=== PATIENT | female | born 1935 | race Caucasian/White ===

== ENCOUNTER → 2022-12-23 12:44 | Outpatient (REF) | payer OTHER, SELFPAY | LOC: WOUND 12:44 | PROVIDERS: ATTENDING PHYSICIAN Surgery; REFERRING PHYSICIAN Nurse Practitioner Adult Health | DX: I87.311 Chronic venous hypertension (idiopathic) with ulcer of right lower extremity (principal); L97.812 Non-pressure chronic ulcer of other part of right lower leg with fat layer exposed; L88 Pyoderma gangrenosum; I87.2 Venous insufficiency (chronic) (peripheral); I73.9 Peripheral vascular disease, unspecified; I10 Essential (primary) hypertension; I73.00 Raynaud's syndrome without gangrene | CPT/HCPCS: 99212 ==

== ENCOUNTER 2023-07-11 15:13 | Observation (INO) | payer OTHER, SELFPAY ==
[2023-07-11 13:03] VITALS: BP 123/76
[2023-07-11 13:32] VITALS: BMI 16.2
[2023-07-11] MEDS: NSS 500 IV (13:49)
[2023-07-11 14:08] LABS: Urine Albumin Trace (Neg - Trace); Urine Bilirubin Negative (Negative); Urine Character Clear (Clear); Urine Color Yellow; Urine Glucose Negative (Negative); Urine Ketone Negative (Negative); Urine Leukocyte Negative (Negative); Urine Nitrite Negative (Negative); Urine Occult Blood Negative (Negative); Urine Urobilinogen Negative (Neg - 1+)
[2023-07-11 14:12] LABS: % Basophils 0.5 % (0-2); % Eosinophils 0.7 % (0-6); % Immature Granulocytes 0.2 % (0-0.5); % Lymphocytes 24.5 % (20.5-51.1); % Neutrophils 66.1 % (42.2-75.2); Absolute Lymphocytes 1.1 10^3/uL (1.2-3.4); Absolute Monocytes 0.4 10^3/uL (0.1-0.6); Absolute Neutrophils 2.9 10^3/uL (1.4-6.5); Hematocrit 38.9 % (37.0-47.0); Hemoglobin 13.3 g/dL (12.0-16.0); Mean Corp Hgb Conc. 34.2 g/dL (33.0-37.0); Mean Corpuscular Hgb 31.9 pg (27.0-31.0); Mean Corpuscular Volume 93.3 fL (81.0-99.0); Mean Platelet Volume 11.4 fL (7.4-10.4); Nucleated Red Blood Cells % 0.5 %; Platelet Count 207 10^3/uL (130-400); Red Blood Cell Count 4.17 10^6/uL (4.20-5.40); Red Cell Dist. Width 13.8 % (11.5-14.5); White Blood Cell Count 4.4 10^3/uL (4.8-10.8)
[2023-07-11 14:18] LABS: ALT (SGPT) 46 U/L (0-35); AST (SGOT) 60 U/L (14-36); Albumin 3.1 g/dl (3.5-5.0); Alkaline Phosphatase 245 U/L (38-126); Blood Urea Nitrogen 64 mg/dl (7-17); Calcium 9.2 mg/dl (8.4-10.2); Carbon Dioxide 33 mmol/L (22-30); Chloride 104 mmol/L (98-107); Estimated Creatinine Clearance 16 ml/min; Glucose 88 mg/dl (70-99); Potassium 3.8 mmol/L (3.5-5.1); Sodium 139 mmol/L (135-145); Total Bilirubin 0.9 mg/dl (0.2-1.3); eGFR 33.52
--- NOTE | 2023-07-11 14:28 | ED.GENMED ---
History of Present Illness
General
Chief Complaint: Failure to Thrive
Time Seen by Provider: 07/11/23 13:22
Travel History
Have you had any contact with someone who has COVID-19?: No
Do you have any symptoms of coronavirus? Fever > 100 degrees, chills, cough, shortness of breath, sore throat, loss of taste or smell, muscle aches, or headache?: No
History of Present Illness
History of Present Illness:
87-year-old female with history of A-fib, chronic lower extremity wounds on provide of doxycycline, mitral valve prolapse, hypertension, hyperlipidemia, and congestive heart failure presents to the emergency department for evaluation of poor p.o.
intake, cognitive changes, and general malaise for the past week. Patient was admitted to this hospital last month for lower extremity cellulitis and also treated for UTI at that time. Has not been on antibiotics for some time. Family is
concerned for a possible UTI. According to her daughter she has a difficult time remembering to take medications and has to be coerced into eating or drinking. Patient denies any acute complaints right now
Past History
Past History
ED Past Medical History: Arrthythmia (Paroxysmal atrial fibrillation), HTN, Hypercholesterolemia, Hypothyroidism and Other (Colitis)
ED Past Surgical History: Orthopedic (Cervical fusion, right foot melanoma removal)
Social History
Tobacco: Non-smoker
Alcohol: None
Personal:
Living: alone
Employment: Retired
Family History
Family History: Other (reviewed and Noncontributory)
Review of Systems
Review of Systems
Allergies reviewed?: Yes
All Other Systems: ROS reviewed and negative except as documented in HPI and ROS
Phy Exam
Physical Exam
Physical Exam:
GEN: Frail and cachectic appearing, no immediate distress
HEENT: Oral mucosa dry, no scleral icterus
Cardiac: Regular rate and rhythm, no murmurs
Lung: No respiratory distress, no tachypnea
Abdomen: Soft, nontender
MSK: No gross deformity or injuries
Skin: Good color, no pallor or jaundice, no rashes
Neuro: AO x3, moves all extremities freely
Psych: Calm, cooperative
Course
Orders/Labs/Results
Orders:
Orders
07/11/23 13:29
Straight cath- Treatment ONCE
0.9% Sodium Chloride 500 ml [Nss] 500 ml IV BOLUS
07/11/23 13:37
Complete Blood Count/With Diff Urgent
Comprehensive Metabolic Panel Urgent
07/11/23 13:48
Urinalysis Reflex To Culture Urgent
Date Specimen was Collected: 07/11/23
Time Specimen was Collected: 13:47
Abnormal Lab Results
07/11/23
13:37
Carbon Dioxide 33 H mmol/L
(22-30)
BUN 64 H mg/dl
(7-17)
Creatinine 1.5 H mg/dL
(0.6-1.0)
AST 60 H U/L
(14-36)
ALT 46 H U/L
(0-35)
Alkaline Phosphatase 245 H U/L
(38-126)
Total Protein 6.0 L g/dl
(6.3-8.2)
Albumin 3.1 L g/dl
(3.5-5.0)
07/11/23 13:37
Vital Signs
Initial and Last Documented VS:
Initial Vital Signs
Temp Pulse Resp BP Pulse Ox
97.7 F 83 16 123/76 100
07/11/23 13:03 07/11/23 13:03 07/11/23 13:03 07/11/23 13:03 07/11/23 13:03
Last Documented Vital Signs
Temp Pulse Resp BP Pulse Ox
97.7 F 83 16 123/76 100
07/11/23 13:03 07/11/23 13:03 07/11/23 13:03 07/11/23 13:03 07/11/23 13:03
MDM/Problems Addressed
MDM/Problems Addressed:
Unclear etiology to the patient's failure to thrive however she does appear severely devitalized and her renal function is abnormal. Cognitive changes are likely on the basis of uremia. Gentle IV fluids initiated in the emergency department. Will
require hospitalization for further IV fluid resuscitation and medical workup
*Critical Care Note
Total Time (30-74mins, 75-104mins- exclusive of procedures): Not Applicable
ED Attending Note
-
Portions of this chart may have been created with voice recognition software.� Occasional wrong word or��sound alike� substitutions may have occurred due to the inherent limitations of voice recognition software.
Discharge Plan
Departure
Patient Disposition: Admit
Date of Disposition: 07/11/23
Time of Disposition: 14:31
Presentation/result/management discussed w/ accepting MD/DO: Hospitalist
Discharge Problem:
Acute kidney injury, Acute metabolic encephalopathy
Prescriptions:
No Action
levothyroxine 50 MCG tablet
50 mcg PO DAILY
cholecalciferol (vitamin D3) 2,000 UNITS tablet
2,000 units PO DAILY
Eliquis 2.5 MG tablet
2.5 mg PO BID
metoprolol tartrate 25 MG tablet
12.5 mg PO BID Qty: 0 0RF
atorvastatin 20 MG tablet
20 mg PO QPM
Hold Instructions: Resume on 06/27/23.
pentoxifylline 400 mg tablet extended release
400 mg PO TID
furosemide 20 mg tablet
20 mg PO DAILY
Probiotic
1 tab PO QPM
doxycycline hyclate 100 MG capsule
100 mg PO BID
metformin 500 mg tablet
500 mg PO DAILY Qty: 0 0RF
Referrals:
Weston Robles MD [Family Provider] -
Interventions
Interventions:
*Risk Screen - Suicide Last Done: 07/11/23 13:32
*General Assessment Last Done: 07/11/23 13:32
*Neglect/Abuse Screening Last Done: 07/11/23 13:32
ED- Fall Risk Assessment Last Done: 07/11/23 13:32
*ED COVID-19 Vaccine History Last Done: 07/11/23 13:03
--- NOTE | 2023-07-11 14:34 | HPS.HSE ---
Addendum entered and electronically signed by Armen Reyes MD 07/11/23 15:14:
I saw and examined the patient.
The D[employer] OPERATOR or PA's note was reviewed and I agree with the note.
Comment: 87-year-old female presents with chief complaints of generalized weakness, fatigue, and poor oral intake.
123/76, 83, 16, 97.7 �F, 100% room air
NAD, awake and alert
RRR, normal S1/S2
CTAB
+BS/soft/NT/ND
CN2-12 intact
WBC 4.4
Cr 1.5, BUN 64
U/A nit/LE NEG, 0 WBC
Failure to thrive:
-pt has very mild FRANCIS and the 1L of NS ordered by the ER will probably bring the pt's Cr back to baseline (wt 38.8kg)
-cont with NS @ 50cc/hr, trend Cr
Weakness:
-PT/OT/CM
Severe protein calorie malnutrition
Original Note:
Family Physician
-
Family Physician: Moose Robles
Chief Complaint
-
generalized weakness, fatigue
History of Present Illness
87-year-old female with history of A-fib, chronic lower extremity wounds on provide of doxycycline, mitral valve prolapse, hypertension, hyperlipidemia, and congestive heart failure presents to the emergency department for evaluation of poor p.o.
intake, cognitive changes, and general malaise for the past week.� Patient was admitted to this hospital last month for lower extremity cellulitis and also treated for UTI at that time. According to her daughter she has a difficult time remembering
to take medications and has to be forced into eating or drinking.patient is sleeping more than usual. today she seemed more disoriented and was not able to focus which prompted daughter to bring her to the ER. � Patient denies any acute complaints
right now. denied fever, chills, chest pain, sob.denied ALLISON,dizzy or syncopal episode. denied abdominal pain, n,v, d. denied dysuria or hematuria.
patient still with b/l LE chronic wounds, wrapped with dressing. patient has chronic left groin excoriating. recived fluids in ER. admitting for further managment.
Medical History
Past Medical History
Past Medical History: Reports Other
Additional Past Medical History:
Paroxysmal A-fib
chronic bilateral lower extremity wounds
Mitral prolapse hypertension
Hyperlipidemia
Congestive heart failure
Past Surgical History: Reports Other
Additional Past Surgical History:
Cervical fusion
Right foot melanoma removed
Social History
Tobacco: Non-smoker
Alcohol: None
Drug: None
Personal: Single
Living: Alone
Family History
Family History: Not pertinent
Allergies / Home Medications
Allergies reflects when Allergies were last updated in [employer].
Home Medications with original date entered in [employer]
Allergy/Medication List:
Allergies
Allergy/AdvReac Type Severity Reaction Status Date / Time
vancomycin Allergy Mild Rash Verified 07/11/23 13:06
Cephalosporins Allergy Unknown Verified 07/11/23 13:06
erythromycin base Allergy HEADACHE Verified 07/11/23 13:06
ethyl chloride Allergy Unknown Verified 07/11/23 13:06
[Ethyl Chloride]
lactose Allergy INTOLERANT Verified 07/11/23 13:06
latex [Latex] Allergy Unknown Verified 07/11/23 13:06
Penicillins Allergy FEET PEEL Verified 07/11/23 13:06
Home Medications
apixaban 2.5 mg tablet (Eliquis) 2.5 mg PO BID Blood clot prevention/tx 09/27/17
levothyroxine 50 mcg tablet 50 mcg PO DAILY Thyroid 09/27/17
Probiotic 1 tab PO QPM Supplement 06/14/23
furosemide 20 mg tablet 20 mg PO DAILYPRN PRN edema 06/14/23
pentoxifylline 400 mg tablet,extended release 400 mg PO TID CVA 06/14/23
metformin 500 mg tablet 500 mg PO DAILY Diabetes #0 tabs 06/18/23
Kaopectate 1 dose PO DAILYPRN PRN diarrhea 07/11/23
atorvastatin 20 mg tablet 20 mg PO DAILY 07/11/23
cholecalciferol (vitamin D3) 50 mcg (2,000 unit) tablet 50 mcg PO DAILY 07/11/23
doxycycline monohydrate 50 mg capsule 50 mg PO NOON 07/11/23
metoprolol tartrate 25 mg tablet 12.5 mg PO BID 07/11/23
mirtazapine 7.5 mg tablet 7.5 mg PO HS 07/11/23
Review of Systems
-
Constitutional: Reports Fatigue
EENT: Reports No Symptoms
Respiratory: Reports No Symptoms
Cardiac: Reports No Symptoms
Abdomen/GI: Reports No Symptoms
: Reports No Symptoms
Musculoskeletal: Reports No Symptoms
Skin: Reports Rash (Left groin rash, bilateral lower extremity wound) and Other
Neurological: Reports Weakness
Endocrine: Reports No Symptoms
Hematologic/Lymphatic: Reports No Symptoms
Psych: Reports No Symptoms
Physical Exam
Vital Signs
Vital Signs
Temp Pulse Resp BP Pulse Ox
97.7 F 83 16 123/76 100
07/11/23 13:03 07/11/23 13:03 07/11/23 13:03 07/11/23 13:03 07/11/23 13:03
Physical Exam
General: Well Developed, Well Nourished and No Apparent Distress
HEENT: NormoCephalic, Moist mucous membranes and Atraumatic
Respiratory: Clear
Cardiac: S1/S2 and Regular Rhythm; No Murmur or Rub
GI: Soft, Non Tender, Non Distended and Normal Bowel Sounds; No Organomegaly
Rectal: Deferred by Provider
Musculoskeletal: No Clubbing, No Cyanosis and No Edema
Skin: Rash and Other (Left groin excoriation, bilateral lower extremity wound)
Neuro: AO x 3 and Nonfocal/grossly intact
Psych: Calm
Laboratory Results
-
07/11/23 13:37
07/11/23 13:37
Laboratory Results
Total Bilirubin 0.9 mg/dl (0.2-1.3) 07/11/23 13:37
AST 60 U/L (14-36) H 07/11/23 13:37
ALT 46 U/L (0-35) H 07/11/23 13:37
Alkaline Phosphatase 245 U/L (38-126) H 07/11/23 13:37
Data Reviewed
-
Lab Data: Labs Reviewed by me
Impression/Plan
-
# Acute encephalopathy likely from poor appetite
-at presentation orienting x3
-UA negative
#poor appetite likely failure to thrive
-speech, dietary consult
#fatigue/weakness likely from poor appetite
-Pt/OT consult
# Acute kidney injury on CKd stage 2 likely dehydration
-BUN 64, creatinine 1.5
-fluids in ER
-monitor BMP in am
-normal saline 50cc/hr
# Chronic LFT elevation
-AST 60, ALT 46, ALK 245
-no complaints of abdominal pain
-ctm
Left groin Baylee intertrigo
-Wound care consulted
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
# Chronic bilateral venous insufficiency
-Wound care consulted.
-Continue pentoxifylline
-doxy continued
#Paroxysmal atrial fibrillation
-Continue Eliquis
-Continue metoprolol
Essential hypertension
Hypercholesterolemia
-� statin
Hypothyroidism
-Continue levothyroxine
#type 2 Dm
-hold metformin due to FRANCIS
-sliding scale
-daily bgm
History of right foot melanoma
Full code
DVT prophylaxis�heparin
[2023-07-11 16:00] VITALS: BP 113/67
[2023-07-11 16:28] VITALS: BMI 16.2
[2023-07-11] MEDS: NSS 1000 IV (16:47)
[2023-07-11 16:48] LABS: Glucose - Point of Care 78 mg/dl (70-99)
[2023-07-11] MEDS: NOVOLOG FLEXPEN-LOW RESISTANCE SC (16:48)
[2023-07-11 17:01] VITALS: BMI 16.2
[2023-07-11] MEDS: TRENTAL 400 MG PO (17:11)
[2023-07-11] MEDS: VISBIOME 1 CAP PO (17:11)
--- NOTE | 2023-07-11 17:15 | PTCARENOTE ---
pt presents from ED via stretcher. pt is AAO*3, room air. Rectal temp 93.4. pt on heidi hugger. pt denies any pain at this time. pt is oriented to the room. daughter at the bedside updated. call ybarra within the reach. will continue plan of care.
[2023-07-11] MEDS: ELIQUIS 2.5 MG PO (20:30)
[2023-07-11] MEDS: DESENEX/MITRAZOL/ZEASORB 1 APPLIC TOPICAL (20:45)
[2023-07-11] MEDS: LOPRESSOR 12.5 MG PO (21:43)
[2023-07-11] MEDS: REMERON 7.5 MG PO (21:44)
[2023-07-11 21:59] LABS: Glucose - Point of Care 103 mg/dl (70-99)
[2023-07-11 23:48] VITALS: BP 111/56
[2023-07-12] MEDS: SYNTHROID 50 MCG PO (05:58)
[2023-07-12 06:19] LABS: Hematocrit 32.6 % (37.0-47.0); Hemoglobin 11.3 g/dL (12.0-16.0); Mean Corp Hgb Conc. 34.7 g/dL (33.0-37.0); Mean Corpuscular Hgb 32.8 pg (27.0-31.0); Mean Corpuscular Volume 94.5 fL (81.0-99.0); Mean Platelet Volume 11.8 fL (7.4-10.4); Platelet Count 172 10^3/uL (130-400); Red Blood Cell Count 3.45 10^6/uL (4.20-5.40); Red Cell Dist. Width 13.7 % (11.5-14.5); White Blood Cell Count 3.9 10^3/uL (4.8-10.8)
[2023-07-12 06:51] LABS: ALT (SGPT) 32 U/L (0-35); AST (SGOT) 47 U/L (14-36); Albumin 2.2 g/dl (3.5-5.0); Alkaline Phosphatase 182 U/L (38-126); Blood Urea Nitrogen 51 mg/dl (7-17); Calcium 8.3 mg/dl (8.4-10.2); Carbon Dioxide 29 mmol/L (22-30); Chloride 107 mmol/L (98-107); Direct Bilirubin 0.4 mg/dl (0.0-0.4); Estimated Creatinine Clearance 22 ml/min; Glucose 67 mg/dl (70-99); Sodium 141 mmol/L (135-145); Total Bilirubin 0.8 mg/dl (0.2-1.3); Total Protein 4.7 g/dl (6.3-8.2); eGFR 48.63
[2023-07-12 07:14] LABS: Glucose - Point of Care 60 mg/dl (70-99)
[2023-07-12 07:33] LABS: Glucose - Point of Care 66 mg/dl (70-99)
[2023-07-12 07:55] VITALS: BP 109/57
[2023-07-12 07:59] LABS: Glucose - Point of Care 99 mg/dl (70-99)
[2023-07-12] MEDS: NOVOLOG FLEXPEN-LOW RESISTANCE SC (08:19)
[2023-07-12] MEDS: TRENTAL 400 MG PO ×3 (08:41→17:04)
[2023-07-12] MEDS: ELIQUIS 2.5 MG PO ×2 (08:41→20:12)
[2023-07-12] MEDS: LOPRESSOR 12.5 MG PO ×2 (08:41→20:59)
[2023-07-12] MEDS: VITAMIN D3 (cholecalciferol) 50 MCG PO (08:41)
[2023-07-12] MEDS: LIPITOR 20 MG PO (08:41)
[2023-07-12] MEDS: DESENEX/MITRAZOL/ZEASORB 1 APPLIC TOPICAL ×2 (08:45→20:09)
[2023-07-12 10:19] VITALS: BMI 16.2
--- NOTE | 2023-07-12 11:05 | PTOTSP ---
Swallowing evaluation completed. Oral/pharyngeal swallowing within functional limits. Loose fitting dentures result in slower mastication. Patient reports that she knows to choose softer items and preferred to stay with current diet of regular and
thin liquids. She reports she has a poor appetite otherwise. Continue current diet for now. ST to monitor tolerance briefly. Continue regular and thin liquids
[2023-07-12 11:41] LABS: Glucose - Point of Care 168 mg/dl (70-99)
--- NOTE | 2023-07-12 11:54 | WOUNDNOTE ---
R ANTERIOR LOWER LEG
--- NOTE | 2023-07-12 11:55 | WOUNDNOTE ---
L LATERAL LOWER LEG
--- NOTE | 2023-07-12 11:56 | WOUNDNOTE ---
WON RN note: Patient admitted with acute kidney injury and acute metabolic encephalopathy.
See H&P for complete history.Patient lives with her daughter who does wound care with compression and is followed monthly by Dr. Fuentes.
PMH: pyoderma gangrenosum ulcer RLE, venous ulcers LLE, a fib (Eliquis), CKD, HTN, R foot melanoma removal, NIDDM, vein ablation. Patient on Doxycycline po for LE's.
Wound Location and type/assessment: Patient known to service, last seen 06/16/23. Admitted with: Healing Full thickness RLE wound to subcutaneous layer r/t venous insufficiency and hx of Pyoderma. L lateral leg with healing venous stasis ulcers.
Both legs mainly at ankles very dry and flaky, trace edema. Wounds much improved since last seen. Sacrum with blanchable red and intact skin. Heels blanchable red and intact. Pedal pulses are audible with Doppler. Seen by Dr Irwin last admission who
recommended compression. Using Farrow wraps at home.
Appetite: good.
Pressure redistribution devices in place: Accumax, patient can turn self in bed. Heels off bed with pillow. Air chair cushion under sacrum when sitting. Was in chair for breakfast this morning.
Plan: Assessed sacrum under silicone border foam. L leg dressing changed using Xeroform and silicone foam. R leg wound applied honey gel, Xeroform, alginate, abd pad and sandrita. A&D ointment applied to both legs, will order mineral oil for tomorrow.
To clean wounds used Vashe. Abdifatah wraps knee high both legs, patient tolerated. Adhesive foams applied to both heels, off bed with air cushion on pillow under calves.All supplies ordered from [facility] and are at bedside.
Will confirm orders with hospitalist and discussed with BRE Young.
Care plan to be updated and will follow as needed.
[2023-07-12] MEDS: NSS 1000 IV (12:17)
[2023-07-12] MEDS: VIBRAMYCIN 50 MG PO (12:17)
[2023-07-12] MEDS: NOVOLOG FLEXPEN-LOW RESISTANCE 1 UNITS SC ×2 (12:24→17:03)
--- NOTE | 2023-07-12 14:57 | W.PN.HOSP.TC ---
Today's Communication/Plan
-
Please see below
Assessment / Plan
Assessment / Plan
Physical Exam
General: Well Developed, Well Nourished and No Apparent Distress
HEENT: Normocephalic, Moist mucous membranes and Atraumatic
Respiratory: Clear
Cardiac: S1/S2 and Regular Rhythm
GI: Soft, Non Tender, Non Distended and Normal Bowel Sounds
Musculoskeletal: No Cyanosis and No Edema
Skin: Rash and Other (Left groin excoriation, bilateral lower extremity wounds covered in dressings)
Neuro: AAO x 3 and Nonfocal/grossly intact
Psych: Calm

Assessment/Plan
# Acute encephalopathy likely from poor appetite
-at presentation orienting x3
-UA negative
#poor appetite likely failure to thrive
-speech, dietary consult
#fatigue/weakness likely from poor appetite
#Failure to Thrive
-Pt/OT consult
# Acute kidney injury on CKd stage 2 likely dehydration
-BUN 64, creatinine 1.5
-fluids in ER
-monitor BMP in am
-normal saline 50cc/hr
# Chronic LFT elevation
-AST 60, ALT 46, ALK 245
-no complaints of abdominal pain
-ctm
Left groin Baylee intertrigo
-Wound care consulted
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
# Chronic bilateral venous insufficiency
-Wound care consulted.
-Continue pentoxifylline
-doxy continued
#Paroxysmal atrial fibrillation
-Continue Eliquis
-Continue metoprolol
Essential hypertension
Hypercholesterolemia
- statin
Hypothyroidism
-Continue levothyroxine
#type 2 Dm
-hold metformin due to FRANCIS
-sliding scale
-daily bgm
#Severe protein calorie malnutrition
History of right foot melanoma
Full code
DVT prophylaxis�On Eliquis
Anticipated Discharge: 24 - 48 hours
Subjective/Interval History
-
Date of Service: July 12, 2023
Patient was seen and examined. She reported no new symptoms and denied any new complaints.
Objective Data
-
Labs:
Laboratory Results
07/12/23
05:11
WBC 3.9 L
Hgb 11.3 L
Hct 32.6 L
Plt Count 172
Sodium 141
Potassium 4.0
Chloride 107
Carbon Dioxide 29
BUN 51 H
Creatinine 1.1 H
Glucose 67 L
Calcium 8.3 L
Total Bilirubin 0.8
AST 47 H
ALT 32
Alkaline Phosphatase 182 H
Vital Signs:
Vital Signs
Temp Pulse Resp BP Pulse Ox
97.5 F 70 18 109/57 100
07/12/23 07:55 07/12/23 07:55 07/12/23 07:55 07/12/23 07:55 07/12/23 07:55
I&O
07/11/23 07/12/23 07/13/23
06:59 06:59 06:59
Intake Total 600 / 600
Balance 600 / 600
[2023-07-12 15:55] VITALS: BP 97/59
--- NOTE | 2023-07-12 16:03 | CM ---
Alert awake oriented patient who lives alone in a 1 story home with 2 steps to enter. Bed/bathroom are on first floor.She is assisted in all activities of daily living by jean Gonzalez..Offered VN she requested [facility] resumption.
Cane walker
[facility] ?SNF hx
Pharmacy [facility]
PCP Dr Joao Mendez
PLAN Home with [facility]
--- NOTE | 2023-07-12 16:25 | PTCARENOTE ---
Patient placed back on Benjamin hugger, unable to obtain oral temp. Rectal temp 94.7.
[2023-07-12 16:33] VITALS: BMI 17.8
[2023-07-12 16:56] LABS: Glucose - Point of Care 199 mg/dl (70-99)
[2023-07-12] MEDS: VISBIOME 1 CAP PO (17:04)
[2023-07-12] MEDS: REMERON 7.5 MG PO (20:58)
[2023-07-12 21:26] LABS: Glucose - Point of Care 146 mg/dl (70-99)
[2023-07-12 23:33] VITALS: BP 99/49
[2023-07-13 03:06] LABS: Glucose - Point of Care 64 mg/dl (70-99)
[2023-07-13 03:42] LABS: Glucose - Point of Care 144 mg/dl (70-99)
--- NOTE | 2023-07-13 03:45 | PTCARENOTE ---
Blood sugar at 0300, -- 64, patient asymptomatic, juice provided. Recheck blood sugar at this time is 144.
[2023-07-13] MEDS: SYNTHROID 50 MCG PO (06:26)
[2023-07-13 07:17] LABS: Glucose - Point of Care 78 mg/dl (70-99)
[2023-07-13] MEDS: NOVOLOG FLEXPEN-LOW RESISTANCE SC ×2 (07:30→13:18)
[2023-07-13 07:31] VITALS: BP 108/65
[2023-07-13 08:29] VITALS: BMI 16.5
[2023-07-13 08:31] VITALS: BP 108/65
[2023-07-13 09:33] LABS: Glucose - Point of Care 74 mg/dl (70-99)
[2023-07-13] MEDS: TRENTAL 400 MG PO ×3 (09:42→17:14)
[2023-07-13] MEDS: LOPRESSOR 12.5 MG PO ×2 (09:42→19:28)
[2023-07-13] MEDS: VITAMIN D3 (cholecalciferol) 50 MCG PO (09:42)
[2023-07-13] MEDS: ELIQUIS 2.5 MG PO ×2 (09:42→19:26)
[2023-07-13] MEDS: LIPITOR 20 MG PO (09:43)
[2023-07-13] MEDS: HYDROPHOR 1 APPLIC TOPICAL (09:44)
[2023-07-13] MEDS: DESENEX/MITRAZOL/ZEASORB 1 APPLIC TOPICAL ×2 (09:45→19:31)
[2023-07-13] MEDS: VIBRAMYCIN 50 MG PO (12:11)
[2023-07-13 12:58] LABS: Glucose - Point of Care 118 mg/dl (70-99)
[2023-07-13 15:55] VITALS: BP 93/53
[2023-07-13 17:10] LABS: Glucose - Point of Care 170 mg/dl (70-99)
[2023-07-13] MEDS: NOVOLOG FLEXPEN-LOW RESISTANCE 1 UNITS SC (17:13)
[2023-07-13] MEDS: VISBIOME 1 CAP PO (17:14)
--- NOTE | 2023-07-13 17:17 | W.PN.HOSP.TC ---
Today's Communication/Plan
-
PT/OT
Placement
Assessment / Plan
Assessment / Plan
Physical Exam
General: Well Developed, Well Nourished and No Apparent Distress
HEENT: Normocephalic, Moist mucous membranes and Atraumatic
Respiratory: Clear
Cardiac: S1/S2 and Regular Rhythm
GI: Soft, Non Tender, Non Distended and Normal Bowel Sounds
Musculoskeletal: No Cyanosis and No Edema
Skin: Rash and Other (Left groin excoriation, bilateral lower extremity wounds covered in dressings)
Neuro: AAO x 3 and Nonfocal/grossly intact
Psych: Calm

Assessment/Plan
# Acute encephalopathy likely from poor appetite
-at presentation oriented x3
-UA negative
#Poor appetite likely failure to thrive
-speech, dietary consult
#fatigue/weakness likely from poor appetite
#Failure to Thrive
-Pt/OT consult
# Acute kidney injury on CKd stage 2 likely dehydration
-BUN 64, creatinine 1.5
-fluids in ER
-monitor BMP
-normal saline 50cc/hr
# Chronic LFT elevation
-AST 60, ALT 46, ALK 245
-no complaints of abdominal pain
-ctm
Left groin Baylee intertrigo
-Wound care consulted
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
# Chronic bilateral venous insufficiency
-Wound care consulted.
-Continue pentoxifylline
-doxy continued
#Paroxysmal atrial fibrillation
-Continue Eliquis
-Continue metoprolol
Essential hypertension
Hypercholesterolemia
- statin
Hypothyroidism
-Continue levothyroxine
#type 2 Dm
-hold metformin due to FRANCIS
-sliding scale
-daily bgm
#Severe protein calorie malnutrition
History of right foot melanoma
Full code
DVT prophylaxis�On Eliquis
Anticipated Discharge: > 48 hours
Subjective/Interval History
-
Date of Service: July 13, 2023
Patient was seen and examined. She denied any new symptoms.
Objective Data
-
Vital Signs:
Vital Signs
Temp Pulse Resp BP Pulse Ox
97.5 F 61 14 108/65 99
07/13/23 10:00 07/13/23 09:42 07/13/23 07:31 07/13/23 09:42 07/13/23 07:31
I&O
07/12/23 07/13/23 07/14/23
06:59 06:59 06:59
Intake Total 600 / 600 840 / 840
Balance 600 / 600 840 / 840
[2023-07-13 20:20] LABS: Hemoglobin 11.7 g/dL (12.0-16.0); Mean Corp Hgb Conc. 34.4 g/dL (33.0-37.0); Mean Corpuscular Hgb 32.1 pg (27.0-31.0); Mean Corpuscular Volume 93.2 fL (81.0-99.0); Platelet Count 171 10^3/uL (130-400); Red Blood Cell Count 3.65 10^6/uL (4.20-5.40)
[2023-07-13 20:48] LABS: ALT (SGPT) 60 U/L (0-35); AST (SGOT) 92 U/L (14-36); Albumin 2.2 g/dl (3.5-5.0); Alkaline Phosphatase 236 U/L (38-126); Blood Urea Nitrogen 32 mg/dl (7-17); Calcium 8.4 mg/dl (8.4-10.2); Carbon Dioxide 29 mmol/L (22-30); Chloride 105 mmol/L (98-107); Estimated Creatinine Clearance 28 ml/min; Glucose 173 mg/dl (70-99); Potassium 3.8 mmol/L (3.5-5.1); Sodium 137 mmol/L (135-145); Total Bilirubin 0.7 mg/dl (0.2-1.3); Total Protein 4.8 g/dl (6.3-8.2); eGFR > 60.00
[2023-07-13] MEDS: REMERON 7.5 MG PO (21:17)
[2023-07-13 21:29] LABS: Glucose - Point of Care 127 mg/dl (70-99)
[2023-07-13 23:44] VITALS: BP 141/80
[2023-07-14 03:09] LABS: Glucose - Point of Care 91 mg/dl (70-99)
[2023-07-14] MEDS: SYNTHROID 50 MCG PO (05:56)
[2023-07-14 07:00] VITALS: BP 116/66
[2023-07-14 07:57] LABS: % Basophils 0.5 % (0-2); % Immature Granulocytes 0.3 % (0-0.5); % Neutrophils 63.2 % (42.2-75.2); Absolute Lymphocytes 1.1 10^3/uL (1.2-3.4); Absolute Monocytes 0.3 10^3/uL (0.1-0.6); Absolute Neutrophils 2.4 10^3/uL (1.4-6.5); Hematocrit 34.1 % (37.0-47.0); Hemoglobin 11.5 g/dL (12.0-16.0); Mean Corp Hgb Conc. 33.7 g/dL (33.0-37.0); Mean Corpuscular Hgb 31.3 pg (27.0-31.0); Mean Corpuscular Volume 92.9 fL (81.0-99.0); Mean Platelet Volume 11.4 fL (7.4-10.4); Nucleated Red Blood Cells % 0.8 %; Platelet Count 170 10^3/uL (130-400); Red Blood Cell Count 3.67 10^6/uL (4.20-5.40); Red Cell Dist. Width 14.2 % (11.5-14.5); White Blood Cell Count 3.9 10^3/uL (4.8-10.8)
--- NOTE | 2023-07-14 08:19 | W.PN.HOSP.TC ---
Today's Communication/Plan
-
Discharge today
Assessment / Plan
Assessment / Plan
Physical Exam
General: Well Developed, Well Nourished and No Apparent Distress
HEENT: Normocephalic, Moist mucous membranes and Atraumatic
Respiratory: Clear
Cardiac: S1/S2 and Regular Rhythm
GI: Soft, Non Tender, Non Distended and Normal Bowel Sounds
Musculoskeletal: No Cyanosis and No Edema
Skin: Rash and Other (Left groin excoriation, bilateral lower extremity wounds covered in dressings)
Neuro: AAO x 3 and Nonfocal/grossly intact
Psych: Calm

Assessment/Plan
# Acute encephalopathy likely from poor appetite
-At presentation oriented x3
-UA negative
-CXR with no pneumonia
#Small bilateral pleural effusions with mild adjacent basilar compressive atelectasis.
#Cardiomegaly
#Poor appetite likely failure to thrive
-Speech, dietary consult
#Chronic Hypothermia
-Possibly from malnutrition
-Outpatient work-up and treatment
#fatigue/weakness likely from poor appetite
#Failure to Thrive
-PT/OT consult
# Acute kidney injury - RESOLVED - on CKD Stage 2 - likely dehydration
-fluids in ER
-monitor BMP
# Chronic Hepatic Transaminase elevation
-AST 60, ALT 46, ALK 245
-no complaints of abdominal pain
-ctm
#Left groin Baylee intertrigo
-Wound care consulted
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
# Chronic bilateral venous insufficiency
-Wound care consulted.
-Continue pentoxifylline
-doxy continued
#Normocytic Anemia
-Will need outpatient workup
#Paroxysmal atrial fibrillation
-Continue Eliquis
-Continue metoprolol
#Essential hypertension
#Hypercholesterolemia
- statin
#Hypothyroidism
-Continue levothyroxine
#Type 2 Diabetes Mellitus
-Resume Metformin on discharge
-sliding scale
-daily bgm
#Severe protein calorie malnutrition
#History of right foot melanoma
Full code
DVT prophylaxis�On Eliquis
I spoke extensively on 07/14/23 with patient's daughter; all questions and concerns were answered to satisfaction.
More than 30 minutes spent in discharge including
Final examination of the patient
Summarizing hospital stay
Instructions for continuing care to all relevant caregivers
Preparation of discharge records, prescriptions, and referral forms
Total time spent (in minutes): 55
Anticipated Discharge: Today
Subjective/Interval History
-
Date of Service: July 14, 2023
Patient was seen and examined. She reported no new symptoms or complaints.
Objective Data
-
Labs:
Laboratory Results
07/13/23 07/14/23
20:14 07:32
WBC 5.0 3.9 L
Hgb 11.7 L 11.5 L
Hct 34.0 L 34.1 L
Plt Count 171 170
Sodium 137 Pending
Potassium 3.8 Pending
Chloride 105 Pending
Carbon Dioxide 29 Pending
BUN 32 H Pending
Creatinine 0.9 Pending
Glucose 173 H Pending
Calcium 8.4 Pending
Total Bilirubin 0.7 Pending
AST 92 H Pending
ALT 60 H Pending
Alkaline Phosphatase 236 H Pending
Vital Signs:
Vital Signs
Temp Pulse Resp BP Pulse Ox
97.3 F 68 16 141/80 99
07/13/23 23:45 07/13/23 23:44 07/13/23 23:44 07/13/23 23:44 07/13/23 23:44
I&O
07/13/23 07/14/23 07/15/23
06:59 06:59 06:59
Intake Total 840 / 840 720 / 720
Output Total 100 / 100
Balance 840 / 840 620 / 620
[2023-07-14 08:44] LABS: ALT (SGPT) 65 U/L (0-35); AST (SGOT) 82 U/L (14-36); Albumin 2.2 g/dl (3.5-5.0); Alkaline Phosphatase 282 U/L (38-126); Blood Urea Nitrogen 25 mg/dl (7-17); Calcium 8.1 mg/dl (8.4-10.2); Carbon Dioxide 28 mmol/L (22-30); Chloride 112 mmol/L (98-107); Estimated Creatinine Clearance 28 ml/min; Glucose 75 mg/dl (70-99); Potassium 3.8 mmol/L (3.5-5.1); Sodium 138 mmol/L (135-145); Total Bilirubin 0.8 mg/dl (0.2-1.3); Total Protein 4.8 g/dl (6.3-8.2); eGFR > 60.00
[2023-07-14] MEDS: ELIQUIS 2.5 MG PO (08:55)
[2023-07-14] MEDS: LIPITOR 20 MG PO (08:55)
[2023-07-14] MEDS: TRENTAL 400 MG PO ×2 (08:55→13:27)
[2023-07-14 09:06] LABS: Lactic Acid 0.7 mmol/L (0.7-2.0)
[2023-07-14 09:15] LABS: Glucose - Point of Care 67 mg/dl (70-99)
[2023-07-14] MEDS: NOVOLOG FLEXPEN-LOW RESISTANCE SC ×2 (09:15→11:15)
[2023-07-14] MEDS: DESENEX/MITRAZOL/ZEASORB 1 APPLIC TOPICAL (09:15)
[2023-07-14 09:50] LABS: Glucose - Point of Care 103 mg/dl (70-99)
[2023-07-14 10:12] VITALS: BP 124/73; PULSE 77
[2023-07-14 10:13] LABS: Cortisol, Random 6.9 ug/dl
[2023-07-14 11:09] LABS: Glucose - Point of Care 82 mg/dl (70-99)
[2023-07-14] MEDS: LOPRESSOR 12.5 MG PO (11:11)
[2023-07-14] MEDS: VITAMIN D3 (cholecalciferol) 50 MCG PO (11:11)
[2023-07-14] MEDS: HYDROPHOR 1 APPLIC TOPICAL (11:13)
[2023-07-14] MEDS: VIBRAMYCIN 50 MG PO (13:27)
[2023-07-14 15:00] VITALS: BP 91/60
--- NOTE | 2023-07-14 16:15 | W.DS.TRANS ---
DC Summary - Cloth Hand
-
Discharge Instructions:
Sleep Apnea Risk Low
Discharge Diagnosis/Procedures #Acute encephalopathy likely from poor appetite
#Small bilateral pleural effusions with mild
adjacent basilar compressive atelectasis.
#Cardiomegaly
#Poor appetite likely failure to thrive
#Chronic Hypothermia
#Fatigue/weakness likely from poor appetite
#Failure to Thrive
#Acute kidney injury - RESOLVED - on CKD Stage 2
- likely dehydration
#Chronic Hepatic Transaminase elevation
#Left groin Baylee intertrigo
#Right lower extremity wound secondary to
pyoderma gangrenosum
#Chronic bilateral venous insufficiency
#Normocytic Anemia
#Paroxysmal atrial fibrillation
#Essential hypertension
#Hypercholesterolemia
#Hypothyroidism
#Type 2 Diabetes Mellitus
#Severe protein calorie malnutrition
#History of right foot melanoma
Diet As tolerated
Activity As tolerated
Driving Restrictions No driving
Other Services VN
Specialty Instructions Weigh Daily
Instructions:
Stand-Alone Forms:
Changes to Home Medications: No
Discharge Medications:
DC Medications w/original date entered in [employer]
apixaban 2.5 mg tablet (Eliquis) 2.5 mg PO BID Blood clot prevention/tx 09/27/17
levothyroxine 50 mcg tablet 50 mcg PO DAILY Thyroid 09/27/17
Probiotic 1 tab PO QPM Supplement 06/14/23
furosemide 20 mg tablet 20 mg PO DAILYPRN PRN edema 06/14/23
pentoxifylline 400 mg tablet,extended release 400 mg PO TID CVA 06/14/23
metformin 500 mg tablet 500 mg PO DAILY Diabetes #0 tabs 06/18/23
Kaopectate 1 dose PO DAILYPRN PRN diarrhea 07/11/23
atorvastatin 20 mg tablet 20 mg PO DAILY High Cholesterol 07/11/23
cholecalciferol (vitamin D3) 50 mcg (2,000 unit) tablet 50 mcg PO DAILY Supplement 07/11/23
doxycycline monohydrate 50 mg capsule 50 mg PO NOON Infection prophylaxis LE wound 07/11/23
metoprolol tartrate 25 mg tablet 12.5 mg PO BID Blood Pressure 07/11/23
mirtazapine 7.5 mg tablet 7.5 mg PO HS Mental Health/Anxiety 07/11/23
Home Medication Changes
Pending Results: No
Total time spent discharging patient (in min): 55
--- NOTE | 2023-07-14 16:42 | CM ---
entered order for discharge.
Spoke with patient and dgt Lisa [phone] . Reviewed PT OT dany recommended SNF. Lisa dgt said she wants to take her home home with [facility]ANEG[facility] .Daughter assists mom with adls daily.
Referral for [facility] in care port . Pt accepted. Inform Lisa from [facility] pt is dc today.
Lisa called and she said she will drive her mom home today.
PLAN Home with [facility] fax [phone]
--- NOTE | 2023-07-17 08:55 | W.DCSUMMARY ---
Discharge Summary
Discharge Data
Date of Admission: 07/11/23
Date of Discharge: 07/14/23
Total time spent discharging patient (in min): 55
-
Pending Results: No
Hospital Course
87-year-old female presented with generalized weakness, fatigue, and poor oral intake. Patient was admitted with failure to thrive and acute kidney injury. Patient's acute kidney injury resolved and medical condition improved. She was ready for
discharge.
Discharge Plan
-
Patient Disposition: Home with Home Care
Discharge Diagnosis/Procedures: #Acute encephalopathy likely from poor appetite
#Small bilateral pleural effusions with mild adjacent basilar compressive atelectasis.
#Cardiomegaly
#Poor appetite likely failure to thrive
#Chronic Hypothermia
#Fatigue/weakness likely from poor appetite
#Failure to Thrive
#Acute kidney injury - RESOLVED - on CKD Stage 2 - likely dehydration
#Chronic Hepatic Transaminase elevation
#Left groin Baylee intertrigo
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
#Chronic bilateral venous insufficiency
#Normocytic Anemia
#Paroxysmal atrial fibrillation
#Essential hypertension
#Hypercholesterolemia
#Hypothyroidism
#Type 2 Diabetes Mellitus
#Severe protein calorie malnutrition
#History of right foot melanoma
Condition: Fair
Diet: As tolerated
Activity: As tolerated
Driving Restrictions: No driving
Other Services: VN
Specialty Instructions: Weigh Daily- Call MD for wt gain/loss 3 lbs overnight/5 lbs in 1 week
Activity Restrictions/Additional Instructions:
Wound Care Instructions
L leg: clean with soap and water, Xeroform and silicone foam change q other day and prn drainage.
R leg: clean with soap and water, skin prep periwound, honey gel, Xeroform, alginate, abd pad and sandrita q other day and prn drainage.
both legs/feet mineral oil daily.
Resume Farrow wraps daily
leg elevation when sitting
increase protein in diet
air cushion when sitting, can take upon discharge.
Follow up with digital campaign manager.
Referrals:
Weston Robles MD [Family Provider] - in less than 1 week
Prescriptions:
Continued
levothyroxine 50 MCG tablet
50 mcg PO DAILY
Eliquis 2.5 MG tablet
2.5 mg PO BID
pentoxifylline 400 mg tablet extended release
400 mg PO TID
Patient Comments:
07/11/2023, pt.'s daughter states that pt.'s struggles taking more than two tablets in a day. This med. is prescribed for pt. to take TID.
furosemide 20 mg tablet
20 mg PO DAILYPRN PRN (Reason: edema)
Probiotic
1 tab PO QPM
metformin 500 mg tablet
500 mg PO DAILY Qty: 0 0RF
atorvastatin 20 mg Tablet
20 mg PO DAILY
doxycycline monohydrate 50 mg Capsule
50 mg PO NOON
metoprolol tartrate 25 mg Tablet
12.5 mg PO BID
mirtazapine 7.5 mg Tablet
7.5 mg PO HS
cholecalciferol (vitamin D3) 50 mcg (2,000 unit) Tablet
50 mcg PO DAILY
Kaopectate liquid
1 dose PO DAILYPRN PRN (Reason: diarrhea)
Discharge Orders:
Discharge Patient (As Directed); Ordered 07/14/23
Ordered By: Andrea Urban
Discharge Date and Time
Discharge Date/Time: 07/14/23 19:12
== END 2023-07-14 19:12 | disposition home health service (06) ==
LOC: 4 EAST ACU 15:13
PROVIDERS: Physician Assistant; Registered Nurse; ADMITTING PHYSICIAN Internal Medicine; ATTENDING PHYSICIAN Hospitalist; EMERGENCY PHYSICIAN Emergency Medicine; FAMILY PHYSICIAN Internal Medicine
DX: R53.1 Weakness (principal); R53.83 Other fatigue; G93.40 Encephalopathy, unspecified; N17.9 Acute kidney failure, unspecified; I48.0 Paroxysmal atrial fibrillation; I13.0 Hypertensive heart and chronic kidney disease with heart failure and stage 1 through stage 4 chronic kidney disease, or unspecified chronic kidney disease; Z68.1 Body mass index [BMI] 19.9 or less, adult; E43 Unspecified severe protein-calorie malnutrition; E78.5 Hyperlipidemia, unspecified; E03.9 Hypothyroidism, unspecified; E78.00 Pure hypercholesterolemia, unspecified; R63.0 Anorexia; I34.1 Nonrheumatic mitral (valve) prolapse; B37.2 Candidiasis of skin and nail; E11.22 Type 2 diabetes mellitus with diabetic chronic kidney disease; J90 Pleural effusion, not elsewhere classified; J98.11 Atelectasis; I87.2 Venous insufficiency (chronic) (peripheral); R68.0 Hypothermia, not associated with low environmental temperature; L88 Pyoderma gangrenosum; D64.9 Anemia, unspecified; S81.801A Unspecified open wound, right lower leg, initial encounter; X58.XXXA Exposure to other specified factors, initial encounter; I50.9 Heart failure, unspecified; Z87.440 Personal history of urinary (tract) infections; Z79.890 Hormone replacement therapy; Z79.01 Long term (current) use of anticoagulants; Z79.84 Long term (current) use of oral hypoglycemic drugs; Z88.0 Allergy status to penicillin; Z88.1 Allergy status to other antibiotic agents; Z91.040 Latex allergy status; Z91.011 Allergy to milk products; Z85.820 Personal history of malignant melanoma of skin
CPT/HCPCS: 71046; 80053; 81003; 82248; 82533; 82962; 83605; 85025; 85027; 87070; 92610; 93005; 96360; 97116; 97163; 97167; 97530; 99284; G0378

== ENCOUNTER 2023-08-24 22:43 | Inpatient (IN) | payer OTHER, SELFPAY ==
[2023-08-24] VITALS (9 sets, daily range): BP systolic 61–121; BP diastolic 43–74; BMI 18.9; BMI 17.6
--- NOTE | 2023-08-24 19:40 | ED.GENMED ---
History of Present Illness
<MAURICIO Alonzo - Last Filed: 08/24/23 21:30>
General
Chief Complaint: Skin Problem
Source: patient and family (daughter)
Exam Limitations: none
Time Seen by Provider: 08/24/23 19:08
Travel History
Have you had any contact with someone who has COVID-19?: No
Do you have any symptoms of coronavirus? Fever > 100 degrees, chills, cough, shortness of breath, sore throat, loss of taste or smell, muscle aches, or headache?: No
History of Present Illness
History of Present Illness:
This is a 87 year old female that comes in with c/o right groin infection. Daughter states that she was in the hospital in May due to ulcers on her legs. State that at that time they treated a rash in her groin with Powder and this cleared up.
States that she has VN comes one a week but she did not realized that it was a different nurse and they must not have been checking her groin. States that she had called the PCP and they ordered an Ointment BID which was started on either the 1st or
the 8ith. States that today she was in the same pants since yesterday so she told her she had to change her pants. States that she went into the bathroom to get the pants she was taking off and saw that her right groin is red and draining blood.
States that today she has been very lethargic and can barley walk on her own. Daughter states that they just increased her Doxycycline to 50mg BID but she has not started that yet. States that she is also using gentamicin ointment on the open
wounds of the lower legs. Denies any fever, chills, chest pain, SOB, abd pain, nausea, vomiting, diarrhea. headache, dizziness, urinary burning.
Past History
<MAURICIO Alonzo - Last Filed: 08/24/23 21:30>
Past History
ED Past Medical History: Arrthythmia (Paroxysmal atrial fibrillation), CHF, HTN, Hypercholesterolemia, Hypothyroidism and Other (Colitis, Back pain, MVP, Tricuspid Valve disease, Gi bleeding. Diverticulitis, right groin Hernia)
ED Past Surgical History: Orthopedic (Cervical fusion, right foot melanoma removal) and Other (Cataracts, )
Social History
Tobacco: Non-smoker
Alcohol: None
Personal:
Living: alone
Employment: Retired
Family History
Family History: Other (reviewed and Noncontributory)
Review of Systems
<MAURICIO Alonzo - Last Filed: 08/24/23 21:30>
Review of Systems
All Other Systems: ROS reviewed and negative except as documented in HPI and ROS
Constitutional: Reports no symptoms
EENT: Reports no symptoms
Respiratory: Denies cough or trouble breathing
Cardiac: Denies chest pain
ABD/GI: Denies abdominal pain, nausea, vomiting or diarrhea (Had diarrhea 2 days ago)
: Reports no symptoms; Denies dysuria, frequency or urgency
Musculoskeletal: Reports no symptoms
Skin: Reports other (Redness and drainage right groin)
Neurological: Reports other (lethargic, daughter states not herself. ); Denies dizzy or headache
Psychiatric: Reports no symptoms
Phy Exam
<MAURICIO Alonzo - Last Filed: 08/24/23 21:30>
General Physical Exam
General Presentation: no apparent distress
General age: appears stated age
General Skin: dry and cool
General Habitus: elderly
General Mental: alert
General Hydration: appears well hydrated
ENT Exam
ENT Exam: TM's normal, pharynx normal and neck supple
Eye Exam
Eye Exam: EOMI
Cardiovascular Exam
Cardiovascular Exam: regular rate/rhythm and normal peripheral pulses
Pulmonary Exam
Pulmonary Exam: lungs clear, no respiratory distress, no rales, chest non tender, no crackles, no rhonchi, no wheezing and no cough
Gastrointestinal Exam
Gastrointestinal Exam: normal bowel sounds, non tender, soft, no pulsatile mass, non distended and other (Large right groin hernia)
Musculoskeletal Exam
Musculoskeletal Exam: full ROM and edema (Lower legs pitting +1 of ankles)
Skin Exam
Skin Exam: no petechia, pallor, redness (Right groin into the vaginal area and on the left groin slightly into the rectal area. Moist with bloody drainage noted. ) and other (Chronic [place] stasis dermatitis, Open wound on the right lower chen. Small
open wounds on the left lower legs X 3, )
Psychiatric Exam
Psychiatric Exam: normal mood/affect
Course
<MAURICIO Alonzo - Last Filed: 08/24/23 21:30>
Orders/Labs/Results
Orders:
Orders
08/24/23 19:45
Blood Culture Q30M
LUTHER Source: Blood/Venous
Specimen Description:
08/24/23 19:55
Rectal Temp- Treatment ONCE
08/24/23 20:08
Complete Blood Count/With Diff Urgent
Comprehensive Metabolic Panel Urgent
Lactic Acid Urgent
Blood Culture Q30M
LUTHER Source: Blood/Venous
Specimen Description:
Wound Culture [Wound/Abscess/Other Culture] Urgent
LUTHER Source: Groin
Specimen Description: Right
Date Specimen was Collected: 08/24/23
Time Specimen was Collected: 19:42
08/24/23 20:36
Electrocardiogram (*1) Urgent
Reason for Study: Atrial Fibrillation
EKG- Treatment ONCE
0.9% Sodium Chloride 500 ml [Nss] 500 ml IV BOLUS
08/24/23 20:53
CR Chest Portable - 1 View Urgent
Comment:
Reason For Exam: hypothermia
Reason Study Needs to be Portable: Unable to Transport
08/24/23 20:55
Doxycycline [Vibramycin] 50 mg PO NOW STA
08/24/23 21:08
Urinalysis Reflex To Culture Urgent
Date Specimen was Collected: 08/24/23
Time Specimen was Collected: 20:51
Urine Microscopic Reflex Cult Urgent
Urine Culture Urgent
LUTHER Source: U
Specimen Description:
Date Specimen was Collected: 08/24/23
Time Specimen was Collected: 20:51
08/24/23 21:27
Piperacillin/Tazo 3.375 Gram [Zosyn] 3.375 gram in 50 ml IV NOW
Vancomycin 1 Gram/200 ml [Vancocin] 1 gram in 200 ml IV NOW
Abnormal Lab Results
08/24/23 08/24/23
20:08 21:08
RBC 3.56 L 10^6/uL
(4.20-5.40)
Hgb 11.7 L g/dL
(12.0-16.0)
Hct 34.0 L %
(37.0-47.0)
MCH 32.9 H pg
(27.0-31.0)
RDW 16.9 H %
(11.5-14.5)
Plt Count 127 L 10^3/uL
(130-400)
MPV 12.6 H fL
(7.4-10.4)
Absolute Lymphs (auto) 0.3 L 10^3/uL
(1.2-3.4)
Neutrophils % 91.0 H %
(42.2-75.2)
Lymphocytes % 4.7 L %
(20.5-51.1)
BUN 67 H mg/dl
(7-17)
Creatinine 1.3 H mg/dL
(0.6-1.0)
Glucose 112 H mg/dl
(70-99)
AST 148 H U/L
(14-36)
ALT 144 H U/L
(0-35)
Alkaline Phosphatase 433 H U/L
(38-126)
Total Protein 5.5 L g/dl
(6.3-8.2)
Albumin 3.0 L g/dl
(3.5-5.0)
Urine Nitrite (Reflex) Positive A
(Negative)
Leukocyte Esterase Rfl Trace A
(Negative)
Urine Bacteria (Reflex) Many A
(Negative)
08/24/23 20:08
08/24/23 20:08
H/H low. Plt slightly low. Chronic renal insufficiency, AST/ALT elevation (history of Hepatitis), Lactic acid 1.3, Total protein Slightly low. Albumin slightly low.
Urine questionable for infection, Culture is pending.
Vital Signs
Initial and Last Documented VS:
Initial Vital Signs
Pulse Resp BP Pulse Ox
57 16 121/74 94
08/24/23 18:33 08/24/23 18:33 08/24/23 18:33 08/24/23 18:33
Last Documented Vital Signs
Temp Pulse Resp BP Pulse Ox
90.7 F L 45 15 94/62 99
08/24/23 20:17 08/24/23 21:16 08/24/23 21:16 08/24/23 21:16 08/24/23 20:19
Donilt;Altaf Quintero DO - Last Filed: 08/24/23 21:35>
Orders/Labs/Results
Orders:
Orders
08/24/23 19:45
Blood Culture Q30M
LUTHER Source: Blood/Venous
Specimen Description:
08/24/23 19:55
Rectal Temp- Treatment ONCE
08/24/23 20:08
Complete Blood Count/With Diff Urgent
Comprehensive Metabolic Panel Urgent
Lactic Acid Urgent
Blood Culture Q30M
LUTHER Source: Blood/Venous
Specimen Description:
Wound Culture [Wound/Abscess/Other Culture] Urgent
LUTHER Source: Groin
Specimen Description: Right
Date Specimen was Collected: 08/24/23
Time Specimen was Collected: 19:42
08/24/23 20:36
Electrocardiogram (*1) Urgent
Reason for Study: Atrial Fibrillation
EKG- Treatment ONCE
0.9% Sodium Chloride 500 ml [Nss] 500 ml IV BOLUS
08/24/23 20:53
CR Chest Portable - 1 View Urgent
Comment:
Reason For Exam: hypothermia
Reason Study Needs to be Portable: Unable to Transport
08/24/23 20:55
Doxycycline [Vibramycin] 50 mg PO NOW STA
08/24/23 21:08
Urinalysis Reflex To Culture Urgent
Date Specimen was Collected: 08/24/23
Time Specimen was Collected: 20:51
Urine Microscopic Reflex Cult Urgent
Urine Culture Urgent
LUTHER Source: U
Specimen Description:
Date Specimen was Collected: 08/24/23
Time Specimen was Collected: 20:51
08/24/23 21:27
Piperacillin/Tazo 3.375 Gram [Zosyn] 3.375 gram in 50 ml IV NOW
Vancomycin 1 Gram/200 ml [Vancocin] 1 gram in 200 ml IV NOW
Abnormal Lab Results
08/24/23 08/24/23
20:08 21:08
RBC 3.56 L 10^6/uL
(4.20-5.40)
Hgb 11.7 L g/dL
(12.0-16.0)
Hct 34.0 L %
(37.0-47.0)
MCH 32.9 H pg
(27.0-31.0)
RDW 16.9 H %
(11.5-14.5)
Plt Count 127 L 10^3/uL
(130-400)
MPV 12.6 H fL
(7.4-10.4)
Absolute Lymphs (auto) 0.3 L 10^3/uL
(1.2-3.4)
Neutrophils % 91.0 H %
(42.2-75.2)
Lymphocytes % 4.7 L %
(20.5-51.1)
BUN 67 H mg/dl
(7-17)
Creatinine 1.3 H mg/dL
(0.6-1.0)
Glucose 112 H mg/dl
(70-99)
AST 148 H U/L
(14-36)
ALT 144 H U/L
(0-35)
Alkaline Phosphatase 433 H U/L
(38-126)
Total Protein 5.5 L g/dl
(6.3-8.2)
Albumin 3.0 L g/dl
(3.5-5.0)
Urine Nitrite (Reflex) Positive A
(Negative)
Leukocyte Esterase Rfl Trace A
(Negative)
Urine Bacteria (Reflex) Many A
(Negative)
08/24/23 20:08
08/24/23 20:08
Vital Signs
Initial and Last Documented VS:
Initial Vital Signs
Pulse Resp BP Pulse Ox
57 16 121/74 94
08/24/23 18:33 08/24/23 18:33 08/24/23 18:33 08/24/23 18:33
Last Documented Vital Signs
Temp Pulse Resp BP Pulse Ox
90.7 F L 45 15 94/62 99
08/24/23 20:17 08/24/23 21:16 08/24/23 21:16 08/24/23 21:16 08/24/23 20:19
<MAURICIO Alonzo - Last Filed: 08/24/23 21:30>
MDM/Problems Addressed
Differential Diagnosis Includes:
Cellulitis with Fungal infection,
MDM/Problems Addressed:
This is a 87 year old female that is brought in by her daughter with c/o redness and bloody drainage form the right groin. States that she was here in May and this was treated with a powder and it went away. Daughter states that she was away
and that there was a different nurse seeing her mom which she was not aware of. State that she feels that they were not checking her groin. State that today she has bloody drainage and redness in the groin. State that patient is very tired and weak
today.
Will get labs, Wound culture and given Doxycycline which patient was to start on BID but had not started. Explained to daughter that she will most likely be admitted.
Chronic conditions affecting care:
Cellulitis,
Acute Exacerbation and/or Progression of Chronic Illness:
Cellulitis,
<MAURICIO Alonzo - Last Filed: 08/24/23 21:30>
*Pulse Oximetry
Patient hypoxic: no
*EKG
Interpreted by ED Provider?: Yes
Interpretation: abnormal
Heart Rate: 38
Rate: bradycardiac
Rhythm: atrial flutter (bradycardia)
QRS Pattern: normal QRS
Ischemia: no ischemia
*Critical Care Note
Total Time (30-74mins, 75-104mins- exclusive of procedures): Not Applicable
ED Attending Note
<MAURICIO Alonzo - Last Filed: 08/24/23 21:30>
-
Portions of this chart may have been created with voice recognition software.� Occasional wrong word or��sound alike� substitutions may have occurred due to the inherent limitations of voice recognition software.
<Altaf Quintero DO - Last Filed: 08/24/23 21:35>
ED Attending Note
Patient seen and examined by attending physician: Yes
I performed the substantive portion of visit, reviewed & personally made and approve the management plan that is documented in note by myself or WANDY.: Yes
ED Attending Note:
Patient brought to the emergency room by her daughter due to lethargy, weakness and the fact visiting nurses noted redness and discharge from the right groin. Patient has had groin cellulitis in the past. Upon arrival here the patient is found to
be hypothermic. She is bradycardic. She is sleepy but does arouse to answer questions. She is complaining of pain in her right groin. She also has other chronic wounds of her lower extremities.
General: Sleeping but arousable. When awake she answers simple questions. Cachectic appearing chronically ill-appearing
Vitals: Hypothermic, bradycardic, adequate mean arterial pressure
Head: Atraumatic
Eyes: Pupils equal, EOMI
Throat: Airway intact, no exudates, dry mucosa
Neck: Trachea midline
Lungs: Clear and equal b/l
Heart: Regular rate, no murmurs
Abd: Soft, Nontender, No pulsatile mass
Neuro: Grossly nonfocal
Skin: Markedly erythematous, moist and pungent area of right groin
Extremities: pulses equal b/l, no edema
Patient presents with significantly abnormal vital signs. Benjamin hugger placed to help with her low core body temperature. IV fluid resuscitation started. 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
can have vancomycin at a slower rate. Her allergy to penicillin occurred when she was young. It is unclear exactly what happened but it sounds like she had some peeling. I do not believe this is a true allergy either. Given that she is
essentially in sepsis and need broad-spectrum antibiotics we will provide Zosyn and Vanco and monitor for any reactions
Discharge Plan
Departure
Patient Disposition: Admit
Date of Disposition: 08/24/23
Time of Disposition: 20:52
Admit to: IMU
Presentation/result/management discussed w/ accepting MD/DO: Hospitalist
Patient with high blood pressure during this ER visit?: No
Condition: Good
Discharge Problem:
Cellulitis of groin, right, Hypothermia, Bradycardia
Prescriptions:
No Action
levothyroxine 50 MCG tablet
50 mcg PO DAILY
Eliquis 2.5 MG tablet
2.5 mg PO BID
pentoxifylline 400 mg tablet extended release
400 mg PO BID
furosemide 20 mg tablet
20 mg PO DAILY
atorvastatin 20 mg Tablet
20 mg PO DAILY
doxycycline monohydrate 50 mg Capsule
50 mg PO DAILY
Patient Comments:
08/24/2023, per daughter, dose increased to one capsule BID but pt. has not started taking this new dose yet.
metoprolol tartrate 25 mg Tablet
12.5 mg PO BID
cholecalciferol (vitamin D3) 50 mcg (2,000 unit) Tablet
50 mcg PO DAILY
Kaopectate liquid
1 dose PO DAILYPRN PRN (Reason: diarrhea)
clotrimazole-betamethasone 1-0.05 % Cream
1 applic TOPICAL DAILYPRN PRN (Reason: apply to right groin)
Patient Comments:
08/24/2023, prescribed BID but pt. takes either once a day or not at all per daughter.
Visbiome 112.5 billion cell Capsule
1 cap PO QPM
gentamicin ointment
1 applic topical .Q4-5 DAYS
Patient Comments:
08/24/2023, per daughter, this med. was picked up at pharmacy today but not in pharmacy fill data or [facility] records.
Referrals:
Weston Robles MD [Active] -
Interventions
Interventions:
*Risk Screen - Suicide Last Done: 08/24/23 18:34
*General Assessment Last Done: 08/24/23 18:34
*Neglect/Abuse Screening Last Done: 08/24/23 18:34
ED-Skin Assessment Last Done: 08/24/23 20:15
Discharge Date and Time
Print Language: GREEK
[2023-08-24 20:34] LABS: % Basophils 0.2 % (0-2); % Eosinophils 0.2 % (0-6); % Immature Granulocytes 0.3 % (0-0.5); % Lymphocytes 4.7 % (20.5-51.1); % Monocytes 3.6 % (1.7-9.3); Absolute Lymphocytes 0.3 10^3/uL (1.2-3.4); Absolute Monocytes 0.2 10^3/uL (0.1-0.6); Absolute Neutrophils 5.2 10^3/uL (1.4-6.5); Hemoglobin 11.7 g/dL (12.0-16.0); Lactic Acid 1.3 mmol/L (0.7-2.0); Mean Corp Hgb Conc. 34.4 g/dL (33.0-37.0); Mean Corpuscular Hgb 32.9 pg (27.0-31.0); Mean Corpuscular Volume 95.5 fL (81.0-99.0); Mean Platelet Volume 12.6 fL (7.4-10.4); Platelet Count 127 10^3/uL (130-400); Red Blood Cell Count 3.56 10^6/uL (4.20-5.40); Red Cell Dist. Width 16.9 % (11.5-14.5); White Blood Cell Count 5.8 10^3/uL (4.8-10.8)
[2023-08-24 20:52] LABS: ALT (SGPT) 144 U/L (0-35); AST (SGOT) 148 U/L (14-36); Alkaline Phosphatase 433 U/L (38-126); Blood Urea Nitrogen 67 mg/dl (7-17); Calcium 9.6 mg/dl (8.4-10.2); Carbon Dioxide 30 mmol/L (22-30); Chloride 102 mmol/L (98-107); Glucose 112 mg/dl (70-99); Potassium 4.1 mmol/L (3.5-5.1); Sodium 139 mmol/L (135-145); Total Bilirubin 0.9 mg/dl (0.2-1.3); Total Protein 5.5 g/dl (6.3-8.2)
[2023-08-24] MEDS: NSS 500 IV (20:53)
[2023-08-24 21:14] LABS: Urine Albumin Trace (Neg - Trace); Urine Bilirubin Negative (Negative); Urine Character Clear (Clear); Urine Color Yellow; Urine Glucose Negative (Negative); Urine Ketone Negative (Negative); Urine Leukocyte Trace (Negative); Urine Nitrite Positive (Negative); Urine Occult Blood Negative (Negative); Urine Specific Gravity 1.015 (<1.030); Urine Urobilinogen Negative (Neg - 1+)
[2023-08-24 21:20] LABS: Urine Bacteria Many (Negative); Urine Red Blood Cell 0-2 /HPF (0-2)
[2023-08-24] MEDS: ZOSYN 50 IV (21:34)
[2023-08-24] MEDS: VANCOCIN 200 IV (21:36)
--- NOTE | 2023-08-24 21:47 | HPS.HSE ---
Addendum entered and electronically signed by Toul Velasquez MD 08/24/23 23:46:
Stress dose steroids not given by ER. Dopamine started for hypotension.
Original Note:
Family Physician
-
Family Physician: Ab Levi
Chief Complaint
-
right groin
History of Present Illness
87-year-old female with past medical history of chronic hypothermia, CKD 2, Baylee intertrigo, pyoderma gangrenosum, normocytic anemia, paroxysmal atrial fibrillation, severe tricuspid regurgitation,, essential hypertension, hypercholesteremia,
hypothyroidism, type 2 diabetes, severe protein calorie malnutrition, right foot melanoma, presenting with right groin infection.
Patient was recently admitted in June and at that time she was treated for Baylee intertrigo in her left groin with powder which cleared up. In the beginning of July she again developed redness and discomfort in her right groin. She was
prescribed antifungal ointment twice a day but questionable compliance. She has a visiting nurse coming once a week but a different nurse was coming in and not checking her groin.
Today she went to change her pants and saw that her right groin is red and malodorous and draining. Today she was very lethargic barely walk on her own. No fevers or chills.
She uses gentamicin ointment on the open wounds of the lower legs. Wounds on the legs are stable. She recently saw a facility rehab director in the past week. Denies any fevers or chills, chest pain, shortness of breath, dizziness, abdominal pain, nausea
vomiting, diarrhea, headache, dizziness or urinary symptoms.
Medical History
Past Medical History
Past Medical History: Reports Other (chronic hypothermia, CKD 2, Baylee intertrigo, pyoderma gangrenosum, normocytic anemia, paroxysmal atrial fibrillation, severe tricuspid regurgitation,, essential hypertension, hypercholesteremia,
hypothyroidism, type 2 diabetes, severe protein calorie malnutrition, right foot melanoma)
Past Surgical History: Reports None
Social History
Tobacco: Non-smoker
Alcohol: None
Drug: None
Family History
Family History: Not pertinent
Allergies / Home Medications
Allergies reflects when Allergies were last updated in [facility].
Home Medications with original date entered in [facility]
Allergy/Medication List:
Allergies
Allergy/AdvReac Type Severity Reaction Status Date / Time
vancomycin Allergy Mild Rash Verified 07/11/23 13:06
Cephalosporins Allergy Unknown Verified 07/11/23 13:06
erythromycin base Allergy HEADACHE Verified 07/11/23 13:06
ethyl chloride Allergy Unknown Verified 07/11/23 13:06
[Ethyl Chloride]
lactose Allergy INTOLERANT Verified 07/11/23 13:06
latex [Latex] Allergy Unknown Verified 07/11/23 13:06
Penicillins Allergy FEET PEEL Verified 07/11/23 13:06
Home Medications
apixaban 2.5 mg tablet (Eliquis) 2.5 mg PO BID Blood clot prevention/tx 09/27/17
levothyroxine 50 mcg tablet 50 mcg PO DAILY Thyroid 09/27/17
furosemide 20 mg tablet 20 mg PO DAILY 06/14/23
pentoxifylline 400 mg tablet,extended release 400 mg PO BID CVA 06/14/23
Kaopectate 1 dose PO DAILYPRN PRN diarrhea 07/11/23
atorvastatin 20 mg tablet 20 mg PO DAILY High Cholesterol 07/11/23
cholecalciferol (vitamin D3) 50 mcg (2,000 unit) tablet 50 mcg PO DAILY Supplement 07/11/23
doxycycline monohydrate 50 mg capsule 50 mg PO DAILY Infection prophylaxis LE wound 07/11/23
metoprolol tartrate 25 mg tablet 12.5 mg PO BID Blood Pressure 07/11/23
Lactobac no.2-Bifidobac no.1-S. thermo 112.5 billion cell capsule (Visbiome) 1 cap PO QPM 08/24/23
clotrimazole-betamethasone 1 %-0.05 % topical cream 1 applic topical DAILYPRN PRN apply to right groin 08/24/23
gentamicin 1 applic topical .Q4-5 DAYS 08/24/23
Review of Systems
-
History Source: Patient
A 12 point ROS was completed and negative except as noted: Yes
Constitutional: Reports No Symptoms
EENT: Reports No Symptoms
Respiratory: Reports No Symptoms
Cardiac: Reports No Symptoms
Abdomen/GI: Reports No Symptoms
: Reports No Symptoms
Musculoskeletal: Reports No Symptoms
Skin: Reports See HPI
Neurological: Reports No Symptoms
Endocrine: Reports No Symptoms
Hematologic/Lymphatic: Reports No Symptoms
Psych: Reports No Symptoms
Physical Exam
Vital Signs
Vital Signs
Temp Pulse Resp BP Pulse Ox
90.7 F L 49 16 94/62 99
08/24/23 20:17 08/24/23 21:30 08/24/23 21:30 08/24/23 21:16 08/24/23 20:19
Physical Exam
General: Well Developed, Well Nourished and No Apparent Distress
HEENT: NormoCephalic, Moist mucous membranes and Atraumatic
Respiratory: Clear
Cardiac: S1/S2 and Regular Rhythm; No Murmur or Rub
GI: Soft, Non Tender, Non Distended and Normal Bowel Sounds; No Organomegaly
Rectal: Deferred by Provider
Musculoskeletal: No Clubbing, No Cyanosis and No Edema
Skin: Other (Foul-smelling erythema of right groin extending to the vagina with some sanguinous/white discharge); No Rash
Neuro: Nonfocal/grossly intact
Laboratory Results
-
08/24/23 20:08
08/24/23 20:08
Laboratory Results
Lactic Acid 1.3 mmol/L (0.7-2.0) 08/24/23 20:08
Total Bilirubin 0.9 mg/dl (0.2-1.3) 08/24/23 20:08
AST 148 U/L (14-36) H 08/24/23 20:08
ALT 144 U/L (0-35) H 08/24/23 20:08
Alkaline Phosphatase 433 U/L (38-126) H 08/24/23 20:08
Data Reviewed
-
Lab Data: Labs Reviewed by me
Old Records: Reviewed
Impression/Plan
-
IMPRESSION:
PLAN:
# Sepsis (hypothermia, hypotension) secondary to right groin bacteria intertrigo extending to vagina/bacterial superinfection of fungal intertrigo
# History of recurrent hypothermia
-IV fluids
-Bear hugger
-Check wound culture
-Check blood cultures
-Vancomycin/Zosyn
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
-ID consulted
# Bradycardia secondary to hypothermia
-EKG shows clear rhythm, heart rate 30s to 40s
-Hold metoprolol
-Asymptomatic
-Treat underlying infection
-Stress dose of hydrocortisone to be given
-Check TSH, a.m. cortisol
# FRANCIS on CKD stage II
-Monitor with IV fluids
-Hold Lasix
# Worsening of chronic transaminitis unclear etiology possibly due to sepsis
-Continue to monitor
# Mild thrombocytopenia secondary to sepsis
-Continue to monitor
Paroxysmal atrial fibrillation
-Continue Eliquis
-Hold metoprolol
Severe tricuspid regurgitation
-Chest x-ray shows small bilateral pleural effusions mild basilar compressive atelectasis, stable cardiomegaly
Essential hypertension
Pyoderma gangrenosum
-On chronic doxycycline, can hold while on IV antibiotics
-Continue gentamicin topical
-Continue pentoxifylline
Chronic venous insufficiency
-Hold Lasix
Normocytic anemia
-Hemoglobin stable at 11.7
Hypercholesterolemia
-Continue statin
Hypothyroidism
-Continue levothyroxine
Type 2 diabetes
-Insulin sliding scale
Severe protein calorie malnutrition
History of right foot melanoma
Full code
DVT prophylaxis�Eliquis
Regular diet
[2023-08-24] MEDS: NSS 1000 IV ×2 (22:10→23:48)
[2023-08-24] MEDS: DOPamine 400 MG 250 IV ×2 (22:18→23:38)
[2023-08-25] VITALS (54 sets, daily range): BP systolic 68–130; BP diastolic 29–89; PULSE 37–91; BMI 17.6
--- NOTE | 2023-08-25 01:22 | W.PN.SEPSIS ---
Sepsis
Vital Signs
Temp Pulse Resp BP Pulse Ox
98.6 F 61 14 111/64 99
08/24/23 23:36 08/24/23 22:45 08/24/23 22:45 08/24/23 22:45 08/24/23 20:19
Physical Exam
Physical Exam:
A focused exam was performed after fluid resuscitation.
Capillary Refill
Bilateral Upper Extremity:
Keira Time: Less than 3 sec
Bilateral Lower Extremity:
Keira Time: Less than 3 sec
Pulse Evaluation
Bilateral Radial:
Pulse Evaluation: Present
Bilateral Dorsalis Pedis:
Pulse Evaluation: Present
[2023-08-25] MEDS: ZOSYN 50 IV ×2 (04:13→10:01)
[2023-08-25] MEDS: NSS 1000 IV ×2 (04:58→20:59)
[2023-08-25 05:21] LABS: % Basophils 0.2 % (0-2); % Eosinophils 0.2 % (0-6); % Immature Granulocytes 0.9 % (0-0.5); % Lymphocytes 3.6 % (20.5-51.1); % Monocytes 6.9 % (1.7-9.3); % Neutrophils 88.2 % (42.2-75.2); Absolute Immature Granulocytes 0.1 10^3/uL (0-0.05); Absolute Lymphocytes 0.3 10^3/uL (1.2-3.4); Absolute Monocytes 0.6 10^3/uL (0.1-0.6); Absolute Neutrophils 7.1 10^3/uL (1.4-6.5); Hematocrit 33.7 % (37.0-47.0); Hemoglobin 11.3 g/dL (12.0-16.0); Mean Corp Hgb Conc. 33.5 g/dL (33.0-37.0); Mean Corpuscular Hgb 31.8 pg (27.0-31.0); Mean Corpuscular Volume 94.9 fL (81.0-99.0); Mean Platelet Volume 13.1 fL (7.4-10.4); Nucleated Red Blood Cells % 3.1 %; Platelet Count 138 10^3/uL (130-400); Red Blood Cell Count 3.55 10^6/uL (4.20-5.40); Red Cell Dist. Width 16.6 % (11.5-14.5); White Blood Cell Count 8.1 10^3/uL (4.8-10.8)
[2023-08-25 05:36] LABS: ALT (SGPT) 132 U/L (0-35); AST (SGOT) 122 U/L (14-36); Albumin 2.8 g/dl (3.5-5.0); Alkaline Phosphatase 434 U/L (38-126); Blood Urea Nitrogen 57 mg/dl (7-17); Calcium 9.1 mg/dl (8.4-10.2); Carbon Dioxide 30 mmol/L (22-30); Chloride 106 mmol/L (98-107); Estimated Creatinine Clearance 24 ml/min; Glucose 110 mg/dl (70-99); Sodium 140 mmol/L (135-145); Total Bilirubin 1.5 mg/dl (0.2-1.3); Total Protein 5.3 g/dl (6.3-8.2); eGFR 43.81
[2023-08-25 05:38] LABS: INR 1.23; PT 15.5 Sec (11.4-14.6)
[2023-08-25 05:39] LABS: APTT 40.9 Sec (23.4-35.0)
[2023-08-25 05:57] LABS: TSH Reflex To Free T4 1.29 uIU/ml (0.47-4.68)
--- NOTE | 2023-08-25 06:30 | PTCARENOTE ---
08/23- received pt from ER, assessments completed and charted, daughter in room at bedside. pt offers no complaints of pain, only slight discomfort in her back which is relieved with repositioning.
patient arrived on dopamine and fluids, BP remains stable,
patient has open wound to R chen, small wound to L chen, (hx of pyoderma gangrenosum) foam to sacrum/spine patient has large inguinal hernia, and large area of MASD to R groin fold, area cleansed with nss and dry 4x4 placed in groin. wills placed
for i/o and and to prevent further masd.
patient tolerated well
patient is lethargic and sleepy, but arrouses with verbal stimulation.
[2023-08-25] MEDS: SYNTHROID 50 MCG PO (07:39)
--- NOTE | 2023-08-25 08:00 | PTCARENOTE ---
recd 0715 handoff at bedside, IV sites maintained, sleepy and falls asleep quickly and easily when undisturbed. skin warm and dry. dressings noted BLE, sacrum, posterior back. groin with small amount wet dressings, WOC consult placed. bulging
over RL abdomen, soft fluid, not tender. tolerating room air. call ybarra given.
--- NOTE | 2023-08-25 08:00 | PTCARENOTE ---
recd pt 0715 handoff at bedside, awakens easily, speech clear, intermittently following commands and interactive, at times, c/o tired and isn't sure about specific details. dopamine continues, see intervention, incont, cleaned. kyphosis noted,
protective foams. bilat leg wraps dressings intact, wound consult placed. groin MASD dressing wet with small amt clear drainage. wills intact, wills care given. not interested in breakfast, did drink some apple juice. call ybarra in reach.
--- NOTE | 2023-08-25 08:27 | CON.INTV ---
Consultation
Consultation Request
Date/Time Consultation Requested: 08/24/[id number]
Date/Time Consultation Performed: 08/25/2023819
Requesting Provider: MAURICIO Ely
Performing Provider: Dr. Faulkner
Reason for Consultation: Groin wound/hypotension/bradycardia
Medical History
-
Chief Complaint: Weakness/right groin wound
History of Present Illness:
87-year-old female with a past medical history of lower extremity pyoderma gangrenosum, CKD, history of hypothermia, tricuspid regurgitation, hypertension, hyperlipidemia, caloric malnutrition and history of-melanoma who presents with weakness and
right groin infection. Per the daughter, the patient has been acting weak lately with difficulty ambulating and it was discovered she has a right groin infection with a red rash that has a foul odor. Patient hypothermic in the ER to 90.7 �F, heart
rate 60, BP 97/54 and saturating 99% on room air. Labs showed creatinine 1.3, BUN 67, ALP 433, Hb 11.7 and platelets 127. Urinalysis was positive for nitrites and trace leukocyte esterase. Antibiotics were given in the ER with vancomycin/Zosyn,
IV fluids were given with total of 1.5 L NS 0.9% and due to bradycardia with HR into 30s and hypotension (SBP in 60s) dopamine was initiated. Patient then transferred to the ICU for further care and critical care services consulted for additional
management/recommendations.
Patient seen this AM. She is on dopamine gtt at 7mcg/kg/min. BP 79/53, HR 77 and SpO2 93% on room air. I spoke to the daughter at bedside and answered all her questions. Per the daughter, she had not been eating well yesterday but prior to that
she was eating normally however she does have a history of not drinking enough fluids. The patient denies having any UTI symptoms, denies burning during urination, urinary discharge, lower abdominal pain, fevers or chills. Patient also denies
chest pain, headache, shortness of breath, back pain.
PMHx: CKD, pyoderma gangrenosum, anemia, paroxysmal A-fib on Eliquis, tricuspid regurgitation, hypertension, hyperlipidemia, hypothyroidism, DM type II, malnutrition, history of right foot melanoma
PSHx: Mole removal from right foot (2005); cervical spine surgery (2001)
Past Medical History
Past Medical History: Other (above as per HPI)
Past Surgical History: Other (above as per HPI)
Social History
Tobacco: Non-smoker
Alcohol: None
Drug: None
Living: With Family
Family History
Family History: Reviewed & Not Pertinent
Allergies / Home Medications
Allergies
Allergy/AdvReac Type Severity Reaction Status Date / Time
Cephalosporins Allergy Unknown Verified 07/11/23 13:06
erythromycin base Allergy HEADACHE Verified 07/11/23 13:06
ethyl chloride Allergy Unknown Verified 07/11/23 13:06
[Ethyl Chloride]
lactose Allergy INTOLERANT Verified 07/11/23 13:06
latex [Latex] Allergy Unknown Verified 07/11/23 13:06
Penicillins Allergy FEET PEEL Verified 07/11/23 13:06
vancomycin Allergy Rash and Verified 08/24/23 23:19
itchiness
Home Medications
�Medication �Instructions �Recorded �Confirmed �Last Taken �Type
apixaban 2.5 mg tablet (Eliquis) 2.5 mg PO BID Blood clot 09/27/17 08/24/23 08/24/23 History
prevention/tx
levothyroxine 50 mcg tablet 50 mcg PO DAILY Thyroid 09/27/17 08/24/23 08/24/23 History
furosemide 20 mg tablet 20 mg PO DAILY 06/14/23 08/24/23 08/24/23 History
pentoxifylline 400 mg 400 mg PO BID CVA 06/14/23 08/24/23 08/24/23 History
tablet,extended release
Kaopectate 1 dose PO DAILYPRN PRN diarrhea 07/11/23 08/24/23 2 Days Ago History
~08/22/23
atorvastatin 20 mg tablet 20 mg PO DAILY High Cholesterol 07/11/23 08/24/23 08/24/23 History
cholecalciferol (vitamin D3) 50 50 mcg PO DAILY Supplement 07/11/23 08/24/23 08/24/23 History
mcg (2,000 unit) tablet
doxycycline monohydrate 50 mg 50 mg PO DAILY Infection 07/11/23 08/24/23 08/24/23 History
capsule prophylaxis LE wound
metoprolol tartrate 25 mg tablet 12.5 mg PO BID Blood Pressure 07/11/23 08/24/23 08/24/23 History
Lactobac no.2-Bifidobac no.1-S. 1 cap PO QPM 08/24/23 08/24/23 08/22/23 History
thermo 112.5 billion cell capsule
(Visbiome)
clotrimazole-betamethasone 1 1 applic topical DAILYPRN PRN 08/24/23 08/24/23 2 Days Ago History
%-0.05 % topical cream apply to right groin ~08/22/23
gentamicin 1 applic topical .Q4-5 DAYS 08/24/23 08/24/23 08/24/23 History
Review of Systems
-
History Source: Patient
All other systems: Negative unless noted (12 point ROS performed and is negative unless mentioned above.)
Vitals / Labs / Diagnostic Testing
Vital Signs
Temp Pulse Resp BP Pulse Ox
98.1 F 87 14 92/66 93
08/25/23 07:47 08/25/23 06:30 08/25/23 06:30 08/25/23 06:04 08/25/23 06:30
Lab Data
08/25/23 05:04
08/25/23 05:04
Laboratory Results
08/25/23
05:04
PT 15.5 H
INR 1.23
APTT 40.9 H
Diagnostic Testing:
Physical Exam
-
HEENT: Normocephalic and Anicteric
Cardiovascular: S1/S2, Irregular Rhythm and Peripheral Edema (+2 lower extremity pitting edema)
Respiratory: Wheeze (Negative), Rales (Negative), Rhonchi (Negative) and Non-Labored Respirations
GI: Soft, Non Distended, Non Tender and Normal Bowel Sounds
Neurology: Awake and Alert
Skin: Warm, Dry, Other (Venous stasis dermatitis with bandages seen in the distal lower extremities bilaterally) and Other (Deformity seen in the left foot where the left great toe is deviated laterally)
General: Respiratory Distress (Negative), Comfortable and Sweats (Negative)
Assessment
-
Assessment: 87-year-old female with a past medical history of lower extremity pyoderma gangrenosum, CKD, history of hypothermia, tricuspid regurgitation, hypertension, hyperlipidemia, caloric malnutrition and history of-melanoma who presents with
weakness and right groin infection. Per the daughter, the patient has been acting weak lately with difficulty ambulating and it was discovered she has a right groin infection with a red rash that has a foul odor. Patient hypothermic in the ER to
90.7 �F, heart rate 60, BP 97/54 and saturating 99% on room air. Labs showed creatinine 1.3, BUN 67, ALP 433, Hb 11.7 and platelets 127. Urinalysis was positive for nitrites and trace leukocyte esterase. Antibiotics were given in the ER with
vancomycin/Zosyn, IV fluids were given with total of 1.5 L NS 0.9% and due to bradycardia with HR into 30s and hypotension (SBP in 60s) dopamine was initiated. Patient then transferred to the ICU for further care and critical care services
consulted for additional management/recommendations.
Chronic medical conditions CHEMICAL PATHOLOGIST:: CKD, pyoderma gangrenosum, anemia, paroxysmal A-fib on Eliquis, tricuspid regurgitation, hypertension, hyperlipidemia, hypothyroidism, DM type II, malnutrition, history of right foot melanoma
Impression:
#Right groin intertriginous dermatitis with suspected Candidiasis
#Positive urinalysis suspicious for UTI
#Shock- suspect sepsis due to above in setting of bradycardia
#Atrial fibrillation with slow ventricular response
#Acute kidney injury - due to shock (baseline Cr 0.9 - 1.1)
#Hypothermia - this is chronic
#Anemia (baseline Hb 11.5-13g/dL)
#Thrombocytopenia - likely due to sepsis
#DM type II (uncontrolled with A1C: 7)
#Hyperbilirubinemia with transaminitis (her LFTs are chronically elevated
Plan:
- Continue ABx as per ID (cefepime + diflucan)
- Continue topical miconazole
- Continue vasopressors with goal MAP>65 and HR>50
- Follow up blood, urine and wound Cx
- IVF hydration x 24 hrs then would stop as to avoid volume overload as she is tolerating PO diet
- Consult cardiology considering pt has a-fib with slow ventricular response - she may need a pacemaker
- Continue wound care
- Benjamin hugger to reach normothermia
- Renally dose all meds/Abx
- trend platelet count and transfuse if needed to keep >20k, and keep Hb>7g/dL
- Trend LFTs
- Maintain SpO2 >90-94%
- Goal BG 140-180mg/dL
- Replete K>3.5, Mg>1.8
- DVT ppx
Critical care statement: A total of 40 minutes of critical care time was provided for this patient today. This includes management of unstable vital signs, evaluation of the patient at bedside, reviewing the patient's pertinent medical records
including radiographs, microbiology, laboratory evaluations, and discussion with primary team, consultants, pharmacy, nutrition, physical therapy, case management, charge nurse, critical care nursing, and respiratory therapy.
Data:
CXR 08-24-2023: No active cardiopulmonary disease.
[2023-08-25] MEDS: ELIQUIS 2.5 MG PO ×2 (08:33→21:00)
[2023-08-25] MEDS: VITAMIN D3 (cholecalciferol) 50 MCG PO (08:33)
[2023-08-25] MEDS: NOVOLOG FLEXPEN-LOW RESISTANCE SC ×2 (08:33→12:03)
[2023-08-25] MEDS: LIPITOR 20 MG PO (08:33)
[2023-08-25] MEDS: TRENTAL 400 MG PO ×2 (08:33→21:01)
--- NOTE | 2023-08-25 09:36 | CON.ID ---
Consultation
-
Date/Time Consultation Requested: 08/24/2023, 2315
Date/Time Consultation Performed: 08/25/2023, 0940
Requesting Provider: Dr. Andrea Urban
Performing Provider: Dr. Cele Berumen
Reason for Consultation: Intertrigo
Chief Complaint / Past History
Chief Complaint
Red groin
History of Present Illness
87 year old female with DM2, pAfib, venous insufficiency, pyoderma gangrenosum on chronic doxycycline who presented to the hospital 08/24/23 with worsening right groin erythema. She noted malodor drainage and therefore she came to hospital. Pt noted
to be bradycardic, hypotensive, and hypothermic. Has significant right groin yeast infection extending to genital area. She is currently on dopamine, vancomycin, and zosyn. Pt is very poor historian. She reports right groin discomfort. No fever or
chills. Positive malaise and weakness. She sees quantitative equity head for pyoderma gangrenosum.
Past History
Additional Past Medical History:
DM2
HTN
HLD
pafib
severe TR
hypothyroidism
hypothermia
Lymphedema
venous insufficiency
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
right foot melanoma
severe protein-calorie malnutrition
Allergy History:
Cephalosporins Allergy (Verified 07/11/23 13:06)
Unknown
erythromycin base Allergy (Verified 07/11/23 13:06)
HEADACHE
ethyl chloride [Ethyl Chloride] Allergy (Verified 07/11/23 13:06)
Unknown
lactose Allergy (Verified 07/11/23 13:06)
INTOLERANT
latex [Latex] Allergy (Verified 07/11/23 13:06)
Unknown
Penicillins Allergy (Verified 07/11/23 13:06)
FEET PEEL
vancomycin Allergy (Verified 08/24/23 23:19)
Rash and itchiness
Medications Reviewed: Yes
Current Antibiotics:
Vancomycin
Zosyn
Social History
Tobacco: Non-Smoker
Drug: None
Living: Alone
Family History
Family History: Not Pertinent
Review of Systems
Review of Systems
General: Change in Appetite; Negative Fever or Chills
HEENT: Negative Headache or Pharyngitis
Cardiovascular: Negative Chest Pain
Respiratory: Negative Dyspnea or Cough
Gasteroenterology: Negative Nausea or Vomiting
Genital / Urological: Negative Dysuria or Flank Pain
Neurological: Negative Headache or Dizziness
All systems: All other systems were reviewed and were negative
Vital Signs
Temp Pulse Resp BP Pulse Ox
98.1 F 92 20 113/62 94
08/25/23 07:47 08/25/23 08:45 08/25/23 08:45 08/25/23 08:00 08/25/23 08:45
Physical Exam
Physical Exam
Constitutional: Acutely Ill
Eyes: No Conjunctival Hemorrhage and Sclera Anicteric
Cardiovascular: Regular Rate and S1/S2
Pulmonary: Clear
Gastrointestinal: Soft and Non Tender
Genito-Urinary: Negative CVA Tenderness
Skin: Other (right ground erythema with dark border, erythema extends to inner thighs, perineum and buttocks. Pustule over left suprapubic. LLE large wound with pale tissue, no surrounding erythema. 2 seborrheic keratosis like lesions right
groin.)
Wound: Other
Neurological: Other (lethargic)
Lab / Diagnostic Study Results
08/25/23 05:04
08/25/23 05:04
Abs Immat Gran (auto) 0.1 10^3/uL (0-0.05) H 08/25/23 05:04
Absolute Neuts (auto) 7.1 10^3/uL (1.4-6.5) H 08/25/23 05:04
Absolute Lymphs (auto) 0.3 10^3/uL (1.2-3.4) L 08/25/23 05:04
Absolute Monos (auto) 0.6 10^3/uL (0.1-0.6) 08/25/23 05:04
Absolute Basos (auto) 0.0 10^3/uL (0-0.2) 08/25/23 05:04
Immature Gran % 0.9 % (0-0.5) H 08/25/23 05:04
Neutrophils % 88.2 % (42.2-75.2) H 08/25/23 05:04
Lymphocytes % 3.6 % (20.5-51.1) L 08/25/23 05:04
Monocytes % 6.9 % (1.7-9.3) 08/25/23 05:04
Eosinophils % 0.2 % (0-6) 08/25/23 05:04
Basophils % 0.2 % (0-2) 08/25/23 05:04
PT 15.5 Sec (11.4-14.6) H 08/25/23 05:04
INR 1.23 08/25/23 05:04
Lactic Acid 1.3 mmol/L (0.7-2.0) 08/24/23 20:08
Microbiology Results
Micro:
08/24/23 20:08 Blood Culture - Pending
Blood/Venous
08/24/23 21:08 Urine Culture - Pending
Urine
08/24/23 20:08 Wound Culture - Pending
Groin - Right Gram Stain - Pending
08/24/23 20:08 Blood Culture - Pending
Blood/Venous
08/24/23 CXR: No active cardiopulmonary disease.
Assessment / Plan
# Perineum/inguinal candidiasis
- Start fluconazole 100 mg po qd.
# Hypotension
# Hypothermia
-Await blood cx's results.
- CXR neg.
- Narrow Vanco/Zosyn to cefepime for now.
- Follow vitals.
# RLE pyoderma gangrenosum
- no sign of infection
--- NOTE | 2023-08-25 09:46 | PHA.VAN.IN ---
Assessment
- Assessment
Renal Function: Appears elevated from baseline (SCR 1.2 vs 0.9 in Jun 2023)
Concomitant Antimicrobials: piperacillin/tazobactam
Plan
- Plan
Initial / Loading Dose: 1000mg - 08/23 21:36
Maintenance Regimen: dosing by level - give addition 500mg
Monitorin/29 06
Based on prior history of infusion reaction, consider administered vancomycin over 10mg/min or slower
500mg over 60 min is less than 10 mg/min - will keep standard infusion time of 500mg for now
Pharmacokinetics Vancomycin I
- -
Patient Age: 87
Patient Sex: Female
Vancomycin Day #: 1
Indication: Skin And Soft Tissue
Requesting Provider: Dr. Velasquez
Pertinent Antimicrobial Allergies:
penicillins - feet peel
cephalosporins - unknown
erythromycin - headache
vancomycin - rash, itchiness
Height / Weight:
Height 5 ft 3 in
Actual Weight 45.1 kg
IBW in k.4
Pertinent Past Medical History: BMI ~17.6, Vancomycin infusion reaction, CKD, Pyoderma gangrenosum, DM 2
- Vital Signs / Lab Results
Temp Pulse Resp BP Pulse Ox
98.1 F 92 20 113/62 94
08/25/23 07:47 08/25/23 08:45 08/25/23 08:45 08/25/23 08:00 08/25/23 08:45
Lab Results - Hematology
08/24/23 08/25/23
20:08 05:04
WBC 5.8 8.1
Lab Results - Chemistry
08/24/23 08/25/23
20:08 05:04
BUN 67 H 57 H
Creatinine 1.3 H 1.2 H
Estimated Creat Clear 24
Albumin 3.0 L 2.8 L
08/24/23
20:08
Lactic Acid 1.3
Lab Results - Urine
08/24/23
21:08
Urine Nitrite (Reflex) Positive A
Leukocyte Esterase Rfl Trace A
Urine WBC (Reflex) 6-10
Urine Bacteria (Reflex) Many A
--- NOTE | 2023-08-25 10:11 | WOUNDNOTE ---
WON RN note: Patient admitted with sepsis UTI. Recent admission
See H&P for complete history.Patient lives with her daughter who does wound care with compression and is followed monthly by Dr. Fuentes.
PMH: pyoderma gangrenosum ulcer RLE, venous ulcers LLE, a fib (Eliquis), CKD, HTN, R foot melanoma removal, NIDDM, vein ablation.
Wound Location and type/assessment: Patient known to service, last seen 06/16/23. Admitted with: Healing Full thickness RLE wound to subcutaneous layer r/t venous insufficiency and hx of Pyoderma. L lateral leg with healing venous stasis ulcers.
Spoke to RN who reported that night custodian removed fungal appearing discharge from right groin. Bilateral groin with ecchymosis and fungal appearing skin. Perineum with MASD and ecchymosis. Stage 1 sacrum and bilateral heels.
Appetite: Per chart review patient has protein calorie malnutrition.
Pressure redistribution devices in place: Centrella Max Air, turning schedule, heels off bed with pillow.
Plan: L leg dressing changed using Xeroform and silicone foam. R leg wound Xeroform, alginate, and silicone foam. Will order Desenex for fungal appearing skin in groin, Calazime applied to perineum.
Will confirm orders with hospitalist and discussed with BRE Gonzalez.
Care plan to be updated and will follow as needed.
[2023-08-25] MEDS: NSS 500 IV (10:45)
[2023-08-25] MEDS: DESENEX/MITRAZOL/ZEASORB 1 APPLIC TOPICAL ×2 (11:50→21:01)
--- NOTE | 2023-08-25 11:52 | WOUNDNOTE ---
SACRUM and PERINEUM
[2023-08-25 12:15] LABS: Glucose - Point of Care 102 mg/dl (70-99)
[2023-08-25] MEDS: VANCOCIN HCL 500 MG 100 IV (12:37)
--- NOTE | 2023-08-25 12:52 | PTCARENOTE ---
family visiting, eating lunch, VS noted, getting vanco dose, dopamine remains as noted.
[2023-08-25] MEDS: LEVOPHED 250 IV (14:06)
--- NOTE | 2023-08-25 14:15 | PTCARENOTE ---
eating lunch, feeding self slowly, transitioned off dopa to levophed per orders. on bedpan now, incont small soft brown again, call ybarra in reach, family bedside.
--- NOTE | 2023-08-25 14:40 | CM ---
CM following re: discharge planning.
Discussed in Rounds, reviewed pt's chart, met with pt. Pt's daughter Lisa and son in law Rogers at bedside.
Pt is an 87 year old female, admitted with primary dx of Right groin intertrigo. Positive urinalysis suspicious for UTI
Pt reports she lives alone in a 2SH, 4 steps to enter, has 3 supportive children. Daughter Lisa lives locally and helps daily. Pt reports she ambulates with a walker, active with [facility] for weekly wound care. Pt's daughter stated she is aware that
her mother needs help at home and she is working with [facility] to arrange caregiver services. Per daughter request, CM provided her with a list of caregiver services in case [facility] will not have availability. Pt's daughter stated
that pt was at [facility] in May of this year and pt did not have a good experience and also, per daughter pt does not like institutionalized environment. Per daughter, [facility] was a preferred SNF but they did not have a bed available. Per
daughter, if SNF level of care will be recommended she will prefer [facility].
CM spoke to [facility] clinical director Briana and she brought her concerns regarding pt living alone and not having caregiver services. Per Briana, caregiver services are strongly recommended.
PT and OT will evaluate the pt to determine a level of care at discharge.
PCP: Ab Mclaughlin
Pharmacy: [facility]
D/C plan: SNF vs home with [facility] and caregivers services.
CM will follow with discharge plan updates as hospitalization progresses
[2023-08-25] MEDS: DIFLUCAN 100 MG PO (14:50)
--- NOTE | 2023-08-25 15:45 | PTCARENOTE ---
see intervention for timing and strips mounted on chart. transitioned from dopamine to norepinephrine, BP noted, increased norepi. became quite bradycardic, tolerated other than for BP, no c/o dizziness. Dr. Faulkner notified, transitioned back
to dopamine, presently at 6 mcg/kg/min, HR much more robust in 50s and 60s. Titrating to achieve BP goal per order. Did have some IVCD configuration shortly into the transition, back to afib (baseline) with narrow QRS.
[2023-08-25 17:23] LABS: Glucose - Point of Care 156 mg/dl (70-99)
[2023-08-25] MEDS: MAXIPIME 2000 MG IV (17:44)
[2023-08-25] MEDS: VISBIOME PO ×2 (17:44→17:47)
[2023-08-25] MEDS: STERILE WATER FOR INJECTION 10 ML IV (17:44)
[2023-08-25] MEDS: NOVOLOG FLEXPEN-LOW RESISTANCE 1 UNITS SC (18:13)
--- NOTE | 2023-08-25 18:21 | W.PN.HOSP.TC ---
Today's Communication/Plan
-
Continue antibiotics and antifungal
Wean vasopressors as tolerated
Please see below
Assessment / Plan
Assessment / Plan
Physical Exam
General: Well Developed, Well Nourished and No Apparent Distress
HEENT: Normocephalic, Moist mucous membranes and Atraumatic
Respiratory: Clear
Cardiac: S1/S2 and Irregular Rhythm
GI: Soft, Non Tender, Non Distended and Normal Bowel Sounds
Musculoskeletal: No Cyanosis and No Edema
Skin: Venous stasis dermatitis changes in the lower extremities.
Neuro: Nonfocal/grossly intact
Assessment/Plan
# Sepsis (hypothermia, hypotension) secondary to right groin bacteria intertrigo extending to vagina/bacterial superinfection of fungal intertrigo with possible Candidiasis
# Concern or UTI
# Chronic hypothermia
# Concern for Septic Shock
-IV fluids
-Benjamin justin
-Follow wound culture
-Follow blood and urine cultures
-Continue Cefepime and Diflucan
-Continue topical Miconazole
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
-ID consulted
-Wean vasopressors as tolerated
# Bradycardia secondary to hypothermia
-EKG shows clear rhythm, heart rate 30s to 40s
-Hold metoprolol
-Asymptomatic
-Treat underlying infection
-Stress dose of hydrocortisone to be given
-TSH normal, a.m. cortisol elevated
# FRANCIS - secondary to shock - on CKD stage II
-Monitor with IV fluids -- patient is tolerating diet so can stop IV fluids soon
-Hold Lasix
# Worsening of chronic transaminitis unclear etiology possibly due to sepsis
-Continue to monitor
# Anemia
# Mild thrombocytopenia secondary to sepsis
-Continue to monitor
Paroxysmal atrial fibrillation with slow ventricular response
-Continue Eliquis
-Hold metoprolol
-Cardiology to be consulted, recommendations appreciated
Severe tricuspid regurgitation
-Chest x-ray shows small bilateral pleural effusions mild basilar compressive atelectasis, stable cardiomegaly
Essential hypertension
Pyoderma gangrenosum
-On chronic doxycycline, can hold while on IV antibiotics
-Continue gentamicin topical
-Continue pentoxifylline
Chronic venous insufficiency
-Hold Lasix
Normocytic anemia
-Hemoglobin stable at 11.7
Hypercholesterolemia
-Continue statin
Hypothyroidism
-Continue levothyroxine
Type 2 diabetes
-Insulin sliding scale
Severe protein calorie malnutrition
History of right foot melanoma
Full code
DVT prophylaxis�Eliquis
Regular diet
Hypotension and shock with concern for septic shock is a high risk encounter.
Anticipated Discharge: > 48 hours
Subjective/Interval History
-
Date of Service: August 25, 2023
Patient was seen and examined. No chest pain or shortness of breath reported.
Objective Data
-
Vital Signs:
Vital Signs
Temp Pulse Resp BP Pulse Ox
96.8 F L 77 16 101/58 95
08/25/23 18:20 08/25/23 18:15 08/25/23 18:15 08/25/23 18:15 08/25/23 18:15
I&O
08/24/23 08/25/23 08/26/23
06:59 06:59 06:59
Intake Total 809.5 / 918.0 2353.0 / 2353.0
Output Total 600 / 600 475 / 475
Balance 209.5 / 318.0 1878.0 / 1878.0
--- NOTE | 2023-08-25 18:29 | PTCARENOTE ---
dopamine remains 4 mcg/kg/min, presently eating dinner, much more awake, took some stimuli to get her up. Feeding self.
--- NOTE | 2023-08-25 20:00 | PTCARENOTE ---
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 AFib HR 60-70s, IV x 3 WNL- dopamine gtt infusing per work list. RA Sat 98%. Irwin draining cloudy yellow urine. call tate w/pt, dtr at bedside.
[2023-08-26] VITALS (51 sets, daily range): BP systolic 81–124; BP diastolic 41–100; PULSE 110; O2SAT 95; BMI 18.6
[2023-08-26] MEDS: NSS 1000 IV (05:58)
[2023-08-26] MEDS: DOPamine 400 MG 250 IV (05:58)
--- NOTE | 2023-08-26 06:00 | PTCARENOTE ---
no changes in pt assessment.
[2023-08-26 06:20] LABS: % Basophils 0.3 % (0-2); % Eosinophils 0.3 % (0-6); % Immature Granulocytes 0.6 % (0-0.5); % Lymphocytes 12.6 % (20.5-51.1); % Neutrophils 80.2 % (42.2-75.2); Absolute Lymphocytes 0.8 10^3/uL (1.2-3.4); Absolute Monocytes 0.4 10^3/uL (0.1-0.6); Absolute Neutrophils 5.2 10^3/uL (1.4-6.5); Hematocrit 32.1 % (37.0-47.0); Mean Corp Hgb Conc. 34.3 g/dL (33.0-37.0); Mean Corpuscular Hgb 32.8 pg (27.0-31.0); Mean Corpuscular Volume 95.8 fL (81.0-99.0); Mean Platelet Volume 12.9 fL (7.4-10.4); Nucleated Red Blood Cells % 1.4 %; Platelet Count 128 10^3/uL (130-400); Red Blood Cell Count 3.35 10^6/uL (4.20-5.40); Red Cell Dist. Width 17.4 % (11.5-14.5); White Blood Cell Count 6.5 10^3/uL (4.8-10.8)
[2023-08-26 06:48] LABS: ALT (SGPT) 102 U/L (0-35); AST (SGOT) 100 U/L (14-36); Albumin 2.5 g/dl (3.5-5.0); Alkaline Phosphatase 374 U/L (38-126); Blood Urea Nitrogen 42 mg/dl (7-17); Calcium 8.4 mg/dl (8.4-10.2); Carbon Dioxide 26 mmol/L (22-30); Chloride 113 mmol/L (98-107); Estimated Creatinine Clearance 25 ml/min; Glucose 95 mg/dl (70-99); Phosphorus 2.7 mg/dl (2.5-4.5); Potassium 3.9 mmol/L (3.5-5.1); Sodium 140 mmol/L (135-145); Total Bilirubin 1.1 mg/dl (0.2-1.3); Total Protein 4.9 g/dl (6.3-8.2); eGFR 43.81
--- NOTE | 2023-08-26 07:36 | CON.CAR ---
Addendum entered and electronically signed by Da Temple MD 08/26/23 12:33:
I saw and examined the patient.
The Adjuster And Inspector's note was reviewed and I agree with the note.
Comment:
GEN: No distress, awake, Ox3
HEENT: supple, anicteric, mmm
LUNGS: CTA, no wheezes/rales
CV: Irreg, S1/S2, 1/6 syst LSB, no gallop
ABD: soft, BS+, NT/ND
EXT: No edema
NEURO: Gross non-focal
SKIN: R groin erythema
Plan:
She has a past medical history of permanent atrial fibrillation, hypertension, hyperlipidemia, chronic heart failure with preserved ejection fraction and severe tricuspid regurgitation. She presented to outside hospital with a right groin
infection. We were asked to see her regarding pauses of 2 to 3 seconds. Upon arrival she was hypothermic with temperatures around 90 �F. She was treated with antibiotics and her Lopressor was held. She was then placed on dopamine for blood
pressure support.
I reviewed her telemetry and currently her heart rates are improved on dopamine. Would wean off pressors as blood pressure allows. Continue to hold Lopressor for now.
Will likely restart Lopressor in AM. We may need to except some occasional 2 to 2.5-second pauses. At this point there is no clear indication for pacemaker placement.
Continue cefepime.
Continue Eliquis. Hemoglobin stable at 11
Original Note:
Consultation
Consultation Request
Date/Time Consultation Performed: 08/26/23
Requesting Provider: Dr. Faulkner
Performing Provider: Nusrat Adair PA-C for Dr. Temple
Reason for Consultation: bradycardia
Medical History
-
Chief Complaint: R groin infection
History of Present Illness:
Patient is an 87-year-old female with past medical history of persistent atrial fibrillation/flutter on chronic Eliquis therapy, hypertension, hyperlipidemia, secondary pulmonary hypertension, chronic diastolic congestive heart failure, mitral
regurgitation, peripheral vascular disease, bilateral lower extremity wounds who presented to [facility] for evaluation of right groin infection. Reportedly her right groin was erythematous and bloody. Patient was also noted to be
lethargic and weak. On arrival to ER was noted to be hypothermic with temperature of 90 �F. Patient was placed on Benjamin hugger with improvement. In setting of this patient was bradycardic in aflutter, and has improved with holding OP lopressor and
improvement in temperature. Cardiology consulted for evaluation.
PMH:
Persistent atrial fibrillation/flutter
Chronic Eliquis therapy
chronic diastolic congestive heart failure
Mitral regurgitation
Hypertension
Hyperlipidemia
Hypothyroidism
DM2
CKD
Secondary pulmonary hypertension
Peripheral vascular disease/chronic venous insufficiency
Bilateral lower extremity wounds
Past Medical History
Past Medical History: Other (in HPI)
Social History
Tobacco: Non-Smoker
Alcohol: None
Living: Alone
Employment: Retired
Allergies / Home Medications
Allergy/AdvReac Type Severity Reaction Status Date / Time
erythromycin base Allergy HEADACHE Verified 07/11/23 13:06
ethyl chloride Allergy Unknown Verified 07/11/23 13:06
[Ethyl Chloride]
lactose Allergy INTOLERANT Verified 07/11/23 13:06
latex [Latex] Allergy Unknown Verified 07/11/23 13:06
Penicillins Allergy FEET PEEL Verified 08/25/23 11:09
or rash;
Tolerates
amoxicillin
and
piperacillin
vancomycin Allergy Rash and Verified 08/24/23 23:19
itchiness
�Medication �Instructions �Recorded �Confirmed �Type
apixaban 2.5 mg tablet (Eliquis) 2.5 mg PO BID Blood clot 09/27/17 08/24/23 History
prevention/tx
levothyroxine 50 mcg tablet 50 mcg PO DAILY Thyroid 09/27/17 08/24/23 History
furosemide 20 mg tablet 20 mg PO DAILY Fluid 06/14/23 08/24/23 History
Retention/Swelling
pentoxifylline 400 mg 400 mg PO BID CVA 06/14/23 08/24/23 History
tablet,extended release
Kaopectate 1 dose PO DAILYPRN PRN diarrhea 07/11/23 08/24/23 History
atorvastatin 20 mg tablet 20 mg PO DAILY High Cholesterol 07/11/23 08/24/23 History
cholecalciferol (vitamin D3) 50 50 mcg PO DAILY Supplement 07/11/23 08/24/23 History
mcg (2,000 unit) tablet
doxycycline monohydrate 50 mg 50 mg PO DAILY Infection 07/11/23 08/24/23 History
capsule prophylaxis LE wound
metoprolol tartrate 25 mg tablet 12.5 mg PO BID Blood Pressure 07/11/23 08/24/23 History
Lactobac no.2-Bifidobac no.1-S. 1 cap PO QPM Gastrointestinal Issue 08/24/23 08/24/23 History
thermo 112.5 billion cell capsule
(Visbiome)
clotrimazole-betamethasone 1 1 applic topical DAILYPRN PRN 08/24/23 08/24/23 History
%-0.05 % topical cream apply to right groin
gentamicin 1 applic topical .Q4-5 DAYS Skin 08/24/23 08/24/23 History
Issues
Review of Systems
-
History Source: Patient
All other systems: Negative unless noted
Physical Exam
Vital Signs
Temp Pulse Resp BP Pulse Ox
97.6 F 90 19 115/64 94
08/26/23 03:09 08/26/23 06:30 08/26/23 06:30 08/26/23 06:30 08/26/23 06:30
Lab Results
08/26/23 05:54
08/26/23 05:54
Physical Exam
General: No Apparent Distress, Comfortable and Other (frail elderly female)
HEENT: Normocephalic, Anicteric and Moist Mucous Membranes
Respiratory: Clear and Non Labored Respirations
Cardiac: S1/S2, Irregular Rhythm and Murmur
GI: Soft, Non Tender, Non Distended and Normal Bowel Sounds
Musculoskeletal: No Clubbing, No Cyanosis and Edema (trace edema of B/L LE)
Skin: Warm, Dry and Other (B/L LE dressings c/d/i)
Neuro: Other (lethargic. oriented to self, place)
Impression / Plan
-
Primary Laboratory Sampler: Dr. Jeanie Rollins
Assessment:
Presentation with R groin infection
Sepsis
Hypothermia
Bradycardia secondary to above, improved
Frequent PVCs at times in pattern of bigeminy
FRANCIS on CKD
Acute on chronic transaminitis
mild thrombocytopenia
Persistent atrial fibrillation/flutter
Chronic Eliquis therapy
chronic diastolic congestive heart failure
Mitral regurgitation
Hypertension
Hyperlipidemia
Hypothyroidism
DM2
CKD
Secondary pulmonary hypertension
Peripheral vascular disease/chronic venous insufficiency
Bilateral lower extremity wounds
Pyoderma gangrenosum, on chronic doxycycline
ECHO 04/26/2023: EF 60 to 65%, mild LVH, small LV, MAC, mild MR, dilated left atrium, aortic sclerosis, dilated right atrium, severe TR, PAP 25 to 30 mmHg
Plan:
-Patient presents with sepsis in the setting of right groin infection. She was hypothermic on arrival, and bradycardic in A-fib as a result of this with 2 to 3-second pauses. This is improved with normalization of her temperature and with addition
of dopamine.
-Currently in A-fib with controlled rates and PVCs, at times in pattern of bigeminy. Follow electrolytes, stable 08/25.
-weaning dopamine to off
-OP lopressor on hold at present. resume low dose as BP allows
-continue eliquis 2.5mg BID
-TSH WNL
-Recent echo with results as above, would not repeat at this time.
-Continue treatment of right groin wound/infection as well as bilateral lower extremity wounds
-d/w nursing
Data Reviewed
-
EKG: Tracing Personally Visualized and interpreted
Medical Tests (Nuc Med, Echo etc): Report Reviewed by me
Labs: Labs Reviewed by me
Old Records: Reviewed
[2023-08-26 07:39] LABS: Glucose - Point of Care 88 mg/dl (70-99)
[2023-08-26] MEDS: VITAMIN D3 (cholecalciferol) 50 MCG PO (08:15)
[2023-08-26] MEDS: SYNTHROID 50 MCG PO (08:15)
[2023-08-26] MEDS: ELIQUIS 2.5 MG PO ×2 (08:15→20:01)
[2023-08-26] MEDS: TRENTAL 400 MG PO ×2 (08:15→20:01)
[2023-08-26] MEDS: NOVOLOG FLEXPEN-LOW RESISTANCE SC ×3 (08:16→17:08)
[2023-08-26] MEDS: DESENEX/MITRAZOL/ZEASORB 1 APPLIC TOPICAL ×2 (08:17→20:01)
[2023-08-26] MEDS: LIPITOR 20 MG PO (08:19)
--- NOTE | 2023-08-26 08:24 | PTCARENOTE ---
0700 patient received in bed. AAO x3 forgetful; slow sometimes unclear speech. BP via left upper arm 107/55 Abib 99 PVC-F. RA 95% RR 15. core temp 97.1. Indwelling Irwin Care done per hospital protocol. Draining clear yellow urine. Dopamine at 4mcg
and NSS RT FA 100/hr via RT FA lower . left FA peripheral line capped flushed HOB elevated pt repositioned B/l LE elevated in a pillows
--- NOTE | 2023-08-26 08:50 | W.PN.INTV ---
Today's Communication / Plan
Recommendations
Continue dopamine and wean as tolerated
Cardiology consulted and recs appreciated
Continue with broad-spectrum antibiotics
Follow-up species of urine culture and sensitivities of wound culture
Encourage incentive spirometer/up OOB as tolerated/PT OT
Assessment
-
Assessment: 87-year-old female with a past medical history of lower extremity pyoderma gangrenosum, CKD, history of hypothermia, tricuspid regurgitation, hypertension, hyperlipidemia, caloric malnutrition and history of-melanoma who presents with
weakness and right groin infection. Per the daughter, the patient has been acting weak lately with difficulty ambulating and it was discovered she has a right groin infection with a red rash that has a foul odor. Patient hypothermic in the ER to
90.7 �F, heart rate 60, BP 97/54 and saturating 99% on room air. Labs showed creatinine 1.3, BUN 67, ALP 433, Hb 11.7 and platelets 127. Urinalysis was positive for nitrites and trace leukocyte esterase. Antibiotics were given in the ER with
vancomycin/Zosyn, IV fluids were given with total of 1.5 L NS 0.9% and due to bradycardia with HR into 30s and hypotension (SBP in 60s) dopamine was initiated. Patient then transferred to the ICU for further care and critical care services
consulted for additional management/recommendations.
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
Impression:
#Right groin intertriginous dermatitis with suspected Candidiasis and superinfection with Klebsiella pneumoniae/Diptheroids
#Positive urinalysis suspicious for UTI (UCx growing GNR)
#Shock- suspect sepsis due to above in setting of bradycardia
#Atrial fibrillation with slow ventricular response
#Acute kidney injury - due to shock (baseline Cr 0.9 - 1.1)
#Hypothermia - this is chronic
#Anemia (baseline Hb 11.5-13g/dL)
#Thrombocytopenia - likely due to sepsis
#DM type II (uncontrolled with A1C: 7)
#Hyperbilirubinemia with transaminitis (her LFTs are chronically elevated
Plan:
- Continue ABx as per ID (cefepime + diflucan)
- Continue topical miconazole
- Continue vasopressors with goal MAP>65 and HR>50
- Follow up blood, urine (species/sensitivities) and wound Cx (sensitivities)
- IVF hydration x 24 hrs then would stop as to avoid volume overload as she is tolerating PO diet
- Cardiology consulted considering pt has a-fib with slow ventricular response - she may need a pacemaker
- Continue wound care
- Continue to maintain normothermia
- Renally dose all meds/Abx
- trend platelet count and transfuse if needed to keep >20k, and keep Hb>7g/dL
- Trend LFTs
- Maintain SpO2 >90-94%
- Goal BG 140-180mg/dL
- Replete K>3.5, Mg>1.8
- DVT ppx
Critical care statement: A total of 42 minutes of critical care time was provided for this patient today. This includes management of unstable vital signs, evaluation of the patient at bedside, reviewing the patient's pertinent medical records
including radiographs, microbiology, laboratory evaluations, and discussion with primary team, consultants, pharmacy, nutrition, physical therapy, case management, charge nurse, critical care nursing, and respiratory therapy.
Data:
CXR 08-24-2023: No active cardiopulmonary disease.
Subjective Dataa
Subjective Data
Date of Service:
Date of Service: August 26, 2023
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
Subjective:
Pt seen this AM. Remains on dopamine at 4mcg/kgmin and NS at 100mL/hr. HR 76, BP 104/52, on room air saturating 95%. She has no complaints. Daughter at bedside, and I answered all of her questions.
Review of Systems
General: Other (Negative unless mentioned above)
Objective Data
Data Reviewed
Vital Signs / I&O / Oxygen:
Vital Signs
Temp Pulse Resp BP Pulse Ox
97.4 F 102 15 104/52 95
08/26/23 07:56 08/26/23 09:00 08/26/23 09:00 08/26/23 09:00 08/26/23 09:00
Intake and Output
08/25/23 08/26/23 08/27/23
06:59 06:59 06:59
Intake Total 809.5 / 918.0 3634.6 / 3741.4 320.4 / 320.4
Output Total 600 / 600 900 / 930 120 / 120
Balance 209.5 / 318.0 2734.6 / 2811.4 200.4 / 200.4
SaO2 95
Physical Exam
General: Respiratory Distress (negative) and Comfortable
HEENT: Normocephalic and Anicteric
Cardiovascular: S1-S2 and Peripheral Edema (+1 lower extremity pitting edema)
Respiratory: Wheeze (negative), Crackles (Bibasilar), Rhonchi (negative) and Non-Labored Respirations
GI: Soft, Non Distended and Non Tender
Neurology: Awake and Alert
Skin: Warm, Dry and Other (Bandages on bilateral lower extremities)
Labs/Micro/Reports
Lab Data
08/26/23 05:54
08/26/23 05:54
Microbiology
08/24/23 20:08 Groin - Right Wound Culture - Preliminary
Klebsiella pneumoniae
Diptheroids
08/24/23 20:08 Groin - Right Gram Stain - Preliminary
08/24/23 20:08 Blood/Venous Blood Culture - Preliminary
No Growth in 24 hours- Final report to follow
08/24/23 20:08 Blood/Venous Blood Culture - Preliminary
No Growth in 24 hours- Final report to follow
[2023-08-26] MEDS: DIFLUCAN 100 MG PO (08:53)
--- NOTE | 2023-08-26 11:18 | PTCARENOTE ---
out of bed with PT/OT. able to site at the edge of bed, able to stand up and take a few steps with walker . Refused to OO chair. Afib 77; PVC-F ; BP via left upper arm 122/65 MAp 80 RR 12. POX 97% RA. Speech remain slow and soft. Planing to titrate
Dopamine per protocol . At this time dopamin 3mcg/5.1 ml . Oral temp 97.0. call ybarra with reach
[2023-08-26 11:52] LABS: Glucose - Point of Care 110 mg/dl (70-99)
--- NOTE | 2023-08-26 12:04 | W.PN.HOSP.TC ---
Today's Communication/Plan
-
Wean Dopamine as tolerated
Continue antibiotic and antifungal
Hold Lopressor
Assessment / Plan
Assessment / Plan
Physical Exam
General: Well Developed, Well Nourished and No Apparent Distress
HEENT: Normocephalic, Moist mucous membranes and Atraumatic
Respiratory: Clear to Auscultation Bilaterally
Cardiac: S1/S2 and Irregular Rhythm
GI: Soft, Non Tender, Non Distended and Normal Bowel Sounds
Musculoskeletal: No Cyanosis and No Edema
Skin: Venous stasis dermatitis changes in the lower extremities.
Neuro: Nonfocal/grossly intact
Assessment/Plan
# Sepsis (hypothermia, hypotension) secondary to right groin bacteria intertrigo extending to vagina/bacterial superinfection of fungal intertrigo with possible Candidiasis
# Concern or UTI
# Chronic hypothermia
# Concern for Septic Shock
-IV fluids
-Benjamin hugger
-Follow wound culture
-Follow blood and urine cultures
-Continue Cefepime and Diflucan
-Continue topical Miconazole
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
-ID consulted
-Wean Dopamine as tolerated
# Bradycardia secondary to hypothermia
-EKG shows clear rhythm, heart rate 30s to 40s
-Hold metoprolol
-Asymptomatic
-Treat underlying infection
-Stress dose of hydrocortisone to be given
-TSH normal, a.m. cortisol elevated
# FRANCIS - secondary to shock - on CKD stage II
-Monitor with IV fluids -- patient is tolerating diet so can stop IV fluids soon
-Hold Lasix
# Worsening of chronic transaminitis unclear etiology possibly due to sepsis
-Continue to monitor
# Anemia
# Mild thrombocytopenia secondary to sepsis
-Continue to monitor
Paroxysmal atrial fibrillation with slow ventricular response
-Continue Eliquis
-Hold metoprolol
-Cardiology to be consulted, recommendations appreciated
-Hold Lopressor for now
Pauses on Cardiac Monitoring
-Hold Lopressor for now
-Cardiology consulted, recommendations appreciated
Severe tricuspid regurgitation
-Chest x-ray shows small bilateral pleural effusions mild basilar compressive atelectasis, stable cardiomegaly
Essential hypertension
Pyoderma gangrenosum
-On chronic doxycycline, can hold while on IV antibiotics
-Continue gentamicin topical
-Continue pentoxifylline
Chronic venous insufficiency
-Hold Lasix
Normocytic anemia
-Hemoglobin stable at 11.7
Hypercholesterolemia
-Continue statin
Hypothyroidism
-Continue levothyroxine
Type 2 diabetes
-Insulin sliding scale
Severe protein calorie malnutrition
History of right foot melanoma
Full code
DVT prophylaxis�Eliquis
Diet: IDDSI level 4 Puree diet, thin liquids. Meds crushed in puree. 1:1 assist with meals. Pt has poorly fitting top dentures; Recommending removing dentures prior to feeding and sleep.
Hypotension and shock with concern for septic shock is a high risk encounter.
Anticipated Discharge: > 48 hours
Subjective/Interval History
-
Date of Service: August 26, 2023
Patient was seen and examined. She was up from her bed with physical therapy today.
Objective Data
-
Labs:
Laboratory Results
08/26/23
05:54
WBC 6.5
Hgb 11.0 L
Hct 32.1 L
Plt Count 128 L
Sodium 140
Potassium 3.9
Chloride 113 H
Carbon Dioxide 26
BUN 42 H
Creatinine 1.2 H
Glucose 95
Calcium 8.4
Total Bilirubin 1.1
AST 100 H
ALT 102 H
Alkaline Phosphatase 374 H
Vital Signs:
Vital Signs
Temp Pulse Resp BP Pulse Ox
97.5 F 102 15 104/52 95
03/29/24 11:16 08/26/23 09:00 08/26/23 09:00 08/26/23 09:00 08/26/23 09:00
I&O
08/25/23 08/26/23 08/27/23
06:59 06:59 06:59
Intake Total 809.5 / 918.0 3634.6 / 3741.4 432.3 / 432.3
Output Total 600 / 600 900 / 930 180 / 180
Balance 209.5 / 318.0 2734.6 / 2811.4 252.3 / 252.3
--- NOTE | 2023-08-26 12:26 | PTOTSP ---
SPEECH THERAPY SWALLOW EVALUATION:
Clinical signs of oropharyngeal dysphagia, likely acutely related to confusion/altered mental status and weakness/deconditioning secondary to sepsis/Right groin infection, in setting of advanced age. Patient remains at risk for aspiration given
confusion. RN reporting difficulty with mastication, pocketing of food and oral holding of medications. Patient observed with whole pill and solid food particles in ill-fitting partial dentures prior to p.o. trials.
RECOMMEND:
1) IDDSI Level 4 Puree diet, thin liquids
2) Medications crushed in puree
3) REMOVE DENTURES prior to feeding and sleep
4) Aspiration precautions includin:1 assist with meals; Only feed patient when awake/alert; Oral care 3-5 times per day; Upright positioning; Small sips/bites; Slow rate of intake; Check for pocketing; Ensure patient clears oral cavity prior to
next bite; D/c feeding if signs or symptoms of aspiration or decline in mental or respiratory status
5) Speech therapy to follow, assess diet tolerance and modify as appropriate, monitor CXR and labs, provide education regarding aspiration risks/precautions, and provide continued diagnostic swallow therapy as appropriate
--- NOTE | 2023-08-26 12:31 | W.PN.ID1 ---
Date of Service
Date of Service: August 26, 2023
Today's Communication
Continue fluconazole and cefepime for now.
Assessment / Plan
# Hypotension, improving; weaned off 1 of 2 pressors
# Hypothermia
- Blood cx's neg to date
- CXR neg.
-Ucx GNR
- Continue cefepime (d3 abx) for now.
- Follow vitals.
# Perineum/inguinal candidiasis
- Continue fluconazole 100 mg po qd (d2)
# RLE pyoderma gangrenosum
- no sign of infection
#Additional Past Medical History:
DM2
HTN
HLD
pafib
severe TR
hypothyroidism
hypothermia
Lymphedema
venous insufficiency
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
right foot melanoma
severe protein-calorie malnutrition
Subjective / Review of Systems
Feeling better today. Pt more alert.
Vital Signs / Physical Exam
Vital Signs
Vital Signs
Temp Pulse Resp BP Pulse Ox
97.5 F 102 15 104/52 95
08/26/23 11:16 08/26/23 09:00 08/26/23 09:00 08/26/23 09:00 08/26/23 09:00
Physical Exam
Constitutional: Comfortable
Gastrointestinal: Soft, Non Tender and Non Distended
Skin: Other (Bilateral inguinal erythema decreased)
Neurological: Awake and Alert
Objective Data
Lab Data
Lab Results
08/26/23 05:54
08/26/23 05:54
PT 15.5 Sec (11.4-14.6) H 08/25/23 05:04
INR 1.23 08/25/23 05:04
APTT 40.9 Sec (23.4-35.0) H 08/25/23 05:04
Estimated Creat Clear 25 ml/min 08/26/23 05:54
Lactic Acid 1.3 mmol/L (0.7-2.0) 08/24/23 20:08
Total Bilirubin 1.1 mg/dl (0.2-1.3) 08/26/23 05:54
AST 100 U/L (14-36) H 08/26/23 05:54
ALT 102 U/L (0-35) H 08/26/23 05:54
Alkaline Phosphatase 374 U/L (38-126) H 08/26/23 05:54
Most recent labs reviewed.
Micro Results:
08/24/23 20:08 Wound Culture - Final
Groin - Right Klebsiella pneumoniae
Diptheroids
Gram Stain - Final
08/24/23 21:08 Urine Culture - Preliminary
Urine Gram negative bacilli
08/24/23 20:08 Blood Culture - Preliminary
Blood/Venous No Growth in 24 hours- Final report to follow
08/24/23 20:08 Blood Culture - Preliminary
Blood/Venous No Growth in 24 hours- Final report to follow
08/24/23 CXR: No active cardiopulmonary disease.
--- NOTE | 2023-08-26 13:05 | CM ---
CM following re: discharge planning.
Discussed in Rounds, reviewed pt's chart, met with pt. Per Rounds meeting, continue fluconazole and cefepime, continue supportive care.
PT and OT evaluations noted - SNF level of care recommended. Both pt and her daughter Lisa requested [facility]. A referral to [facility] made with a potential discharge date early next week.
Pt's daughter is working with [facility] to set up caregiver services.
D/C plan: [facility] when medically stable.
CM will follow with discharge plan updates as hospitalization progresses
[2023-08-26 16:55] LABS: Glucose - Point of Care 125 mg/dl (70-99)
[2023-08-26 17:17] LABS: Glucose - Point of Care 102 mg/dl (70-99)
[2023-08-26] MEDS: MAXIPIME 2000 MG IV (17:56)
[2023-08-26] MEDS: STERILE WATER FOR INJECTION 10 ML IV (17:57)
[2023-08-26] MEDS: ProAmatine 5 MG PO (17:57)
[2023-08-26] MEDS: VISBIOME 1 CAP PO (17:58)
[2023-08-26 18:51] LABS: Glucose - Point of Care 129 mg/dl (70-99)
--- NOTE | 2023-08-26 19:13 | PTCARENOTE ---
pt in bed. Dopamine off. Midodrine adm per order crushed with apple sauce. Core Temp 95.4 Benjamin huger applied . Irwin draining clear yellow urine. repositioned Q 2 hrs. Desenex powder applied to nathaly-wound covered with ABD
--- NOTE | 2023-08-26 20:00 | PTCARENOTE ---
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 AFib HR 60s, pvcs. IV x 3 WNL- no gtt infusing. RA Sat 95%. Irwin draining adequate amt cloudy yellow urine. R groin cleansed/skin care per order, Irwin care, CHG cloths,
turned/repositioned. POC discussed, call ybarra with pt.
[2023-08-26 22:11] LABS: Glucose - Point of Care 147 mg/dl (70-99)
[2023-08-27] VITALS (34 sets, daily range): BP systolic 85–126; BP diastolic 42–74; BMI 18.8
--- NOTE | 2023-08-27 03:00 | PTCARENOTE ---
no changes in pt assessment.
[2023-08-27 03:48] LABS: % Basophils 0.6 % (0-2); % Eosinophils 0.6 % (0-6); % Immature Granulocytes 0.6 % (0-0.5); % Lymphocytes 13.1 % (20.5-51.1); % Monocytes 7.4 % (1.7-9.3); % Neutrophils 77.7 % (42.2-75.2); Absolute Lymphocytes 0.6 10^3/uL (1.2-3.4); Absolute Monocytes 0.4 10^3/uL (0.1-0.6); Absolute Neutrophils 3.8 10^3/uL (1.4-6.5); Hematocrit 28.9 % (37.0-47.0); Hemoglobin 9.9 g/dL (12.0-16.0); Mean Corp Hgb Conc. 34.3 g/dL (33.0-37.0); Mean Corpuscular Hgb 32.7 pg (27.0-31.0); Mean Corpuscular Volume 95.4 fL (81.0-99.0); Nucleated Red Blood Cells % 1.8 %; Platelet Count 103 10^3/uL (130-400); Red Blood Cell Count 3.03 10^6/uL (4.20-5.40); Red Cell Dist. Width 17.6 % (11.5-14.5); White Blood Cell Count 4.9 10^3/uL (4.8-10.8)
[2023-08-27 04:18] LABS: ALT (SGPT) 105 U/L (0-35); AST (SGOT) 145 U/L (14-36); Albumin 2.3 g/dl (3.5-5.0); Alkaline Phosphatase 425 U/L (38-126); Blood Urea Nitrogen 39 mg/dl (7-17); Calcium 8.4 mg/dl (8.4-10.2); Carbon Dioxide 27 mmol/L (22-30); Chloride 113 mmol/L (98-107); Estimated Creatinine Clearance 27 ml/min; Glucose 105 mg/dl (70-99); Magnesium 2.1 mg/dl (1.6-2.3); Phosphorus 2.5 mg/dl (2.5-4.5); Potassium 3.8 mmol/L (3.5-5.1); Sodium 139 mmol/L (135-145); Total Bilirubin 1.1 mg/dl (0.2-1.3); Total Protein 4.5 g/dl (6.3-8.2); eGFR 48.63
--- NOTE | 2023-08-27 07:40 | PTCARENOTE ---
0700 patient received in bed alert, awake, forgetful. BP via left upper arm 97/48 MAP 68. Afib 70 RR 16 even no SOB. POX 95% core temp 97.7 while heidi huger on . Heidi huger turned off will monitor Temp . Indwelling Irwin draining cloudy yellow urine
. Peripheral lines flushed capped. BS 82. Breakfast ordered pending All pills adm crushed with apple sauce call ybarra within reach
--- NOTE | 2023-08-27 07:40 | W.PN.ID1 ---
Date of Service
Date of Service: August 27, 2023
Today's Communication
Continue antibiotics
Assessment / Plan
# Hypotension, improving; weaned off 1 of 2 pressors
# Hypothermia
- Blood cx's neg to date
- CXR neg.
- Ucx GNR; identification pending.
- Continue cefepime (d#4 abx) for now.
- Follow vitals.
# Perineum/inguinal candidiasis
- Continue fluconazole 100 mg po qd (d#3)
# RLE pyoderma gangrenosum
- no sign of infection
#Additional Past Medical History:
DM2
HTN
HLD
pafib
severe TR
hypothyroidism
hypothermia
Lymphedema
venous insufficiency
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
right foot melanoma
severe protein-calorie malnutrition
Chief Complaint
-: Other (Bacteriuria)
Subjective / Review of Systems
Review of Systems: No Fever
Vital Signs / Physical Exam
Vital Signs
Vital Signs
Temp Pulse Resp BP Pulse Ox
97.6 F 83 14 109/48 94
08/27/23 06:31 08/27/23 06:15 08/27/23 06:15 08/27/23 06:00 08/27/23 06:15
Physical Exam
Constitutional: Chronically Ill, Non-toxic and Cachetic
Eyes: Sclera Anicteric
Cardiovascular: S1/S2; Negative S3/S4
Pulmonary: Non Labored
Gastrointestinal: Soft and Non Distended
Psychological: Calm
Objective Data
Lab Data
Lab Results
08/27/23 03:25
08/27/23 03:25
PT 15.5 Sec (11.4-14.6) H 08/25/23 05:04
INR 1.23 08/25/23 05:04
APTT 40.9 Sec (23.4-35.0) H 08/25/23 05:04
Estimated Creat Clear 27 ml/min 08/27/23 03:25
Lactic Acid 1.3 mmol/L (0.7-2.0) 08/24/23 20:08
Total Bilirubin 1.1 mg/dl (0.2-1.3) 08/27/23 03:25
AST 145 U/L (14-36) H 08/27/23 03:25
ALT 105 U/L (0-35) H 08/27/23 03:25
Alkaline Phosphatase 425 U/L (38-126) H 08/27/23 03:25
Most recent labs reviewed.
Micro Results:
08/24/23 21:08 Urine Culture - Preliminary
Urine Gram negative bacilli
08/24/23 20:08 Blood Culture - Preliminary
Blood/Venous No Growth in 48 hours- Final report to follow
08/24/23 20:08 Blood Culture - Preliminary
Blood/Venous No Growth in 48 hours- Final report to follow
08/24/23 20:08 Wound Culture - Final
Groin - Right Klebsiella pneumoniae
Diptheroids
Gram Stain - Final
08/24/23 CXR: No active cardiopulmonary disease.
[2023-08-27] MEDS: NOVOLOG FLEXPEN-LOW RESISTANCE SC (07:43)
[2023-08-27] MEDS: ProAmatine 5 MG PO (07:44)
[2023-08-27] MEDS: DIFLUCAN 100 MG PO (07:44)
[2023-08-27] MEDS: TRENTAL 400 MG PO ×2 (07:44→19:56)
[2023-08-27] MEDS: SYNTHROID 50 MCG PO (07:44)
[2023-08-27] MEDS: LIPITOR 20 MG PO (07:44)
[2023-08-27] MEDS: VITAMIN D3 (cholecalciferol) 50 MCG PO (07:44)
[2023-08-27] MEDS: ELIQUIS 2.5 MG PO ×2 (07:44→19:56)
[2023-08-27] MEDS: DESENEX/MITRAZOL/ZEASORB 1 APPLIC TOPICAL ×2 (07:45→19:56)
[2023-08-27 07:53] LABS: Glucose - Point of Care 83 mg/dl (70-99)
--- NOTE | 2023-08-27 08:21 | W.PN.CARDCBS ---
Today's Communication / Plan
-
No further significant pauses. Ventricular rates are acceptable in the 80-90 range with frequent PVCs.
Blood pressure remains somewhat marginal. Will continue to hold Lopressor for now
Continue antibiotics.
Impression / Plan
-
Primary Coat Ironer Hand: Dr. Jeanie Rollins
Assessment:
Presentation with R groin infection
Sepsis
Hypothermia
Bradycardia secondary to above, improved
Frequent PVCs at times in pattern of bigeminy
FRANCIS on CKD
Acute on chronic transaminitis
mild thrombocytopenia
Persistent atrial fibrillation/flutter
Chronic Eliquis therapy
chronic diastolic congestive heart failure
Mitral regurgitation
Hypertension
Hyperlipidemia
Hypothyroidism
DM2
CKD
Secondary pulmonary hypertension
Peripheral vascular disease/chronic venous insufficiency
Bilateral lower extremity wounds
Pyoderma gangrenosum, on chronic doxycycline
ECHO 04/26/2023: EF 60 to 65%, mild LVH, small LV, MAC, mild MR, dilated left atrium, aortic sclerosis, dilated right atrium, severe TR, PAP 25 to 30 mmHg
Plan:
-Patient presents with sepsis in the setting of right groin infection. She was hypothermic on arrival, and bradycardic in A-fib as a result of this with 2 to 3-second pauses. This is improved with normalization of her temperature.
-Now off dopamine
-Currently in A-fib with controlled rates and PVCs, at times in pattern of bigeminy. Follow electrolytes, stable 08/25.
-weaning dopamine to off
-OP lopressor on hold at present. resume low dose as BP allows
-continue eliquis 2.5mg BID
-TSH WNL
-Recent echo with results as above, would not repeat at this time.
-Continue treatment of right groin wound/infection as well as bilateral lower extremity wounds
Progress Note - Coat Ironer Hand
Subjective
Date of Service: August 27, 2023
Feeling better. No dizziness or palpitations.
Objective
Labs:
08/27/23 03:25
08/27/23 03:25
Labs
Hgb 9.9 g/dL (12.0-16.0) L 08/27/23 03:25
Hct 28.9 % (37.0-47.0) L 08/27/23 03:25
Plt Count 103 10^3/uL (130-400) L 08/27/23 03:25
PT 15.5 Sec (11.4-14.6) H 08/25/23 05:04
INR 1.23 08/25/23 05:04
APTT 40.9 Sec (23.4-35.0) H 08/25/23 05:04
Sodium 139 mmol/L (135-145) 08/27/23 03:25
Potassium 3.8 mmol/L (3.5-5.1) 08/27/23 03:25
BUN 39 mg/dl (7-17) H 08/27/23 03:25
Creatinine 1.1 mg/dL (0.6-1.0) H 08/27/23 03:25
Glucose 105 mg/dl (70-99) H 08/27/23 03:25
Vital Signs and I&O:
Vital Signs
Temp Pulse Resp BP Pulse Ox
97.7 F 74 14 48 94
08/27/23 07:48 08/27/23 07:44 08/27/23 06:15 08/27/23 07:44 08/27/23 06:15
Vital Signs
Temp Pulse Resp BP Pulse Ox
97.7 F 74 14 9748 94
08/27/23 07:48 08/27/23 07:44 08/27/23 06:15 08/27/23 07:44 08/27/23 06:15
Intake & Output
08/25/23 08/26/23 08/27/23 08/28/23
06:59 06:59 06:59 06:59
Intake Total 809.5 / 918.0 3634.6 / 3741.4 1129.8 / 1369.8 240 / 240
Output Total 600 / 600 900 / 930 975 / 1015 40 / 40
Balance 209.5 / 318.0 2734.6 / 2811.4 154.8 / 354.8 200 / 200
Physical Exam
Physical Exam
GEN: No distress, awake, Ox3
HEENT: supple, anicteric, mmm
LUNGS: scatt rhonchi
CV: irreg, S1/S2, 1/6 syst LSB, no gallop
ABD: soft, BS+, NT/ND
EXT: No edema
NEURO: Gross non-focal
SKIN: No rash
--- NOTE | 2023-08-27 08:50 | W.PN.INTV ---
Addendum entered and electronically signed by Rito Faulkner MD 08/27/23 13:08:
Continue to monitor/trend LFTs and if AST and ALT continue to worsen then would hold Lipitor.
Original Note:
Today's Communication / Plan
Recommendations
Cardiology consulted and recs appreciated
Continue with broad-spectrum antibiotics per ID
Encourage incentive spirometer/up OOB as tolerated/PT OT
Monitor on telemetry given sinus pauses today of 3-4 seconds.
Maintain normothermia
Re-check TFTs tomorrow
Patient stable for transfer out of ICU to IMU. Welding Tester/pulmonary service will now sign off. Please reconsult if there are any additional questions/concerns, or if patient's respiratory status deteriorates.
Assessment
-
Assessment: 87-year-old female with a past medical history of lower extremity pyoderma gangrenosum, CKD, history of hypothermia, tricuspid regurgitation, hypertension, hyperlipidemia, caloric malnutrition and history of-melanoma who presents with
weakness and right groin infection. Per the daughter, the patient has been acting weak lately with difficulty ambulating and it was discovered she has a right groin infection with a red rash that has a foul odor. Patient hypothermic in the ER to
90.7 �F, heart rate 60, BP 97/54 and saturating 99% on room air. Labs showed creatinine 1.3, BUN 67, ALP 433, Hb 11.7 and platelets 127. Urinalysis was positive for nitrites and trace leukocyte esterase. Antibiotics were given in the ER with
vancomycin/Zosyn, IV fluids were given with total of 1.5 L NS 0.9% and due to bradycardia with HR into 30s and hypotension (SBP in 60s) dopamine was initiated. Patient then transferred to the ICU for further care and critical care services
consulted for additional management/recommendations.
Chronic medical conditions ENERGY ADVISOR:: CKD, pyoderma gangrenosum, anemia, paroxysmal A-fib on Eliquis, tricuspid regurgitation, hypertension, hyperlipidemia, hypothyroidism, DM type II, malnutrition, history of right foot melanoma
Impression:
#Right groin intertriginous dermatitis with suspected Candidiasis and superinfection with Klebsiella pneumoniae/Diptheroids
#UTI secondary to Klebsiella pneumonia
#Shock (resolved) - suspect sepsis due to above in setting of bradycardia --> bradycardia also now resolved
#Atrial fibrillation with slow ventricular response - bradycardia/slow ventricular response resolved
#Acute kidney injury - due to shock (baseline Cr 0.9 - 1.1) - improving
#Hypothermia - this is chronic, and likely worsened acutely due to sepsis
#Anemia (baseline Hb 11.5-13g/dL)
#Thrombocytopenia - likely due to sepsis
#DM type II (uncontrolled with A1C: 7)
#Hyperbilirubinemia with transaminitis (her LFTs are chronically elevated) -T. bili is now normal
Plan:
- Continue ABx as per ID (cefepime + diflucan) - she should obtain 10-14 days total of ABx
- Continue topical miconazole
- Maintain goal MAP>65 and HR 60-110
- Cardiology consulted - recs appreciated - no need for PPM at this time
- Today (08-27-2023) patient had a cardiac pause of about 3-4 seconds; patient was asymptomatic during this with no change to BP or respiratory status; cardiology aware
- Continue wound care
- Remove Irwin, and place purewick to trend UOP and avoid getting groin wounds soiled with urine
- Continue to maintain normothermia with Benjamin hugger as needed
- Re-check TFTs to assess if any hypothyroidism in play that is causing her hypothermia
- Renally dose all meds/Abx
- trend platelet count and transfuse if needed to keep >20k, and keep Hb>7g/dL
- Trend LFTs
- Maintain SpO2 >90-94%
- Goal BG 140-180mg/dL
- Replete K>3.5, Mg>1.8
- DVT ppx
Dispo: Patient stable for transfer out of ICU to IMU. Welding Tester/pulmonary service will now sign off. Thank you for allowing us to be involved in the care of this patient. Please reconsult if there are any additional questions/concerns, or if
patient's respiratory status deteriorates.
Total time spent today was 55 minutes for this encounter. Time includes reviewing laboratory test/imaging results, reviewing pertinent medical records, obtaining and reviewing medical history, performing an appropriate exam, ordering medications,
tests and procedures. Time also includes documentation of this encounter, coordinating patient care and communicating with other healthcare professionals. Total time does not include separately billed tests performed on this date of service.
Data:
CXR 08-24-2023: No active cardiopulmonary disease.
Subjective Dataa
Subjective Data
Date of Service:
Date of Service: August 27, 2023
Chief Complaint: Welding Tester Follow Up
Subjective:
Patient seen and evaluated today at bedside. She looks good and feels good. No issues overnight. BP 113/58, heart rate 67 and respiratory rate 18. She is on room air breathing comfortably. Her groin also looks less red today. She denies
headache, chest pain, shortness of breath, fevers or chills.
Review of Systems
General: Other (Negative unless mentioned above)
Objective Data
Data Reviewed
Vital Signs / I&O / Oxygen:
Vital Signs
Temp Pulse Resp BP Pulse Ox
96.6 F L 90 17 112/64 98
08/27/23 12:36 08/27/23 12:30 08/27/23 12:30 08/27/23 12:00 08/27/23 11:30
Intake and Output
08/26/23 08/27/23 08/28/23
06:59 06:59 06:59
Intake Total 3634.6 / 3741.4 1129.8 / 1369.8 580 / 580
Output Total 900 / 930 975 / 1015 165 / 165
Balance 2734.6 / 2811.4 154.8 / 354.8 415 / 415
SaO2 98
Physical Exam
General: Respiratory Distress (negative) and Comfortable
HEENT: Normocephalic and Anicteric
Cardiovascular: S1-S2 and Peripheral Edema (+1 lower extremity pitting edema)
Respiratory: Wheeze (negative), Crackles (Bibasilar), Rhonchi (negative), Non-Labored Respirations and Other (Reduced breath sound)
GI: Soft, Non Distended and Non Tender
Neurology: Awake and Alert
Skin: Warm, Dry and Other (Bandages on bilateral lower extremities; erythema seen on bilateral skin overlying ischiopubic rami)
Labs/Micro/Reports
Lab Data
08/27/23 03:25
08/27/23 03:25
Microbiology
08/24/23 21:08 Urine Urine Culture - Final
Klebsiella pneumoniae
08/24/23 20:08 Blood/Venous Blood Culture - Preliminary
No Growth in 48 hours- Final report to follow
08/24/23 20:08 Blood/Venous Blood Culture - Preliminary
No Growth in 48 hours- Final report to follow
08/24/23 20:08 Groin - Right Wound Culture - Final
Klebsiella pneumoniae
Diptheroids
08/24/23 20:08 Groin - Right Gram Stain - Final
[2023-08-27] MEDS: FLEXBUMIN 100 IV ×3 (11:32→18:45)
[2023-08-27] MEDS: NOVOLOG FLEXPEN-LOW RESISTANCE 1 UNITS SC (11:49)
[2023-08-27 12:15] LABS: Glucose - Point of Care 169 mg/dl (70-99)
--- NOTE | 2023-08-27 12:33 | PTCARENOTE ---
Pause 4.16 second :
Pause 4.16 second . patient asymptomatic. OOB chair since 9am . Awake and alert, able to let her needs know. Afib 90 BP via left upper arm 112/64 RR 15. 95%RA . Dr Temple notified, no new orders at this time . Albumin 25% infusing per current
order call ybarra within reach
[2023-08-27] MEDS: ProAmatine 10 MG PO ×2 (14:44→18:41)
--- NOTE | 2023-08-27 15:04 | W.PN.HOSP.TC ---
Today's Communication/Plan
-
Transfer to IMU
Continue IV antibiotics and antifungal
Remaining management as below
Assessment / Plan
Assessment / Plan
Physical Exam
General: Well Developed, Well Nourished and No Apparent Distress
HEENT: Normocephalic, Moist mucous membranes and Atraumatic
Respiratory: Clear to Auscultation Bilaterally
Cardiac: S1/S2 and Irregular Rhythm
GI: Soft, Non Tender, Non Distended and Normal Bowel Sounds
Musculoskeletal: No Cyanosis and No Edema
Skin: Venous stasis dermatitis changes in the lower extremities.
Neuro: Nonfocal/grossly intact
Assessment/Plan
# Sepsis (hypothermia, hypotension) secondary to right groin bacteria intertrigo extending to vagina/bacterial superinfection of fungal intertrigo with possible Candidiasis
# Concern or UTI
# Chronic hypothermia
# Concern for Septic Shock
-Weaned off Dopamine on August 26, 2023
-Maintain goal MAP>65 and HR 60-110
-Status post IV fluids
-Benjamin anderson -- continue as needed to maintain normothermia
-Follow wound culture
-Follow blood and urine cultures
-Continue Cefepime and Diflucan
-Continue topical Miconazole
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
-ID consulted
-Wound care
-Use purewick to avoid contaminating wounds
-Re-check TFTs to assess if any hypothyroidism in play that is causing her hypothermia
# Bradycardia secondary to hypothermia
-EKG showed clear rhythm, heart rate 30s to 40s
-Hold metoprolol
-Asymptomatic
-Treat underlying infection
-Stress dose of hydrocortisone to be given
-TSH normal, a.m. cortisol elevated
# FRANCIS - secondary to shock - on CKD stage II
-Monitor with IV fluids -- patient is tolerating diet so can stop IV fluids soon
-Hold Lasix
# Worsening of chronic transaminitis unclear etiology possibly due to sepsis
-Continue to monitor
-Hold Lipitor if AST/ALT continue to worsen
# Anemia
# Mild thrombocytopenia secondary to sepsis
-Continue to monitor
Paroxysmal atrial fibrillation with slow ventricular response
-Continue Eliquis
-Hold metoprolol
-Cardiology to be consulted, recommendations appreciated
-Hold Lopressor for now
Pauses on Cardiac Monitoring
-Hold Lopressor for now
-Another 3 to 4 second pause on August 27, 2023, cardiology is following
-Cardiology consulted, recommendations appreciated
Severe tricuspid regurgitation
-Chest x-ray shows small bilateral pleural effusions mild basilar compressive atelectasis, stable cardiomegaly
Essential hypertension
Pyoderma gangrenosum
-On chronic doxycycline, can hold while on IV antibiotics
-Continue gentamicin topical
-Continue pentoxifylline
Chronic venous insufficiency
-Hold Lasix
Normocytic anemia
-Hemoglobin stable at 11.7
Hypercholesterolemia
-Continue statin
Hypothyroidism
-Continue levothyroxine
Type 2 diabetes
-Insulin sliding scale
Severe protein calorie malnutrition
History of right foot melanoma
Full code
DVT prophylaxis�Eliquis
Diet: IDDSI level 4 Puree diet, thin liquids. Meds crushed in puree. 1:1 assist with meals. Pt has poorly fitting top dentures; Recommending removing dentures prior to feeding and sleep.
Anticipated Discharge: > 48 hours
Subjective/Interval History
-
Date of Service: August 27, 2023
Patient was seen and examined. She was lying in bed comfortably, denied any new significant symptoms or complaints.
Objective Data
-
Labs:
Laboratory Results
08/27/23
03:25
WBC 4.9
Hgb 9.9 L
Hct 28.9 L
Plt Count 103 L
Sodium 139
Potassium 3.8
Chloride 113 H
Carbon Dioxide 27
BUN 39 H
Creatinine 1.1 H
Glucose 105 H
Calcium 8.4
Total Bilirubin 1.1
AST 145 H
ALT 105 H
Alkaline Phosphatase 425 H
Vital Signs:
Vital Signs
Temp Pulse Resp BP Pulse Ox
96.6 F L 70 14 109/53 98
08/27/23 12:36 08/27/23 14:44 08/27/23 12:45 08/27/23 14:44 08/27/23 11:30
I&O
08/26/23 08/27/23 08/28/23
06:59 06:59 06:59
Intake Total 3634.6 / 3741.4 1129.8 / 1369.8 580 / 580
Output Total 900 / 930 975 / 1015 190 / 190
Balance 2734.6 / 2811.4 154.8 / 354.8 390 / 390
--- NOTE | 2023-08-27 15:11 | CHAP ---
Ms. Henning welcomed me graciously. Said she's doing well. Emotional and spiritual support offered, prayer blanket provided.
--- NOTE | 2023-08-27 15:41 | PTCARENOTE ---
Transfer from from chair to bed x2 people assist . pt very unsteady on her feet. Indwelling Irwin removed pt due to void at 21:30 Purwick catheter applied for incontinent. Multiple, loose stools, pt incontinent of stool. Albumin 2 nd samina
administered. Midodrine 10 mg adm . BP stable.
Wounds: B/L Groin: fungal rash : desenex powder applied. ABD for moisture absorption. B/L LE venous ulcers : cleanse NSS +Xeroform appled covered with ABD secured with Jamar. pt in bed b/l LE elevated on pillows call ybarra within reach. pt downgraded
to IMU level of care
[2023-08-27 16:59] LABS: Glucose - Point of Care 231 mg/dl (70-99)
[2023-08-27] MEDS: NOVOLOG FLEXPEN-LOW RESISTANCE 2 UNITS SC (17:25)
[2023-08-27] MEDS: MAXIPIME 2000 MG IV (18:41)
[2023-08-27] MEDS: VISBIOME 1 CAP PO (18:41)
[2023-08-27] MEDS: STERILE WATER FOR INJECTION 10 ML IV (18:41)
[2023-08-27 21:45] LABS: Glucose - Point of Care 215 mg/dl (70-99)
[2023-08-28] VITALS (25 sets, daily range): BP systolic 95–134; BP diastolic 53–102; BMI 18.9
[2023-08-28 06:41] LABS: % Basophils 0.6 % (0-2); % Eosinophils 1.2 % (0-6); % Immature Granulocytes 0.6 % (0-0.5); % Lymphocytes 20.6 % (20.5-51.1); % Monocytes 7.3 % (1.7-9.3); % Neutrophils 69.7 % (42.2-75.2); Absolute Lymphocytes 0.7 10^3/uL (1.2-3.4); Absolute Monocytes 0.2 10^3/uL (0.1-0.6); Absolute Neutrophils 2.3 10^3/uL (1.4-6.5); Hematocrit 27.9 % (37.0-47.0); Hemoglobin 9.5 g/dL (12.0-16.0); Mean Corp Hgb Conc. 34.1 g/dL (33.0-37.0); Mean Corpuscular Hgb 32.3 pg (27.0-31.0); Mean Corpuscular Volume 94.9 fL (81.0-99.0); Mean Platelet Volume 12.9 fL (7.4-10.4); Nucleated Red Blood Cells % 3.9 %; Platelet Count 93 10^3/uL (130-400); Red Blood Cell Count 2.94 10^6/uL (4.20-5.40); Red Cell Dist. Width 17.9 % (11.5-14.5); White Blood Cell Count 3.3 10^3/uL (4.8-10.8)
[2023-08-28] MEDS: SYNTHROID 50 MCG PO (07:15)
[2023-08-28 07:26] LABS: ALT (SGPT) 530 U/L (0-35); AST (SGOT) 1044 U/L (14-36); Albumin 3.2 g/dl (3.5-5.0); Alkaline Phosphatase 562 U/L (38-126); Blood Urea Nitrogen 42 mg/dl (7-17); Carbon Dioxide 26 mmol/L (22-30); Chloride 114 mmol/L (98-107); Estimated Creatinine Clearance 28 ml/min; Glucose 89 mg/dl (70-99); Magnesium 2.1 mg/dl (1.6-2.3); Phosphorus 2.4 mg/dl (2.5-4.5); Potassium 3.5 mmol/L (3.5-5.1); Sodium 141 mmol/L (135-145); Total Bilirubin 1.9 mg/dl (0.2-1.3); Total Protein 5.1 g/dl (6.3-8.2); eGFR 48.63
[2023-08-28 07:40] LABS: Free T3 2.39 pg/ml (2.77-5.27); Free T4 1.45 ng/dl (0.78-2.19); Total Thyroxine 6.86 ug/dl (5.5-11.0)
[2023-08-28 07:53] LABS: TSH 2.25 uIU/ml (0.47-4.68)
--- NOTE | 2023-08-28 07:56 | W.PN.ID1 ---
Date of Service
Date of Service: August 28, 2023
Today's Communication
Narrow to Keflex. Discontinue further Diflucan. Trend LFTs.
Assessment / Plan
# Hypotension, improving; weaned off of pressors
# Hypothermia
- Blood cx's neg to date
- CXR neg.
- Ucx with Klebsiella
- Narrow cefepime to cephalexin
- Follow vitals.
# Transaminitis
# Perineum/inguinal candidiasis
- Currently on diflucan. Will D/C for now given rise in LFT's. Continue topical miconazole
# RLE pyoderma gangrenosum
- no sign of infection
#Additional Past Medical History:
DM2
HTN
HLD
pafib
severe TR
hypothyroidism
hypothermia
Lymphedema
venous insufficiency
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
right foot melanoma
severe protein-calorie malnutrition
Chief Complaint
-: Other (Bacteriuria)
Vital Signs / Physical Exam
Vital Signs
Vital Signs
Temp Pulse Resp BP Pulse Ox
98.5 F 61 15 101/63 94
08/28/23 07:40 08/28/23 06:30 08/28/23 06:30 08/28/23 06:00 08/28/23 06:30
Physical Exam
Physical Exam:
Constitutional: Chronically Ill, Non-toxic and Cachetic
Eyes: Sclera Anicteric
Cardiovascular: S1/S2; Negative S3/S4
Pulmonary: Non Labored
Gastrointestinal: Soft and Non Distended
Psychological: Calm
Objective Data
Lab Data
Lab Results
08/28/23 06:10
08/28/23 06:10
PT 15.5 Sec (11.4-14.6) H 08/25/23 05:04
INR 1.23 08/25/23 05:04
APTT 40.9 Sec (23.4-35.0) H 08/25/23 05:04
Estimated Creat Clear 28 ml/min 08/28/23 06:10
Lactic Acid 1.3 mmol/L (0.7-2.0) 08/24/23 20:08
Total Bilirubin 1.9 mg/dl (0.2-1.3) H 08/28/23 06:10
AST 1044 U/L (14-36) H* 08/28/23 06:10
ALT 530 U/L (0-35) H* 08/28/23 06:10
Alkaline Phosphatase 562 U/L (38-126) H 08/28/23 06:10
Most recent labs reviewed.
Micro Results:
08/24/23 20:08 Blood Culture - Preliminary
Blood/Venous No Growth in 72 hours- Final report to follow
08/24/23 20:08 Blood Culture - Preliminary
Blood/Venous No Growth in 72 hours- Final report to follow
08/24/23 21:08 Urine Culture - Final
Urine Klebsiella pneumoniae
08/24/23 20:08 Wound Culture - Final
Groin - Right Klebsiella pneumoniae
Diptheroids
Gram Stain - Final
08/24/23 CXR: No active cardiopulmonary disease.
--- NOTE | 2023-08-28 08:00 | PTCARENOTE ---
Addendum entered by Joanne Hernandez RN 08/28/23 16:52:
Dr. Urban to bedside this AM, critical lab work (ASt-1044 and ALT- 530) relayed to him and further orders received.
Original Note:
Received pt @ change of shift. Drowsy, awakens to verbal stim; ox1, required reorientation to time/place; confused/forgetful. Afib on monitor w PVC's bigeminy. Spo2 97% on RA. +BS, abd soft/nt; RL inguinal hernia. Tolerated meds crushed in
applesace; minimal intake for breakfast. Inc of b/b @ x's; other x's attempt bedpan. Janelle care provided. B/L LE and heel dressings c/d/i. Pt. repositioned per orders. Bed alarm active. Safe environment maintained.
[2023-08-28 08:07] LABS: Glucose - Point of Care 86 mg/dl (70-99)
--- NOTE | 2023-08-28 08:07 | W.PN.CARDCBS ---
Today's Communication / Plan
-
Still with pauses of 3 to 4-second
Continue to hold all AV kendal lorraine
Continue to treat underlying infection
No clear indication for pacemaker at this time. Continue to follow on telemetry
Now with abnormal LFTs and transaminitis. DC metoprolol
Continue Eliquis for now.
Impression / Plan
-
Primary Insurance Healthcare Representative: Dr. Jeanie Rollins
Assessment:
Presentation with R groin infection
Sepsis
Hypothermia
Bradycardia secondary to above, improved
Frequent PVCs at times in pattern of bigeminy
FRANCIS on CKD
Acute on chronic transaminitis
mild thrombocytopenia
Persistent atrial fibrillation/flutter
Chronic Eliquis therapy
chronic diastolic congestive heart failure
Mitral regurgitation
Hypertension
Hyperlipidemia
Hypothyroidism
DM2
CKD
Secondary pulmonary hypertension
Peripheral vascular disease/chronic venous insufficiency
Bilateral lower extremity wounds
Pyoderma gangrenosum, on chronic doxycycline
ECHO 04/26/2023: EF 60 to 65%, mild LVH, small LV, MAC, mild MR, dilated left atrium, aortic sclerosis, dilated right atrium, severe TR, PAP 25 to 30 mmHg
Plan:
-Still having pauses up to 3 to 4 seconds. She is asymptomatic. She continues to struggle with her infection and now has markedly abnormal LFTs. Continue to follow on telemetry. No clear indication for pacemaker at this time.
-Currently in A-fib with controlled rates and PVCs, at times in pattern of bigeminy.
-Off dopamine and blood pressure is stable. Continue midodrine
-Continue to hold metoprolol
-continue eliquis 2.5mg BID
-Continue antibiotics
-TSH WNL
-Stop atorvastatin with abnormal liver function
-Weight is slowly increasing. Likely will need a dose of Lasix over next 24 hours.
-Continue treatment of right groin wound/infection as well as bilateral lower extremity wounds
cc time 32 min
Progress Note - Insurance Healthcare Representative
Subjective
Date of Service: August 28, 2023
Having episodes of pauses up to 3 to 4 seconds. Denies dizziness or lightheadedness. Denies chest pains.
Objective
Labs:
08/28/23 06:10
08/28/23 06:10
Labs
Hgb 9.5 g/dL (12.0-16.0) L 08/28/23 06:10
Hct 27.9 % (37.0-47.0) L 08/28/23 06:10
Plt Count 93 10^3/uL (130-400) L 08/28/23 06:10
PT 15.5 Sec (11.4-14.6) H 08/25/23 05:04
INR 1.23 08/25/23 05:04
APTT 40.9 Sec (23.4-35.0) H 08/25/23 05:04
Sodium 141 mmol/L (135-145) 08/28/23 06:10
Potassium 3.5 mmol/L (3.5-5.1) 08/28/23 06:10
BUN 42 mg/dl (7-17) H 08/28/23 06:10
Creatinine 1.1 mg/dL (0.6-1.0) H 08/28/23 06:10
Glucose 89 mg/dl (70-99) 08/28/23 06:10
Vital Signs and I&O:
Vital Signs
Temp Pulse Resp BP Pulse Ox
98.5 F 61 15 101/63 94
08/28/23 07:40 08/28/23 06:30 08/28/23 06:30 08/28/23 06:00 08/28/23 06:30
Vital Signs
Temp Pulse Resp BP Pulse Ox
98.5 F 61 15 101/63 94
08/28/23 07:40 08/28/23 06:30 08/28/23 06:30 08/28/23 06:00 08/28/23 06:30
Intake & Output
08/26/23 08/27/23 08/28/23 08/29/23
06:59 06:59 06:59 06:59
Intake Total 3634.6 / 3741.4 1129.8 / 1369.8 810 / 810
Output Total 900 / 930 975 / 1015 190 / 190
Balance 2734.6 / 2811.4 154.8 / 354.8 620 / 620
Physical Exam
Physical Exam
GEN: No distress, awake, Ox3
HEENT: supple, anicteric, mmm
LUNGS: CTA, no wheezes/rales
CV: irreg, S1/S2, 1/6 syst LSB, no gallop
ABD: soft, BS+, NT/ND
EXT: trace edema
NEURO: Gross non-focal
SKIN: No rash
[2023-08-28] MEDS: NOVOLOG FLEXPEN-LOW RESISTANCE SC ×3 (09:04→16:31)
[2023-08-28] MEDS: DESENEX/MITRAZOL/ZEASORB 1 APPLIC TOPICAL ×2 (09:43→20:44)
[2023-08-28] MEDS: DIFLUCAN PO (09:43)
[2023-08-28] MEDS: ELIQUIS 2.5 MG PO ×2 (09:43→20:44)
[2023-08-28] MEDS: ProAmatine 10 MG PO ×3 (09:44→18:32)
[2023-08-28] MEDS: VITAMIN D3 (cholecalciferol) 50 MCG PO (09:44)
[2023-08-28] MEDS: TRENTAL 400 MG PO ×2 (09:44→20:43)
[2023-08-28 11:50] LABS: Glucose - Point of Care 91 mg/dl (70-99)
--- NOTE | 2023-08-28 12:15 | PTCARENOTE ---
pt. w occasional episodes of bradycardia into 30's, self resolving into 60-70's. Asymptomatic. Cardio, Dr. Pinedo, aware. No new orders.
--- NOTE | 2023-08-28 16:32 | W.PN.HOSP.TC ---
Today's Communication/Plan
-
Worsening of chronic transaminitis unclear etiology possibly due to sepsis
-Worsened significantly on August 28, 2023
-Now holding Lipitor as AST/ALT worsened
-Stopped any Tylenol as well
-Urgent abdominal ultrasound
-Diflucan stopped
-Consulted gastroenterology, recommendations appreciated
Assessment / Plan
Assessment / Plan
Physical Exam
General: Well Developed, Well Nourished and No Apparent Distress
HEENT: Normocephalic, Moist mucous membranes and Atraumatic
Respiratory: Clear to Auscultation Bilaterally
Cardiac: S1/S2 and Irregular Rhythm
GI: Soft, Non Tender, Non Distended and Normal Bowel Sounds
Musculoskeletal: No Cyanosis and No Edema
Skin: Venous stasis dermatitis changes in the lower extremities.
Neuro: Nonfocal/grossly intact
Assessment/Plan
# Sepsis (hypothermia, hypotension) secondary to right groin bacteria intertrigo extending to vagina/bacterial superinfection of fungal intertrigo with possible Candidiasis
# Concern or UTI
# Chronic hypothermia
# Concern for Septic Shock
-Weaned off Dopamine on August 26, 2023
-Maintain goal MAP>65 and HR 60-110
-Status post IV fluids
-Benjamin hugger -- continue as needed to maintain normothermia
-Follow wound culture
-Follow blood and urine cultures
-Status post Cefepime
-Now on Cephalexin
-ID stopped Diflucan due to elevated hepatic transaminases
-Continue topical Miconazole
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
-ID consulted
-Wound care
-Use purewick to avoid contaminating wounds
-Re-check TFTs to assess if any hypothyroidism in play that is causing her hypothermia
# Bradycardia secondary to hypothermia
-EKG showed clear rhythm, heart rate 30s to 40s
-Hold metoprolol
-Asymptomatic
-Treat underlying infection
-Stress dose of hydrocortisone to be given
-TSH normal, a.m. cortisol elevated
# FRANCIS - secondary to shock - on CKD stage II
-Monitor with IV fluids -- patient is tolerating diet so can stop IV fluids soon
-Hold Lasix
# Worsening of chronic transaminitis unclear etiology possibly due to sepsis
-Worsened significantly on August 28, 2023
-Now holding Lipitor as AST/ALT worsened
-Holding any Tylenol as well
-Urgent liver ultrasound
-ID stopped Diflucan
-Consulted gastroenterology, recommendations appreciated
# Anemia
# Mild thrombocytopenia secondary to sepsis
-Continue to monitor
Paroxysmal atrial fibrillation with slow ventricular response
Pauses on Cardiac Monitoring
-Continue Eliquis
-Cardiology to be consulted, recommendations appreciated
-Hold Lopressor for now and all atrioventricular kendal lorraine
-Have been having pauses essentially everyday
-Cardiology consulted, recommendations appreciated
Severe tricuspid regurgitation
-Chest x-ray shows small bilateral pleural effusions mild basilar compressive atelectasis, stable cardiomegaly
Essential hypertension
Pyoderma gangrenosum
-On chronic doxycycline, can hold while on IV antibiotics
-Continue gentamicin topical
-Continue pentoxifylline
Chronic venous insufficiency
-Hold Lasix
Normocytic anemia
-Hemoglobin stable at 11.7
Hypercholesterolemia
-Continue statin
Hypothyroidism
-Continue levothyroxine
Type 2 diabetes
-Insulin sliding scale
Severe protein calorie malnutrition
History of right foot melanoma
Full code
DVT prophylaxis�Eliquis
Diet: IDDSI level 4 Puree diet, thin liquids. Meds crushed in puree. 1:1 assist with meals. Pt has poorly fitting top dentures; Recommending removing dentures prior to feeding and sleep.
Anticipated Discharge: > 48 hours
Subjective/Interval History
-
Date of Service: August 28, 2023
Patient was seen and examined. She reported no new symptoms or complaints. She was off the Benjamin Hugger this morning.
Objective Data
-
Labs:
Laboratory Results
08/28/23
06:10
WBC 3.3 L
Hgb 9.5 L
Hct 27.9 L
Plt Count 93 L
Sodium 141
Potassium 3.5
Chloride 114 H
Carbon Dioxide 26
BUN 42 H
Creatinine 1.1 H
Glucose 89
Calcium 9.0
Total Bilirubin 1.9 H
AST 1044 H*
ALT 530 H*
Alkaline Phosphatase 562 H
Vital Signs:
Vital Signs
Temp Pulse Resp BP Pulse Ox
97.1 F 69 14 109/69 100
08/28/23 15:27 08/28/23 16:00 08/28/23 16:00 08/28/23 16:00 08/28/23 16:00
I&O
08/27/23 08/28/23 08/29/23
06:59 06:59 06:59
Intake Total 1129.8 / 1369.8 810 / 810 480 / 480
Output Total 975 / 1015 190 / 190 125 / 125
Balance 154.8 / 354.8 620 / 620 355 / 355
[2023-08-28 16:41] LABS: Glucose - Point of Care 141 mg/dl (70-99)
--- NOTE | 2023-08-28 16:50 | PTCARENOTE ---
Mentation improving, pt. ox3; forgetful @ x's but easily reoriented. Appetite also improving. Pt. voided 125mL of conor urine in bedpan @ 1500; PVR 275. Janelle care provided and pt. assisted w mobility in bed to reposition self. Daughter @ bedside
earlier, updated on plan of care. Pt. instructed on how to report care concerns and call ybarra placed w in reach.
[2023-08-28] MEDS: STERILE WATER FOR INJECTION IV (18:10)
[2023-08-28] MEDS: VISBIOME 1 CAP PO (18:32)
--- NOTE | 2023-08-28 20:00 | PTCARENOTE ---
Resumed care of pt laying in bed sleeping. Pt arousable to voice, slow weak voice quality. Pt AAOx2- slightly forgetful. Pt requesting to sleep reports feeling tired. HR in the 50's bradycardic at times, Afib on the monitor with Bigeminy/ frequent
PVC's. HR irreg. POX 94% on RA. Lungs dec t/o shallow. Occ moist cough. + bowel. Pt inc of small brown BM, MASD noted, nathaly care provided. Stage 2 pressure ulcer present, new silacone border foam applied. Large right inguinal hernia noted. NO urine
output, pt bladder scanned for 300ml at this time. +2 pitting B/L LE edema. Doppler pulses present. Heels elevated on pillows. B/L LE dressings intact. Pt repositioned per comfort. Peripheral IV x 3 all capped. Will continue to monitor.
[2023-08-28] MEDS: KEFLEX 500 MG PO (20:44)
[2023-08-28 21:22] LABS: Glucose - Point of Care 141 mg/dl (70-99)
[2023-08-29] VITALS (24 sets, daily range): BP systolic 99–148; BP diastolic 54–90; BMI 18.8
--- NOTE | 2023-08-29 00:35 | PTCARENOTE ---
Pt inc of urine and stool. Janelle care provided. pt repositioned. Pt denies any complaints at this time. Pt having very brief episodes of bradycardia with intermittent pauses on monitor. Vital signs remain stable. No other changes in assessment noted
at this time. Will continue to monitor.
[2023-08-29 04:40] LABS: Hematocrit 30.2 % (37.0-47.0); Hemoglobin 10.3 g/dL (12.0-16.0); Mean Corp Hgb Conc. 34.1 g/dL (33.0-37.0); Mean Corpuscular Hgb 32.4 pg (27.0-31.0); Mean Platelet Volume 12.8 fL (7.4-10.4); Platelet Count 91 10^3/uL (130-400); Red Blood Cell Count 3.18 10^6/uL (4.20-5.40); Red Cell Dist. Width 17.7 % (11.5-14.5); White Blood Cell Count 4.8 10^3/uL (4.8-10.8)
[2023-08-29 05:04] LABS: ALT (SGPT) 396 U/L (0-35); AST (SGOT) 555 U/L (14-36); Alkaline Phosphatase 587 U/L (38-126); Blood Urea Nitrogen 40 mg/dl (7-17); Calcium 9.1 mg/dl (8.4-10.2); Carbon Dioxide 25 mmol/L (22-30); Chloride 112 mmol/L (98-107); Estimated Creatinine Clearance 30 ml/min; Glucose 100 mg/dl (70-99); Potassium 3.5 mmol/L (3.5-5.1); Sodium 145 mmol/L (135-145); Total Bilirubin 1.7 mg/dl (0.2-1.3); Total Protein 5.1 g/dl (6.3-8.2); eGFR 54.53
--- NOTE | 2023-08-29 07:36 | W.PN.HOSP.TC ---
Addendum entered and electronically signed by Ermias Enriquez MD 08/29/23 17:36:
Transaminitis in all probability in relation to Diflucan use
Unable ascertain persistent versus paroxysmal atrial fibrillation
Original Note:
Today's Communication/Plan
-
Transaminitis trending down
Continue to trend LFTs
Continue local therapy with miconazole to groin
Continue cephalexin as per ID
Await cardiology input heart rate management
If cleared can transfer to telemetry
Assessment / Plan
Assessment / Plan
Physical Exam
General: Well Developed, appears underweight and No Apparent Distress
HEENT: Normocephalic, Moist mucous membranes and Atraumatic
Respiratory: Clear to Auscultation Bilaterally
Cardiac: S1/S2 and Irregular Rhythm
GI: Soft, Non Tender, Non Distended and Normal Bowel Sounds
Musculoskeletal: No Cyanosis and No Edema
Skin: Venous stasis dermatitis changes in the lower extremities.
Neuro: Nonfocal/grossly intact
Assessment/Plan
# Sepsis (hypothermia, hypotension) secondary to right groin bacteria intertrigo extending to vagina/bacterial superinfection of fungal intertrigo with possible Candidiasis
# Concern or UTI
# Chronic hypothermia
# Concern for Septic Shock
-Weaned off Dopamine on August 26, 2023
-Maintain goal MAP>65 and HR 60-110
-Status post IV fluids
-Benjamin anderson -- continue as needed to maintain normothermia
-Follow wound culture
-Follow blood and urine cultures
-Status post Cefepime
-Now on Cephalexin
-ID stopped Diflucan due to elevated hepatic transaminases/LFTs today are significantly trending down
-Continue topical Miconazole
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
-ID consulted
-Wound care
-Use purewick to avoid contaminating wounds
-Re-check TFTs to assess if any hypothyroidism in play that is causing her hypothermia
# Bradycardia secondary to hypothermia
-AV kendal agents being held
-EKG showed clear rhythm, heart rate 30s to 40s
-Hold metoprolol
-Asymptomatic
-Treat underlying infection
-Stress dose of hydrocortisone to be given
-TSH normal, a.m. cortisol elevated
# FRANCIS - secondary to shock - on CKD stage II
-Monitor with IV fluids -- patient is tolerating diet so can stop IV fluids soon
-Hold Lasix
# Worsening of chronic transaminitis unclear etiology possibly due to sepsis
-Worsened significantly on August 28, 2023
-Now holding Lipitor as AST/ALT worsened
-Holding any Tylenol as well
-Urgent liver ultrasound/only showed contracted gallbladder
-ID stopped Diflucan
-Consulted gastroenterology, recommendations appreciated
# Anemia
# Mild thrombocytopenia secondary to sepsis
-Continue to monitor
Paroxysmal atrial fibrillation with slow ventricular response
Pauses on Cardiac Monitoring
-Continue Eliquis
-Cardiology to be consulted, recommendations appreciated
-Hold Lopressor for now and all atrioventricular kendal lorraine
-Have been having pauses essentially everyday
-Cardiology consulted, recommendations appreciated
Severe tricuspid regurgitation
-Chest x-ray shows small bilateral pleural effusions mild basilar compressive atelectasis, stable cardiomegaly
Essential hypertension
Pyoderma gangrenosum
-On chronic doxycycline, can hold while on IV antibiotics
-Continue gentamicin topical
-Continue pentoxifylline
Chronic venous insufficiency
-Hold Lasix
Normocytic anemia
-Hemoglobin stable at 11.7
Hypercholesterolemia
-Continue statin
Hypothyroidism
-Continue levothyroxine
Type 2 diabetes
-Insulin sliding scale
Severe protein calorie malnutrition
History of right foot melanoma
Full code
DVT prophylaxis�Eliquis
Diet: IDDSI level 4 Puree diet, thin liquids. Meds crushed in puree. 1:1 assist with meals. Pt has poorly fitting top dentures; Recommending removing dentures prior to feeding and sleep.
Anticipated Discharge: Within 24 hours
Subjective/Interval History
-
Date of Service: August 29, 2023
Patient with some lethargy able to communicate no acute distress seems to be tolerating diet
Objective Data
-
Labs:
Laboratory Results
08/29/23
04:28
WBC 4.8
Hgb 10.3 L
Hct 30.2 L
Plt Count 91 L
Sodium 145
Potassium 3.5
Chloride 112 H
Carbon Dioxide 25
BUN 40 H
Creatinine 1.0
Glucose 100 H
Calcium 9.1
Total Bilirubin 1.7 H
AST 555 H*
ALT 396 H
Alkaline Phosphatase 587 H
Vital Signs:
Vital Signs
Temp Pulse Resp BP Pulse Ox
97.4 F 81 18 138/87 96
08/29/23 03:02 08/29/23 05:04 08/29/23 05:04 08/29/23 05:04 08/29/23 05:04
I&O
08/28/23 08/29/23 08/30/23
06:59 06:59 06:59
Intake Total 810 / 810 520 / 520
Output Total 190 / 190 125 / 125
Balance 620 / 620 395 / 395
Review of Systems
-
History Source: Patient
Constitutional: Reports Weight Loss
EENT: Reports No Symptoms Reported
Respiratory: Reports No Symptoms
Cardiac: Reports No Symptoms
Skin: Reports Rash and Sores
Physical Exam
-
General: Appears Chronically Ill and Cachectic
HEENT: Normocephalic
Respiratory: Clear to Auscultation
Cardiac: Irregular Rhythm (Irregular and frequent ectopic)
GI: Soft
Skin: Warm
Psych: Calm
Data Reviewed
-
Total Time Spent with Patient (in minutes): 67
Ultrasound: Report Reviewed by me (Ultrasound of the liver and gallbladder contracted only finding)
Medical Tests (Nuc Med, Echo etc): Image personally visualized and interpreted and Report Reviewed by me
Labs: Labs Reviewed by me (LFTs significantly trending down to 500)
[2023-08-29 07:56] LABS: Glucose - Point of Care 79 mg/dl (70-99)
--- NOTE | 2023-08-29 08:28 | W.PN.CARDCBS ---
Today's Communication / Plan
-
Doing better, without substantial pauses
Continue to hold metoprolol and atorvastatin
Check proBNP, consider furosemide
Okay to telemetry from my standpoint
Impression / Plan
-
Primary Interface Designer: Dr. Jeanie Rollins
Assessment:
Presentation with R groin infection
Sepsis
Hypothermia
Bradycardia secondary to above, improved
Frequent PVCs at times in pattern of bigeminy
FRANCIS on CKD
Acute on chronic transaminitis
mild thrombocytopenia
Persistent atrial fibrillation/flutter
Chronic Eliquis therapy
chronic diastolic congestive heart failure
Mitral regurgitation
Hypertension
Hyperlipidemia
Hypothyroidism
DM2
CKD
Secondary pulmonary hypertension
Peripheral vascular disease/chronic venous insufficiency
Bilateral lower extremity wounds
Pyoderma gangrenosum, on chronic doxycycline
ECHO 04/26/2023: EF 60 to 65%, mild LVH, small LV, MAC, mild MR, dilated left atrium, aortic sclerosis, dilated right atrium, severe TR, PAP 25 to 30 mmHg
Plan:
From the standpoint of atrial fibrillation with pauses, she is improved. She still having nocturnal pauses but these are now roughly 2 seconds. Frequently in ventricular bigeminy, which is acceptable and for which we will not treat.
With improvement in basal heart rate, currently 80, need for pacemaker does not exist
She is still on midodrine and off dopamine.
Would permanently discontinue metoprolol.
Her LFTs are markedly improved, possibly shock liver related to infection? Defer to hospitalist. Will continue to hold statin, utility in what is primary prevention is unclear.
FRANCIS is improved.
Volume status seems fairly reasonable, could be volume overloaded. Check proBNP consider furosemide.
From my standpoint could be transferred to telemetry
Progress Note - Interface Designer
Subjective
Date of Service: August 29, 2023:
No complaints, pleasantly confused
Allergies: Erythromycin, penicillin, vancomycin
Home meds: Atorvastatin, doxycycline, Eliquis 2.5 twice daily, furosemide 20 mg a day, Synthroid, metoprolol ER 12.5 twice daily, pentoxifylline
Inpatient Meds apixaban 2.5 twice daily, levothyroxine 50 mcg a day, Trental 400 mg twice daily, insulin, midodrine 10 mg 3 times daily, cephalexin
PMH/PSH/FH/SH: Reviewed
Review of systems: Negative except as above
Hemoglobin 10.3, white count 4.3, platelets 91, BUN and creatinine 40 and 1.0, potassium 3.5, AST 555, ALT 396, AST had been 1044, TSH and cortisol were normal, platelets have been 128 never had proBNP or troponin
ECG from with slow ventricular response, septal [place] and nonspecific ST and T wave changes
Objective
Labs:
08/29/23 04:28
08/29/23 04:28
Labs
Hgb 10.3 g/dL (12.0-16.0) L 08/29/23 04:28
Hct 30.2 % (37.0-47.0) L 08/29/23 04:28
Plt Count 91 10^3/uL (130-400) L 08/29/23 04:28
PT 15.5 Sec (11.4-14.6) H 08/25/23 05:04
INR 1.23 08/25/23 05:04
APTT 40.9 Sec (23.4-35.0) H 08/25/23 05:04
Sodium 145 mmol/L (135-145) 08/29/23 04:28
Potassium 3.5 mmol/L (3.5-5.1) 08/29/23 04:28
BUN 40 mg/dl (7-17) H 08/29/23 04:28
Creatinine 1.0 mg/dL (0.6-1.0) 08/29/23 04:28
Glucose 100 mg/dl (70-99) H 08/29/23 04:28
Vital Signs and I&O:
Vital Signs
Temp Pulse Resp BP Pulse Ox
36.2 C 81 18 138/87 96
08/29/23 07:51 08/29/23 05:04 08/29/23 05:04 08/29/23 05:04 08/29/23 05:04
Vital Signs
Temp Pulse Resp BP Pulse Ox
36.2 C 81 18 138/87 96
08/29/23 07:51 08/29/23 05:04 08/29/23 05:04 08/29/23 05:04 08/29/23 05:04
Intake & Output
08/27/23 08/28/23 08/29/23 08/30/23
07:59 07:59 07:59 07:59
Intake Total 1263.0 / 1263.0 570 / 570 520 / 520
Output Total 985 / 1010 150 / 150 125 / 125
Balance 278.0 / 253.0 420 / 420 395 / 395
Physical Exam
Physical Exam
Weight is 48.5 kg
frail, cachectic,
Head neck exam unremarkable
Chest kyphoscoliosis
Lungs clear
Cardiac soft systolic murmur, JVD okay
Abdomen benign
Jamar wrap on legs, 1+ edema, erythema,
Neuro mildly confused pleasant, nonfocal
[2023-08-29] MEDS: ELIQUIS 2.5 MG PO ×2 (08:32→20:39)
[2023-08-29] MEDS: NOVOLOG FLEXPEN-LOW RESISTANCE SC ×3 (08:32→16:53)
[2023-08-29] MEDS: ProAmatine 10 MG PO ×3 (08:33→17:25)
[2023-08-29] MEDS: KEFLEX 500 MG PO ×2 (08:33→20:39)
[2023-08-29] MEDS: SYNTHROID 50 MCG PO (08:34)
[2023-08-29] MEDS: TRENTAL 400 MG PO ×2 (08:34→20:39)
[2023-08-29] MEDS: DESENEX/MITRAZOL/ZEASORB 1 APPLIC TOPICAL ×2 (08:34→20:39)
[2023-08-29] MEDS: VITAMIN D3 (cholecalciferol) 50 MCG PO (08:34)
--- NOTE | 2023-08-29 10:43 | W.PN.ID1 ---
Date of Service
Date of Service: August 29, 2023
Today's Communication
Continue cephalexin 500mg bid through 08/30/23.
Assessment / Plan
# Hypotension, resolved; weaned off of pressors
# Hypothermia
- Blood cx's neg to date
- CXR neg.
- Ucx with Klebsiella
- Continue cephalexin 500mg bid through 08/30/23.
# Transaminitis - trending down off fluconazole.
# Perineum/inguinal candidiasis
-improving
-s/p fluconazole x 3 doses.
- Continue topical miconazole.
# RLE pyoderma gangrenosum
- no sign of infection
#Additional Past Medical History:
DM2
HTN
HLD
pafib
severe TR
hypothyroidism
hypothermia
Lymphedema
venous insufficiency
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
right foot melanoma
severe protein-calorie malnutrition
Chief Complaint
-: Other (Bacteriuria)
Subjective / Review of Systems
Feeling better.
Vital Signs / Physical Exam
Vital Signs
Vital Signs
Temp Pulse Resp BP Pulse Ox
97.1 F 73 18 137/77 96
08/29/23 07:51 08/29/23 08:33 08/29/23 05:04 08/29/23 08:33 08/29/23 05:04
Physical Exam
Constitutional: No Acute Distress and Comfortable
Pulmonary: Clear
Gastrointestinal: Soft, Non Tender and Non Distended
Skin: Other (bilataral inguinal erythema decreased,)
Neurological: AO x 3
Objective Data
Lab Data
Lab Results
08/29/23 04:28
08/29/23 04:28
PT 15.5 Sec (11.4-14.6) H 08/25/23 05:04
INR 1.23 08/25/23 05:04
APTT 40.9 Sec (23.4-35.0) H 08/25/23 05:04
Estimated Creat Clear 30 ml/min 08/29/23 04:28
Lactic Acid 1.3 mmol/L (0.7-2.0) 08/24/23 20:08
Total Bilirubin 1.7 mg/dl (0.2-1.3) H 08/29/23 04:28
AST 555 U/L (14-36) H* 08/29/23 04:28
ALT 396 U/L (0-35) H 08/29/23 04:28
Alkaline Phosphatase 587 U/L (38-126) H 08/29/23 04:28
Most recent labs reviewed.
Micro Results:
08/24/23 20:08 Blood Culture - Preliminary
Blood/Venous No Growth in 4 days- Final report to follow
08/24/23 20:08 Blood Culture - Preliminary
Blood/Venous No Growth in 4 days- Final report to follow
08/24/23 21:08 Urine Culture - Final
Urine Klebsiella pneumoniae
08/24/23 20:08 Wound Culture - Final
Groin - Right Klebsiella pneumoniae
Diptheroids
Gram Stain - Final
08/24/23 CXR: No active cardiopulmonary disease.
--- NOTE | 2023-08-29 10:46 | CM ---
Addendum entered by Estefani Hwang 08/29/23 11:53:
Spoke with patient daughter who confirmed that they are looking into assistance from Home health care but family is open to SNF at [facility] if needed.
Original Note:
Patient seen at bedside. PT/OT recommending SNF as of 08/26/23. Patient plan continues to be home with VN and increasing aides from [facility]. Patient for possible transfer out of ICU . Patient stated that CM could call to her daughter to
review discharge plan. CM called to patient daughter Lisa and VM left. CM will continue to follow for discharge planning needs.
Plan; discharge needs SNF; patient wants home with VN and aides.
[2023-08-29 12:06] LABS: Glucose - Point of Care 130 mg/dl (70-99)
--- NOTE | 2023-08-29 14:30 | PN.CDI ---
CDI
- -
CDI:
Physician Documentation Request
Admit Date: 08/24/23 22:43
Dear Doctor Zoe,
Please review the following and provide your response in the progress notes.
Clinical Indicators:
Pt admitted with sepsis /septic shock 2/2 UTI/right groin infection /FRANCIS on CKD 2
There is potentially conflicting documentation regarding the type of atrial fibrillation
Documented per H&P and progress notes , ' Paroxysmal atrial fibrillation with slow ventricular response...'
Documented per cardiology consul and notes,' Persistent atrial fibrillation/flutter Chronic Eliquis therapy ...'
If possible, please provide further specificity regarding atrial fibrillation, such as:
Persistent atrial fibrillation - episodes of continuous AF that last more than 7 days and do not self-terminate
Paroxysmal atrial fibrillation - terminates spontaneously or with intervention within 7 days of onset
Other - please specify
Use of terms such as suspected, likely, concern for, or probable (associated with a specific diagnosis that is being evaluated, monitored, or treated as if it exists) are acceptable and can be coded in the inpatient setting, when documented at the
time of discharge.
Thank you,
Tessa Del Rio RN
CDI Specialist
[place] [facility]
Please use your independent medical judgment in providing your response.
--- NOTE | 2023-08-29 14:36 | PN.CDI ---
CDI
- -
CDI:
Physician Documentation Request
Admit Date: 08/24/23 22:43
Dear Doctor Zoe,
Please review the following and provide your response in the progress notes.
Clinical Indicators:
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
Documented per WOCN note 08/24, ' Stage 1 sacrum and bilateral heels. ...L leg dressing changed using Xeroform and silicone foam. R leg wound Xeroform, alginate, and silicone foam...'
Physician documentation of the type and location of wounds is required for compliant documentation. Based on the above clinical findings and your assessment, please provide the following in your progress note:
1. Location of the ulcer/wound, including laterality.
2. Type (etiology) of ulcer/wound:
- Pressure (decubitus) ulcer
- Non-pressure ulcer
- Other
Use of terms such as suspected, likely, concern for, or probable (associated with a specific diagnosis that is being evaluated, monitored, or treated as if it exists) are acceptable and can be coded in the inpatient setting, when documented at the
time of discharge.
Thank you,
Tessa Del Rio RN
CDI Specialist
[place] Text
Please use your independent medical judgment in providing your response.
*Source: National Pressure Ulcer Advisory Panel (NPUAP)
--- NOTE | 2023-08-29 14:40 | PN.CDI ---
CDI
- -
CDI:
Physician Documentation Request
Admit Date: 08/24/23 22:43
Dear Doctor Zoe,
Please review the following and provide your response in the progress notes.
Clinical Indicators:
Pt admitted with sepsis /septic shock 2/2 UTI/right groin infection /FRANCIS on CKD 2
Progress note 08/25, ' Worsening of chronic transaminitis unclear etiology possibly due to sepsis-Continue to monitor..'
Progress note 08/28, ' Worsening of chronic transaminitis unclear etiology possibly due to sepsis..Worsened significantly on August 28, 2023 Now holding Lipitor as AST/ALT worsened Holding any Tylenol as well...'
Trended Liver functions below
08/24/23 08/25/23 08/26/23
20:08 05:04 05:54
AST 148 H 122 H 100 H
ALT 144 H 132 H 102 H
08/27/23 08/28/23 08/29/23
03:25 06:10 04:28
AST 145 H 1044 H* 555 H*
ALT 105 H 530 H* 396 H
Based on the above, could you clarify in the progress notes, the appropriate diagnosis, if significant, that supports the above abnormalities and additional evaluation, monitoring and/or treatment rendered:
Shock liver
Worsening of chronic transaminitis- only
Other
Use of terms such as suspected, likely, concern for, or probable (associated with a specific diagnosis that is being evaluated, monitored, or treated as if it exists) are acceptable and can be coded in the inpatient setting, when documented at the
time of discharge.
Thank you,
Tessa Del Rio RN
CDI Specialist
[place] Text
Please use your independent medical judgment in providing your response.
[2023-08-29 17:03] LABS: Glucose - Point of Care 132 mg/dl (70-99)
[2023-08-29] MEDS: VISBIOME 1 CAP PO (17:26)
--- NOTE | 2023-08-29 18:05 | PTCARENOTE ---
Patient received in AM with assessment as noted. Continues alert and oriented with a flat affect. Controlled A-fib with ventricular bigeminy on monitor. B/P's stable. Afebrile. Lungs decreased through out, otherwise CTA. Sao2 98% on 2lnc. Appetite
poor. Had a moderate sized lose brown bowel movement today. Patient had not voided as of 1600 and was bladder scanned for 221 ml but because of her inguinal hernia it was difficult to determine if the amount was accurate. Subsequently I straight
cathed her for 375 ml of cloudy conor urine. Her daughter was into visit and updated to patient condition. Patient currently in bed with call ybarra in reach.
[2023-08-29 23:43] LABS: Glucose - Point of Care 152 mg/dl (70-99)
[2023-08-30] VITALS (20 sets, daily range): BP systolic 95–150; BP diastolic 56–90; PULSE 74; O2SAT 92; BMI 18.6
[2023-08-30 05:05] LABS: Hemoglobin 10.6 g/dL (12.0-16.0); Mean Corp Hgb Conc. 33.1 g/dL (33.0-37.0); Mean Corpuscular Hgb 31.9 pg (27.0-31.0); Mean Corpuscular Volume 96.4 fL (81.0-99.0); Mean Platelet Volume 12.9 fL (7.4-10.4); Platelet Count 105 10^3/uL (130-400); Red Blood Cell Count 3.32 10^6/uL (4.20-5.40); Red Cell Dist. Width 17.9 % (11.5-14.5); White Blood Cell Count 5.8 10^3/uL (4.8-10.8)
[2023-08-30 05:42] LABS: ALT (SGPT) 305 U/L (0-35); AST (SGOT) 320 U/L (14-36); Alkaline Phosphatase 537 U/L (38-126); Blood Urea Nitrogen 37 mg/dl (7-17); Carbon Dioxide 24 mmol/L (22-30); Chloride 114 mmol/L (98-107); Estimated Creatinine Clearance 33 ml/min; Glucose 131 mg/dl (70-99); Sodium 142 mmol/L (135-145); Total Bilirubin 1.4 mg/dl (0.2-1.3); Total Protein 5.2 g/dl (6.3-8.2); eGFR > 60.00
--- NOTE | 2023-08-30 06:56 | W.PN.HOSP.TC ---
Addendum entered and electronically signed by Ermias Enriquez MD 08/31/23 12:48:
Sacral decubitus stage I pressure ulcer also bilateral heels stage I pressure ulcers
Original Note:
Today's Communication/Plan
-
Okay for transfer to telemetry
Paues less frequent
Continue aspiration precautions and modified diet
Remains weak and deconditioned and will need rehab as needs maximal assistance
Poor appetite continues
Today's last day of cephalexin as per ID has been doxycycline prophylaxis for pyoderma
Resume confer with ID
Assessment / Plan
Assessment / Plan
Physical Exam
General: Well Developed, appears underweight and No Apparent Distress/weak and deconditioned/poor appetite
HEENT: Normocephalic, Moist mucous membranes and Atraumatic
Respiratory: Clear to Auscultation Bilaterally
Cardiac: S1/S2 and Irregular Rhythm
GI: Soft, Non Tender, Non Distended and Normal Bowel Sounds
Musculoskeletal: No Cyanosis and No Edema
Skin: Venous stasis dermatitis changes in the lower extremities.
Neuro: Nonfocal/grossly intact
Assessment/Plan
# Sepsis (hypothermia, hypotension) secondary to right groin bacteria intertrigo extending to vagina/bacterial superinfection of fungal intertrigo with possible Candidiasis
# Concern or UTI
# Chronic hypothermia
# Concern for Septic Shock
-Weaned off Dopamine on August 26, 2023
-Maintain goal MAP>65 and HR 60-110
-Status post IV fluids
-Benjamin anderson -- continue as needed to maintain normothermia
-Follow wound culture
-Follow blood and urine cultures
-Status post Cefepime
-Now on Cephalexin August 29 last course of therapy
-ID stopped Diflucan due to elevated hepatic transaminases/LFTs today are significantly trending down
-Continue topical Miconazole
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
-ID consulted
-Wound care
-Use purewick to avoid contaminating wounds
-Re-check TFTs to assess if any hypothyroidism in play that is causing her hypothermia
# Bradycardia secondary to hypothermia
-AV kendal agents being held
-EKG showed clear rhythm, heart rate 30s to 40s
-Hold metoprolol
-Asymptomatic
-Treat underlying infection
-Stress dose of hydrocortisone to be given
-TSH normal, a.m. cortisol elevated
# FRANCIS - secondary to shock - on CKD stage II
-Monitor with IV fluids -- patient is tolerating diet so can stop IV fluids soon
-Hold Lasix
# Worsening of chronic transaminitis unclear etiology possibly due to sepsis versus Diflucan which has been discontinued
-Worsened significantly on August 28, 2023/now showing steady improvement daily continue to monitor
-Holding any Tylenol as well
-Urgent liver ultrasound/only showed contracted gallbladder
-ID stopped Diflucan
# Anemia
# Mild thrombocytopenia secondary to sepsis
-Continue to monitor
Paroxysmal atrial fibrillation with slow ventricular response
Pauses on Cardiac Monitoring
-Continue Eliquis
-Cardiology to be consulted, recommendations appreciated
-Hold Lopressor for now and all atrioventricular kendal lorraine
-Have been having pauses essentially everyday
-Cardiology consulted, recommendations appreciated
Severe tricuspid regurgitation
-Chest x-ray shows small bilateral pleural effusions mild basilar compressive atelectasis, stable cardiomegaly
Essential hypertension
Pyoderma gangrenosum
-On chronic doxycycline, can hold while on IV antibiotics
-Continue gentamicin topical
-Continue pentoxifylline
Chronic venous insufficiency
-Hold Lasix
Normocytic anemia
-Hemoglobin stable at 11.7
Hypercholesterolemia
-Continue statin
Hypothyroidism
-Continue levothyroxine
Type 2 diabetes
-Insulin sliding scale
Severe protein calorie malnutrition
History of right foot melanoma
Full code
DVT prophylaxis�Eliquis
Diet: IDDSI level 4 Puree diet, thin liquids. Meds crushed in puree. 1:1 assist with meals. Pt has poorly fitting top dentures; Recommending removing dentures prior to feeding and sleep.
Anticipated Discharge: 24 - 48 hours
Subjective/Interval History
-
Date of Service: August 30, 2023
In no distress off oxygen/speech therapy and patient only took less than 25% of meal poor appetite
Objective Data
-
Labs:
Laboratory Results
08/30/23
04:39
WBC 5.8
Hgb 10.6 L
Hct 32.0 L
Plt Count 105 L
Sodium 142
Potassium 4.0
Chloride 114 H
Carbon Dioxide 24
BUN 37 H
Creatinine 0.9
Glucose 131 H
Calcium 9.0
Total Bilirubin 1.4 H
AST 320 H
ALT 305 H
Alkaline Phosphatase 537 H
Vital Signs:
Vital Signs
Temp Pulse Resp BP Pulse Ox
97.9 F 75 18 115/56 93
08/30/23 03:15 08/30/23 06:00 08/30/23 06:00 08/30/23 03:00 08/30/23 06:00
I&O
08/28/23 08/29/23 08/30/23
06:59 06:59 06:59
Intake Total 810 / 810 520 / 520 240 / 240
Output Total 190 / 190 125 / 125 375 / 375
Balance 620 / 620 395 / 395 -135 / -135
Review of Systems
-
Unable to obtain full review of systems at this time due to: Dementia
History Source: Patient
Constitutional: Reports No Appetite, Fatigue and Weakness
Respiratory: Reports Cough
Cardiac: Reports No Symptoms
Physical Exam
-
General: No Apparent Distress
HEENT: Normocephalic
Respiratory: Clear to Auscultation
Cardiac: Regular Rhythm
GI: Soft, Nontender and Nondistended
Neuro: Awake
Psych: Confused
Data Reviewed
-
Total Time Spent with Patient (in minutes): 56
Labs: Labs Reviewed by me
--- NOTE | 2023-08-30 07:46 | W.PN.CARDCBS ---
Today's Communication / Plan
-
Continue to follow on telemetry
Check proBNP
Continue midodrine
Continue antibiotic
Likely restart oral Lasix soon
Impression / Plan
-
Primary Paper Machine Operator: Dr. Jeanie Rollins
Assessment:
Presentation with R groin infection
Sepsis
Hypothermia
Bradycardia secondary to above, improved
Frequent PVCs at times in pattern of bigeminy
FRANCIS on CKD
Acute on chronic transaminitis
mild thrombocytopenia
Persistent atrial fibrillation/flutter
Chronic Eliquis therapy
chronic diastolic congestive heart failure
Mitral regurgitation
Hypertension
Hyperlipidemia
Hypothyroidism
DM2
CKD
Secondary pulmonary hypertension
Peripheral vascular disease/chronic venous insufficiency
Bilateral lower extremity wounds
Pyoderma gangrenosum, on chronic doxycycline
ECHO 04/26/2023: EF 60 to 65%, mild LVH, small LV, MAC, mild MR, dilated left atrium, aortic sclerosis, dilated right atrium, severe TR, PAP 25 to 30 mmHg
Plan:
Still has some 2 to 3-second pauses at night but these are overall stable. Remain off metoprolol.
Cont midodrine and off dopamine.
Would permanently discontinue metoprolol.
Her LFTs continue to improve possibly shock liver related to infection? Defer to hospitalist. Will continue to hold statin, utility in what is primary prevention is unclear.
Weight is overall up. Will check proBNP. Likely will need to resume oral Lasix soon.
Continue antibiotics for groin infection.
Progress Note - Paper Machine Operator
Subjective
Date of Service: August 30, 2023
resting in bed. no dizziness
Objective
Labs:
08/30/23 04:39
08/30/23 04:39
Labs
Hgb 10.6 g/dL (12.0-16.0) L 08/30/23 04:39
Hct 32.0 % (37.0-47.0) L 08/30/23 04:39
Plt Count 105 10^3/uL (130-400) L 08/30/23 04:39
PT 15.5 Sec (11.4-14.6) H 08/25/23 05:04
INR 1.23 08/25/23 05:04
APTT 40.9 Sec (23.4-35.0) H 08/25/23 05:04
Sodium 142 mmol/L (135-145) 08/30/23 04:39
Potassium 4.0 mmol/L (3.5-5.1) 08/30/23 04:39
BUN 37 mg/dl (7-17) H 08/30/23 04:39
Creatinine 0.9 mg/dL (0.6-1.0) 08/30/23 04:39
Glucose 131 mg/dl (70-99) H 08/30/23 04:39
Vital Signs and I&O:
Vital Signs
Temp Pulse Resp BP Pulse Ox
97.9 F 75 18 115/56 93
08/30/23 03:15 08/30/23 06:00 08/30/23 06:00 08/30/23 03:00 08/30/23 06:00
Vital Signs
Temp Pulse Resp BP Pulse Ox
97.9 F 75 18 115/56 93
08/30/23 03:15 08/30/23 06:00 08/30/23 06:00 08/30/23 03:00 08/30/23 06:00
Intake & Output
08/28/23 08/29/23 08/30/23 08/31/23
06:59 06:59 06:59 06:59
Intake Total 810 / 810 520 / 520 240 / 240
Output Total 190 / 190 125 / 125 375 / 375
Balance 620 / 620 395 / 395 -135 / -135
Physical Exam
Physical Exam
GEN: No distress, awake,
HEENT: supple, anicteric, mmm
LUNGS: scatt rhonchi
CV: irreg, S1/S2, 1/6 syst LSB, no gallop
ABD: soft, BS+, NT/ND
EXT: No edema
NEURO: Gross non-focal
SKIN: groin dressing intact
[2023-08-30 08:09] LABS: Glucose - Point of Care 146 mg/dl (70-99)
[2023-08-30] MEDS: VITAMIN D3 (cholecalciferol) 50 MCG PO (08:17)
[2023-08-30] MEDS: TRENTAL 400 MG PO ×2 (08:17→19:32)
[2023-08-30] MEDS: ELIQUIS 2.5 MG PO ×2 (08:18→19:32)
[2023-08-30] MEDS: KEFLEX 500 MG PO ×2 (08:18→19:32)
[2023-08-30] MEDS: ProAmatine 10 MG PO ×3 (08:18→17:22)
[2023-08-30] MEDS: NOVOLOG FLEXPEN-LOW RESISTANCE SC ×2 (08:22→12:03)
[2023-08-30] MEDS: SYNTHROID 50 MCG PO (08:23)
[2023-08-30] MEDS: DESENEX/MITRAZOL/ZEASORB 1 APPLIC TOPICAL ×2 (08:23→19:32)
--- NOTE | 2023-08-30 09:58 | W.PN.ID1 ---
Date of Service
Date of Service: August 30, 2023
Today's Communication
Last day of cephalexin 500mg bid through 08/30/23.
Tomorrow, can resume prophylactic doxycycline 50mg qd, as per derm.
ID will sign off.
Assessment / Plan
# Hypotension, resolved; weaned off of pressors
# Hypothermia, resolved
- Blood cx's neg to date
- CXR neg.
- Ucx with Klebsiella
- Last day of cephalexin 500mg bid through 08/30/23.
# Acute on chronic transaminitis - continues to improve off fluconazole.
# Perineum/inguinal candidiasis
-improving
-s/p fluconazole x 3 doses.
- Continue topical miconazole.
# RLE pyoderma gangrenosum
- no sign of infection
- Tomorrow, can resume prophylactic doxycycline 50mg qd, as per derm.
ID will sign off.
#Additional Past Medical History:
DM2
HTN
HLD
pafib
severe TR
hypothyroidism
hypothermia
Lymphedema
venous insufficiency
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
right foot melanoma
severe protein-calorie malnutrition
Chief Complaint
-: Other (Bacteriuria)
Subjective / Review of Systems
No new complaints
Vital Signs / Physical Exam
Vital Signs
Vital Signs
Temp Pulse Resp BP Pulse Ox
98.4 F 73 18 124/66 93
08/30/23 08:26 08/30/23 09:00 08/30/23 09:00 08/30/23 09:00 08/30/23 09:00
Physical Exam
Constitutional: Comfortable
Gastrointestinal: Soft, Non Tender and Non Distended
Skin: Other (bilateral groin erythema darker and decreased.)
Objective Data
Lab Data
Lab Results
08/30/23 04:39
08/30/23 04:39
PT 15.5 Sec (11.4-14.6) H 08/25/23 05:04
INR 1.23 08/25/23 05:04
APTT 40.9 Sec (23.4-35.0) H 08/25/23 05:04
Estimated Creat Clear 33 ml/min 08/30/23 04:39
Lactic Acid 1.3 mmol/L (0.7-2.0) 08/24/23 20:08
Total Bilirubin 1.4 mg/dl (0.2-1.3) H 08/30/23 04:39
AST 320 U/L (14-36) H 08/30/23 04:39
ALT 305 U/L (0-35) H 08/30/23 04:39
Alkaline Phosphatase 537 U/L (38-126) H 08/30/23 04:39
Most recent labs reviewed.
Micro Results:
08/24/23 20:08 Blood Culture - Final
Blood/Venous No Growth - Final Report
08/24/23 20:08 Blood Culture - Final
Blood/Venous No Growth - Final Report
08/24/23 21:08 Urine Culture - Final
Urine Klebsiella pneumoniae
08/24/23 20:08 Wound Culture - Final
Groin - Right Klebsiella pneumoniae
Diptheroids
Gram Stain - Final
08/24/23 CXR: No active cardiopulmonary disease.
[2023-08-30 10:12] LABS: NT-proBNP 7020 pg/ml
[2023-08-30 12:01] LABS: Glucose - Point of Care 101 mg/dl (70-99)
--- NOTE | 2023-08-30 12:18 | PTOTSP ---
Speech Therapy
More alert and tolerating advanced textures.
Recommend
1. Advance to regular solids and continue Thin Liquids
2. Upright with intake
3. Meds as tolerated.
ST will follow to determine diet tolerance and make adjustments if needed prior to signing off.
--- NOTE | 2023-08-30 12:46 | CM ---
CM following re: discharge planning.
Discussed in Rounds, reviewed pt's chart, met with pt. Per Rounds meeting, today's last day of cephalexin, continue supportive care, will need SNF due to being deconditioned and requires max assistance with transfer.
PT and OT evaluations noted - SNF level of care recommended. [facility] ([place] has accepted the pt based on bed availability on the day of discharge. CM to call [facility] to check a bed availability tomorrow morning. Per MD pt most likely will be ready
for discharge tomorrow.
Pt's daughter is working with [facility] [place] to set up caregiver services.
D/C plan: [facility] when medically stable. Pt will need an auth from [facility].
CM will follow to assist pt with discharge to [facility] for a short term rehab.
[2023-08-30] MEDS: NOVOLOG FLEXPEN-LOW RESISTANCE 3 UNITS SC (17:04)
[2023-08-30 17:07] LABS: Glucose - Point of Care 298 mg/dl (70-99)
--- NOTE | 2023-08-30 17:08 | PTCARENOTE ---
Patient received in AM with assessment as noted. Continues awake and alert, occasionally forgetful but easily reorients. OOB to chair from [id number] and transfers with 1 person minimal assist. Ambulated in the hallway with PT today. Controlled A-fib
with PVC's on monitor. Afebrile. B/P's stable. Sao2 95% on room air. Seen by Speech and advanced to a regular diet with thin liquids. Appetite has improved with the new diet and she ate 40% of lunch. Incontinent for a small amount of loose brown
stool today. Voiding conor urine. Daughter into visit and updated to patient condition. For transfer to [place] [id number] when the bed is cleaned. Report to be called.
[2023-08-30] MEDS: VISBIOME 1 CAP PO (17:22)
--- NOTE | 2023-08-30 19:01 | PTCARENOTE ---
Patient for transfer to [place] [id number]. Report called to [facility] mold shifter nurse with patient to be transferred via bed to her new room by ICU night staff. All other assessment data as previously noted.
--- NOTE | 2023-08-30 19:41 | PTCARENOTE ---
VSS, 2000 meds given, pt for tx to 408-1.
--- NOTE | 2023-08-30 20:20 | PTCARENOTE ---
Patient received from ICU in bed with all belongings. Patient AAOx3, VSS. Patient made comfortable and oriented to the room. Patient ate over 50% of her dinner. Call ybarra is within reach.
[2023-08-30 20:27] LABS: Glucose - Point of Care 135 mg/dl (70-99)
[2023-08-31 03:48] VITALS: BP 133/78
[2023-08-31] MEDS: SYNTHROID 50 MCG PO (05:33)
[2023-08-31 06:00] VITALS: BMI 19.0
[2023-08-31 06:27] LABS: ALT (SGPT) 224 U/L (0-35); AST (SGOT) 161 U/L (14-36); Alkaline Phosphatase 505 U/L (38-126); Blood Urea Nitrogen 33 mg/dl (7-17); Carbon Dioxide 26 mmol/L (22-30); Chloride 111 mmol/L (98-107); Estimated Creatinine Clearance 33 ml/min; Glucose 88 mg/dl (70-99); Potassium 3.6 mmol/L (3.5-5.1); Sodium 141 mmol/L (135-145); Total Bilirubin 1.4 mg/dl (0.2-1.3); Total Protein 5.4 g/dl (6.3-8.2); eGFR > 60.00
[2023-08-31 07:41] LABS: Glucose - Point of Care 82 mg/dl (70-99)
[2023-08-31] MEDS: NOVOLOG FLEXPEN-LOW RESISTANCE SC ×2 (08:32→13:10)
[2023-08-31] MEDS: ProAmatine 10 MG PO ×2 (08:39→13:11)
[2023-08-31] MEDS: VITAMIN D3 (cholecalciferol) 50 MCG PO (08:39)
[2023-08-31] MEDS: TRENTAL 400 MG PO (08:39)
[2023-08-31] MEDS: ELIQUIS 2.5 MG PO (08:39)
[2023-08-31] MEDS: DESENEX/MITRAZOL/ZEASORB 1 APPLIC TOPICAL (08:42)
[2023-08-31] MEDS: VIBRAMYCIN 50 MG PO (08:53)
[2023-08-31 11:03] VITALS: BP 135/71; PULSE 51; O2SAT 99
[2023-08-31 11:42] VITALS: BP 127/81
[2023-08-31 13:06] LABS: Glucose - Point of Care 128 mg/dl (70-99)
[2023-08-31] MEDS: LASIX 20 MG PO (13:11)
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
--- NOTE | 2023-08-31 14:16 | CM ---
CM reviewed chart and noted dc order
CM confirmed SNF at [place] and obtained [facility] auth
Bedside up to pt and call to deja/Lisa
IMM verbally reviewed with pt- copy provided
Medical necessity and transport forms on chart
[facility] SNF# [id number] level I
7 days 08/30-09/05
[facility] #[id number]
Discharge Disposition- [facility] via Acute Care BLS (1400 pickup)
Phone- [phone] 2nd floor Fax- [phone]
[2023-08-31] MEDS: KLOR-CON 20 MEQ PO (14:50)
--- NOTE | 2023-08-31 15:15 | WOUNDNOTE ---
LEFT LOWER LEG
[2023-08-31 15:20] VITALS: BP 114/63
--- NOTE | 2023-08-31 15:22 | W.DCSUMMARY ---
Discharge Summary
Discharge Data
Date of Admission: 08/24/23
Date of Discharge: 08/31/23
-
Pending Results: No
Hospital Course
87-year-old female presented to ED in a week and states generally deconditioned and poorly nourished with severe protein calorie malnutrition by history and presented with also underlying diabetes mellitus hypertension hyperlipidemia paroxysmal
atrial fibrillation severe tricuspid regurgitation and present state of hypothermia and hypotension with apparent presentation also of a infected area of the perineum and consistent with inguinal candidiasis by inspection. She has a history of
longstanding right lower extremity pyoderma gangrenosum but presented in that area with no signs of infection and was been maintained on doxycycline 50 mg daily she was admitted to the ICU with a presentation of hypotension and hypothermia. Chest
x-ray was negative blood cultures turned out negative throughout course of admission however urine culture grew out Klebsiella she was placed on empiric antibiotic coverage with a combination of wide spectrum antibiotics and also started on empiric
fluconazole unfortunately fluconazole may have instigated a state of acute transaminitis necessitating its discontinuation in favor of topical Altaf miconazole to the area of the perineum and inguinal candidiasis. Acute on chronic transaminitis
slowly improved however she has persisting elevation in alkaline phosphatase which is apparently been on a chronic basis. She finally finished her last course of cephalexin on 29 August but remains quite deconditioned infirm and with underlying
severe protein calorie malnutrition and deconditioning is felt that the patient would best be served with a acute rehab stay. In addition to the infectious disease service she was seen by the cardiology service be noting frequent PVCs and pauses
that necessitated discontinuation of her chronotropic medications she had been on prior she remains on chronic Eliquis therapy in the setting of her persistent atrial fibrillation. She was resumed back on furosemide low-dose p.o. diuresis prior to
her discharge. It is felt by cardiology that her prior dosing of outpatient Lopressor should be permanently discontinued/
Discharge Plan
-
Patient Disposition: Long-Term/SNF
Discharge Diagnosis/Procedures: Right groin infection
Acute transaminitis from Diflucan
Chronic transaminitis and alk phosphatase elevation
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
Persistent atrial fibrillation
Chronic congestive heart failure
Diet: Restrict fluids to 48 oz
Activity: As tolerated
Activity Restrictions/Additional Instructions:
Wound Care Instructions L leg: clean with saline or Vashe- Xeroform and silicone foam change q other day and prn drainage.
R leg: clean with saline or Vashe- skin prep periwound, Xeroform, alginate, and 6x6 silicone border foam. Change daily and prn drainage.
Right Groin- Clean with saline or soap and water. Apply Desenex powder and ABD BID and PRN if loose or soiled
Sacrum/left buttock- Gently clean with normal saline or soap and water. Apply silicone border foam. May use adaptic and alginate for moderate or heavy drainage. Change daily and PRN if loose or soiled.
Compression with JAYRO bandages bilaterally, re-apply daily
Air surface
Frequent repositioning
Frequent continence care with use of barrier ointment to perineum
leg elevation when sitting
increase protein in diet
air cushion when sitting, can take upon discharge.
Follow up at wound care center call for an appointment or with Boot And Saddle Repair Person
Referrals:
Jeny Talbot PA-C [Specified Professional Personl] - 09/21/23 2:40 pm (You have a follow up visit with Dr. Ware's PA, Jeny Talbot, at the [place] office. Please call with questions. )
Ab Levi CRNP [Family Provider] -
Additional Discharge Medication Instructions: STOP lopressor (metoprolol)
Prescriptions:
New
miconazole nitrate [Miconazorb AF] 2 % Powder
1 applic topical BID Qty: 85 0RF
midodrine 5 mg Tablet
10 mg PO TID@0800,1300,1800 Qty: 60 0RF
Continued
levothyroxine 50 MCG tablet
50 mcg PO DAILY
Eliquis 2.5 MG tablet
2.5 mg PO BID
pentoxifylline 400 mg tablet extended release
400 mg PO BID
furosemide 20 mg tablet
20 mg PO DAILY
atorvastatin 20 mg Tablet
20 mg PO DAILY
doxycycline monohydrate 50 mg Capsule
50 mg PO DAILY
Patient Comments:
08/24/2023, per daughter, dose increased to one capsule BID but pt. has not started taking this new dose yet.
cholecalciferol (vitamin D3) 50 mcg (2,000 unit) Tablet
50 mcg PO DAILY
Kaopectate liquid
1 dose PO DAILYPRN PRN (Reason: diarrhea)
clotrimazole-betamethasone 1-0.05 % Cream
1 applic TOPICAL DAILYPRN PRN (Reason: apply to right groin)
Patient Comments:
08/24/2023, prescribed BID but pt. takes either once a day or not at all per daughter.
Visbiome 112.5 billion cell Capsule
1 cap PO QPM
gentamicin ointment
1 applic topical .Q4-5 DAYS
Patient Comments:
08/24/2023, per daughter, this med. was picked up at pharmacy today but not in pharmacy fill data or [facility] records.
Discontinued
metoprolol tartrate 25 mg Tablet
12.5 mg PO BID
Discharge Orders:
Discharge Patient (As Directed); Ordered 08/31/23
Ordered By: Ermias Enirquez
Discharge Date and Time
Print Language: MONGOLIAN
--- NOTE | 2023-08-31 15:29 | WOUNDNOTE ---
[facility] RN NOTE: Visited patient to follow up prior to discharge. Patient has new stage 2 PI of sacrum since last assessment. The wound is superficial and was likely caused by a combination of pressure, moisture and friction/shearing. The wound was
cleaned and local wound care was provided. Right LE wound appears barrel cleaner and dressing was maintained. Left LE wound also progresses toward healing. Skin on groin and perineum improved since prior assessment. Patient is on Versa Care Accumax and
turns easily with assistance. Heels intact with adhesive foams and off-loaded on pillows. Air cushion in chair. Patient has + audible pedal pulses and was agreeable to compression. JAYRO wraps applied bilaterally. Patient reports fair appetite and per
chart review patient eats between 10% and 100% of meals. Spoke to patient and daughter regarding skin care prevention at home including frequent continence care with use of barrier ointment, air or gel cushion to chair, frequent repositioning, and
adequate intake of protein and fluids. Plan is for discharge to [facility]. Per daughter, patient will follow up with Airplane Dispatcher for right leg wound. Orders and discharge updated.
--- NOTE | 2023-08-31 15:40 | W.DS.TRANS ---
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
-
Discharge Instructions:
Discharge Diagnosis/Procedures Right groin infection
Acute transaminitis from Diflucan
Chronic transaminitis and alk phosphatase
elevation
Chronic pyoderma gangrenosum on chronic
doxycycline
Persistent atrial fibrillation
Chronic congestive heart failure
Diet Restrict fluids to 48 oz
Activity As tolerated
Instructions:
Stand-Alone Forms:
Changes to Home Medications: No
Discharge Medications:
DC Medications w/original date entered in [employer]
apixaban 2.5 mg tablet (Eliquis) 2.5 mg PO BID Blood clot prevention/tx 09/27/17
levothyroxine 50 mcg tablet 50 mcg PO DAILY Thyroid 09/27/17
furosemide 20 mg tablet 20 mg PO DAILY Fluid Retention/Swelling 06/14/23
pentoxifylline 400 mg tablet,extended release 400 mg PO BID CVA 06/14/23
Kaopectate 1 dose PO DAILYPRN PRN diarrhea 07/11/23
atorvastatin 20 mg tablet 20 mg PO DAILY High Cholesterol 07/11/23
cholecalciferol (vitamin D3) 50 mcg (2,000 unit) tablet 50 mcg PO DAILY Supplement 07/11/23
doxycycline monohydrate 50 mg capsule 50 mg PO DAILY Infection prophylaxis LE wound 07/11/23
Lactobac no.2-Bifidobac no.1-S. thermo 112.5 billion cell capsule (Visbiome) 1 cap PO QPM Gastrointestinal Issue 08/24/23
clotrimazole-betamethasone 1 %-0.05 % topical cream 1 applic topical DAILYPRN PRN apply to right groin 08/24/23
gentamicin 1 applic topical .Q4-5 DAYS Skin Issues 08/24/23
miconazole nitrate 2 % topical powder (Miconazorb AF) 1 applic topical BID #85 grams 08/31/23
midodrine 5 mg tablet 10 mg (2 x 5 mg) PO TID@0800,1300,1800 #60 tabs 08/31/23
Home Medication Changes
clotrimazole-betamethasone 1 %-0.05 % topical cream 1 applic topical DAILYPRN PRN apply to right groin 08/24/23
gentamicin 1 applic topical .Q4-5 DAYS Skin Issues 08/24/23
miconazole nitrate 2 % topical powder (Miconazorb AF) 1 applic topical BID #85 grams 08/31/23
midodrine 5 mg tablet 10 mg (2 x 5 mg) PO TID@0800,1300,1800 #60 tabs 08/31/23
Pending Results: No
== END 2023-08-31 16:31 | DRG 871 ==
LOC: 4 EAST ACU 22:43
PROVIDERS: Clinical Nurse Specialist Family Health; Nurse Practitioner Family; Registered Nurse; ADMITTING PHYSICIAN Hospitalist; ATTENDING PHYSICIAN Internal Medicine; CONSULT PHYSICIAN Internal Medicine Cardiovascular Disease; CONSULT PHYSICIAN Internal Medicine Critical Care Medicine; EMERGENCY PHYSICIAN Emergency Medicine; FAMILY PHYSICIAN Nurse Practitioner Adult Health; OTHER PHYSICIAN Internal Medicine Infectious Disease
DX: A41.9 Sepsis, unspecified organism (principal); E43 Unspecified severe protein-calorie malnutrition; R65.21 Severe sepsis with septic shock; I50.32 Chronic diastolic (congestive) heart failure; I13.0 Hypertensive heart and chronic kidney disease with heart failure and stage 1 through stage 4 chronic kidney disease, or unspecified chronic kidney disease; R64 Cachexia; Z68.1 Body mass index [BMI] 19.9 or less, adult; N17.9 Acute kidney failure, unspecified; L88 Pyoderma gangrenosum; J98.11 Atelectasis; N39.0 Urinary tract infection, site not specified; I48.19 Other persistent atrial fibrillation; E03.9 Hypothyroidism, unspecified; E78.00 Pure hypercholesterolemia, unspecified; N18.2 Chronic kidney disease, stage 2 (mild); K52.9 Noninfective gastroenteritis and colitis, unspecified; I08.1 Rheumatic disorders of both mitral and tricuspid valves; M54.9 Dorsalgia, unspecified; E11.65 Type 2 diabetes mellitus with hyperglycemia; R68.0 Hypothermia, not associated with low environmental temperature; D64.9 Anemia, unspecified; E11.36 Type 2 diabetes mellitus with diabetic cataract; I95.9 Hypotension, unspecified; E11.22 Type 2 diabetes mellitus with diabetic chronic kidney disease; R74.01 Elevation of levels of liver transaminase levels; B96.1 Klebsiella pneumoniae [K. pneumoniae] as the cause of diseases classified elsewhere; L30.4 Erythema intertrigo; I27.29 Other secondary pulmonary hypertension; D69.59 Other secondary thrombocytopenia; I49.3 Ventricular premature depolarization; L89.151 Pressure ulcer of sacral region, stage 1; L89.621 Pressure ulcer of left heel, stage 1; L89.611 Pressure ulcer of right heel, stage 1; I87.2 Venous insufficiency (chronic) (peripheral); B37.2 Candidiasis of skin and nail; Z85.820 Personal history of malignant melanoma of skin; Z79.890 Hormone replacement therapy; Z79.01 Long term (current) use of anticoagulants; Z88.0 Allergy status to penicillin; Z88.1 Allergy status to other antibiotic agents; Z91.040 Latex allergy status; Z91.011 Allergy to milk products
CPT/HCPCS: 71045; 76700; 80053; 81003; 81015; 82533; 82962; 83036; 83605; 83735; 83880; 84100; 84436; 84439; 84443; 84481; 85025; 85027; 85610; 85730; 87040; 87070; 87077; 87086; 87186; 87205; 92526; 92610; 93005; 96361; 96365; 96366; 96367; 97116; 97163; 97167; 97535; 99285; P9047

== ENCOUNTER → 2023-09-02 10:41 | Outpatient (REF) | payer OTHER, SELFPAY ==
[2023-09-02 11:24] LABS: % Basophils 0.3 % (0-2); % Eosinophils 1.6 % (0-6); % Immature Granulocytes 0.3 % (0-0.5); % Lymphocytes 11.2 % (20.5-51.1); % Monocytes 6.6 % (1.7-9.3); Absolute Eosinophils 0.1 10^3/uL (0-0.7); Absolute Lymphocytes 0.7 10^3/uL (1.2-3.4); Absolute Monocytes 0.4 10^3/uL (0.1-0.6); Absolute Neutrophils 4.6 10^3/uL (1.4-6.5); Hematocrit 31.8 % (37.0-47.0); Hemoglobin 10.7 g/dL (12.0-16.0); Mean Corp Hgb Conc. 33.6 g/dL (33.0-37.0); Mean Corpuscular Hgb 32.2 pg (27.0-31.0); Mean Corpuscular Volume 95.8 fL (81.0-99.0); Mean Platelet Volume 12.5 fL (7.4-10.4); Nucleated Red Blood Cells % 0.3 %; Platelet Count 166 10^3/uL (130-400); Red Blood Cell Count 3.32 10^6/uL (4.20-5.40); Red Cell Dist. Width 18.1 % (11.5-14.5); White Blood Cell Count 5.8 10^3/uL (4.8-10.8)
[2023-09-02 11:39] LABS: ALT (SGPT) 155 U/L (0-35); AST (SGOT) 87 U/L (14-36); Albumin 2.9 g/dl (3.5-5.0); Alkaline Phosphatase 482 U/L (38-126); Blood Urea Nitrogen 25 mg/dl (7-17); Carbon Dioxide 28 mmol/L (22-30); Chloride 106 mmol/L (98-107); Glucose 94 mg/dl (70-99); Sodium 139 mmol/L (135-145); Total Bilirubin 1.1 mg/dl (0.2-1.3); Total Protein 5.3 g/dl (6.3-8.2); eGFR > 60.00
[2023-09-02 11:59] LABS: Potassium 4.3 mmol/L (3.5-5.1)
== END ==
LOC: OLABP 10:41
PROVIDERS: ATTENDING PHYSICIAN Family Medicine
DX: L30.4 Erythema intertrigo (principal); E87.1 Hypo-osmolality and hyponatremia; R74.01 Elevation of levels of liver transaminase levels; L88 Pyoderma gangrenosum; D64.9 Anemia, unspecified; I50.30 Unspecified diastolic (congestive) heart failure; E11.9 Type 2 diabetes mellitus without complications; I10 Essential (primary) hypertension; E78.5 Hyperlipidemia, unspecified; I48.0 Paroxysmal atrial fibrillation; I36.1 Nonrheumatic tricuspid (valve) insufficiency; E03.9 Hypothyroidism, unspecified; I89.0 Lymphedema, not elsewhere classified; I87.2 Venous insufficiency (chronic) (peripheral); Z85.820 Personal history of malignant melanoma of skin; E43 Unspecified severe protein-calorie malnutrition; A41.9 Sepsis, unspecified organism; N39.0 Urinary tract infection, site not specified; B96.1 Klebsiella pneumoniae [K. pneumoniae] as the cause of diseases classified elsewhere
CPT/HCPCS: 36415; 80053; 85025

== ENCOUNTER → 2023-09-12 08:23 | Outpatient (REF) | payer OTHER, SELFPAY ==
[2023-09-12 09:46] LABS: % Basophils 1.2 % (0-2); % Eosinophils 1.9 % (0-6); % Immature Granulocytes 0.4 % (0-0.5); % Lymphocytes 28.8 % (20.5-51.1); % Monocytes 7.5 % (1.7-9.3); % Neutrophils 60.2 % (42.2-75.2); Absolute Basophils 0.1 10^3/uL (0-0.2); Absolute Eosinophils 0.1 10^3/uL (0-0.7); Absolute Lymphocytes 1.4 10^3/uL (1.2-3.4); Absolute Monocytes 0.4 10^3/uL (0.1-0.6); Absolute Neutrophils 2.9 10^3/uL (1.4-6.5); Mean Corp Hgb Conc. 33.3 g/dL (33.0-37.0); Mean Corpuscular Hgb 32.3 pg (27.0-31.0); Mean Corpuscular Volume 96.8 fL (81.0-99.0); Mean Platelet Volume 11.4 fL (7.4-10.4); Nucleated Red Blood Cells % 0 %; Platelet Count 313 10^3/uL (130-400); Red Blood Cell Count 3.41 10^6/uL (4.20-5.40); Red Cell Dist. Width 17.3 % (11.5-14.5); White Blood Cell Count 4.8 10^3/uL (4.8-10.8)
[2023-09-12 09:50] LABS: Blood Urea Nitrogen 26 mg/dl (7-17); Calcium 9.4 mg/dl (8.4-10.2); Carbon Dioxide 31 mmol/L (22-30); Chloride 99 mmol/L (98-107); Glucose 101 mg/dl (70-99); Potassium 4.7 mmol/L (3.5-5.1); Sodium 137 mmol/L (135-145); eGFR > 60.00
== END ==
LOC: OLABP 08:23
PROVIDERS: ATTENDING PHYSICIAN Family Medicine
DX: E03.9 Hypothyroidism, unspecified (principal); I89.0 Lymphedema, not elsewhere classified; I87.2 Venous insufficiency (chronic) (peripheral); L30.4 Erythema intertrigo; E87.1 Hypo-osmolality and hyponatremia; R74.01 Elevation of levels of liver transaminase levels; L88 Pyoderma gangrenosum; D64.9 Anemia, unspecified; I50.30 Unspecified diastolic (congestive) heart failure; E11.9 Type 2 diabetes mellitus without complications; I10 Essential (primary) hypertension; E78.5 Hyperlipidemia, unspecified; I48.0 Paroxysmal atrial fibrillation; I36.1 Nonrheumatic tricuspid (valve) insufficiency; Z85.820 Personal history of malignant melanoma of skin; E43 Unspecified severe protein-calorie malnutrition; A41.9 Sepsis, unspecified organism; N39.0 Urinary tract infection, site not specified; B96.1 Klebsiella pneumoniae [K. pneumoniae] as the cause of diseases classified elsewhere
CPT/HCPCS: 36415; 80048; 85025

== ENCOUNTER → 2023-09-14 11:21 | Outpatient (REF) | payer OTHER, SELFPAY ==
[2023-09-14 12:59] LABS: Hematocrit 31.2 % (37.0-47.0); Hemoglobin 10.6 g/dL (12.0-16.0); Mean Corpuscular Hgb 32.8 pg (27.0-31.0); Mean Corpuscular Volume 96.6 fL (81.0-99.0); Mean Platelet Volume 11.2 fL (7.4-10.4); Platelet Count 299 10^3/uL (130-400); Red Blood Cell Count 3.23 10^6/uL (4.20-5.40); Red Cell Dist. Width 17.2 % (11.5-14.5); White Blood Cell Count 4.4 10^3/uL (4.8-10.8)
[2023-09-14 13:47] LABS: ALT (SGPT) 33 U/L (0-35); AST (SGOT) 36 U/L (14-36); Alkaline Phosphatase 361 U/L (38-126); Blood Urea Nitrogen 24 mg/dl (7-17); Calcium 9.1 mg/dl (8.4-10.2); Carbon Dioxide 27 mmol/L (22-30); Chloride 99 mmol/L (98-107); Glucose 90 mg/dl (70-99); Potassium 4.5 mmol/L (3.5-5.1); Sodium 135 mmol/L (135-145); Total Protein 5.6 g/dl (6.3-8.2); eGFR 54.53
== END ==
LOC: OLABP 11:21
PROVIDERS: ATTENDING PHYSICIAN Family Medicine
DX: L30.4 Erythema intertrigo (principal); E87.1 Hypo-osmolality and hyponatremia; R74.01 Elevation of levels of liver transaminase levels; L88 Pyoderma gangrenosum; D64.9 Anemia, unspecified; I50.30 Unspecified diastolic (congestive) heart failure; A41.9 Sepsis, unspecified organism; E11.9 Type 2 diabetes mellitus without complications; I10 Essential (primary) hypertension; N39.0 Urinary tract infection, site not specified; B96.1 Klebsiella pneumoniae [K. pneumoniae] as the cause of diseases classified elsewhere; I48.0 Paroxysmal atrial fibrillation; E78.5 Hyperlipidemia, unspecified; I36.1 Nonrheumatic tricuspid (valve) insufficiency; E03.9 Hypothyroidism, unspecified; I89.0 Lymphedema, not elsewhere classified; I87.2 Venous insufficiency (chronic) (peripheral)
CPT/HCPCS: 36415; 80053; 85027

== ENCOUNTER → 2023-11-30 10:22 | Outpatient (REF) | payer OTHER, SELFPAY | LOC: HWRAD 10:22 | PROVIDERS: ATTENDING PHYSICIAN Internal Medicine | DX: R79.89 Other specified abnormal findings of blood chemistry (principal); I48.91 Unspecified atrial fibrillation; E78.5 Hyperlipidemia, unspecified; N18.31 Chronic kidney disease, stage 3a | CPT/HCPCS: 76700 ==

== ENCOUNTER 2024-05-11 23:02 | Emergency (ER) | payer OTHER, SELFPAY ==
[2024-05-11 23:02] VITALS: BMI 18.0
[2024-05-11 23:09] VITALS: BP 187/100
--- NOTE | 2024-05-12 00:32 | ED.GENMED ---
History of Present Illness
General
Chief Complaint: Abdominal Symptoms
Source: patient and family
Exam Limitations: none
Time Seen by Provider: 05/11/24 23:43
Nursing documentation reviewed up to this point in time: agreed with
History of Present Illness
History of Present Illness:
88-year-old female presenting to the emergency department with concerns of enlarging hernia to the lower abdomen. Has had chronic hernia or multiple years but appears to be bigger today. No pain no redness no warmth
Past History
Past History
ED Past Medical History: Arrthythmia (Paroxysmal atrial fibrillation), CHF, HTN, Hypercholesterolemia, Hypothyroidism and Other (Colitis, Back pain, MVP, Tricuspid Valve disease, Gi bleeding. Diverticulitis, right groin Hernia)
ED Past Surgical History: Orthopedic (Cervical fusion, right foot melanoma removal) and Other (Cataracts, )
Social History
Tobacco: Non-smoker
Alcohol: None
Personal:
Living: alone
Employment: Retired
Family History
Family History: Other (reviewed and Noncontributory)
Review of Systems
Review of Systems
Allergies reviewed?: Yes
All Other Systems: ROS reviewed and negative except as documented in HPI and ROS
Phy Exam
Physical Exam
Physical Exam:
GENERAL: Alert , in no apparent distress
EYE: pupils equal and reactive
NECK: Supple, no significant adenopathy.
ENT: o/p clr, mmm.
CARDIAC: Regular rate and rhythm .
LUNGS: Clear breath sounds bilaterally, no acute respiratory distress, no wheezes/rales/rhonchi
ABDOMEN: Easily reducible large hernia to the right lower abdomen. Able to be fully reduced no pain no redness no warmth no fluctuance or induration soft, without focal tenderness, no r/g, no cvat
NEUROLOGICAL: Alert and oriented, no focal neuro deficits
SKIN: Warm and dry, skin intact.
MUSCULOSKELETAL: No edema, well perfused.
PSYCH: Normal and appropriate interaction.
Course
Vital Signs
Initial and Last Documented VS:
Initial Vital Signs
Temp Pulse Resp BP Pulse Ox
98.0 F 94 20 187/100 99
05/11/24 23:09 05/11/24 23:09 05/11/24 23:09 05/11/24 23:09 05/11/24 23:09
Last Documented Vital Signs
Temp Pulse Resp BP Pulse Ox
98.0 F 94 20 187/100 99
05/11/24 23:09 05/11/24 23:09 05/11/24 23:09 05/11/24 23:09 05/11/24 23:09
MDM/Problems Addressed
MDM/Problems Addressed:
88-year-old female presenting with concerns of enlarging hernia to the abdomen. Hernia has been there for at least a decade. This is easily reducible here no redness no warmth no evidence of strangulation, incarceration. Patient is having normal
bowel movements. Patient stable for outpatient follow-up. Return precautions given.
*Critical Care Note
Total Time (30-74mins, 75-104mins- exclusive of procedures): Not Applicable
ED Attending Note
-
Portions of this chart may have been created with voice recognition software.� Occasional wrong word or��sound alike� substitutions may have occurred due to the inherent limitations of voice recognition software.
Discharge Plan
Departure
Patient Disposition: Home (Routine Discharge)
Date of Disposition: 05/12/24
Time of Disposition: 00:34
Patient with high blood pressure during this ER visit?: No
Condition: Good
Covid-19: Not Applicable
Discharge Problem:
Abdominal hernia
Instructions: Abdominal Hernia
Prescriptions:
No Action
levothyroxine 50 MCG tablet
50 mcg PO DAILY
Eliquis 2.5 MG tablet
2.5 mg PO BID
pentoxifylline 400 mg tablet extended release
400 mg PO BID
furosemide 20 mg tablet
20 mg PO DAILY
atorvastatin 20 mg Tablet
20 mg PO DAILY
doxycycline monohydrate 50 mg Capsule
50 mg PO DAILY
Patient Comments:
08/24/2023, per daughter, dose increased to one capsule BID but pt. has not started taking this new dose yet.
cholecalciferol (vitamin D3) 50 mcg (2,000 unit) Tablet
50 mcg PO DAILY
Kaopectate liquid
1 dose PO DAILYPRN PRN (Reason: diarrhea)
clotrimazole-betamethasone 1-0.05 % Cream
1 applic TOPICAL DAILYPRN PRN (Reason: apply to right groin)
Patient Comments:
08/24/2023, prescribed BID but pt. takes either once a day or not at all per daughter.
Visbiome 112.5 billion cell Capsule
1 cap PO QPM
gentamicin ointment
1 applic topical .Q4-5 DAYS
Patient Comments:
08/24/2023, per daughter, this med. was picked up at pharmacy today but not in pharmacy fill data or [facility] records.
miconazole nitrate [Miconazorb AF] 2 % Powder
1 applic topical BID Qty: 85 0RF
midodrine 5 mg Tablet
10 mg PO TID@0800,1300,1800 Qty: 60 0RF
Referrals:
Weston Robles MD [Family Provider] -
Rito Castaneda MD [Active] - Follow up in 10 days
Activity Restrictions/Additional Instructions:
You came to the emergency department today with concerns of an abdominal hernia. This is able to be reduced here which is reassuring. Please follow-up with the general surgeon as needed. Return to the emergency department any worsening, new or
concerning symptoms.
Discharge Date and Time
Print Language: TAJIK
[2024-05-12 01:21] VITALS: BP 176/93
== END 2024-05-12 01:15 | disposition home or self-care (01) ==
LOC: EMR 23:02
PROVIDERS: EMERGENCY PHYSICIAN Emergency Medicine; FAMILY PHYSICIAN Internal Medicine
DX: K46.9 Unspecified abdominal hernia without obstruction or gangrene (principal)
CPT/HCPCS: 99282

== ENCOUNTER 2025-02-18 09:03 | Emergency (ER) | payer OTHER, SELFPAY ==
[2025-02-18 09:09] VITALS: BP 174/91
--- NOTE | 2025-02-18 09:46 | ED.GENMED ---
History of Present Illness
General
Chief Complaint: Eye Problems
Source: patient
Exam Limitations: none
Time Seen by Provider: 02/18/25 09:36
History of Present Illness
History of Present Illness:
89yoF with a history of atrial fibrillation on Eliquis, CHF, diabetes, and cataracts presenting with her daughter for evaluation of right eye redness. She woke up this morning with diffuse redness to the eye. She denies any pain or discomfort in
the eye. No reported trauma. She wears glasses but does not use contact lenses. Her daughter checked her glucose this morning which was in the 150s.
Past History
Past History
ED Past Medical History: Arrthythmia (Paroxysmal atrial fibrillation), CHF, HTN, Hypercholesterolemia, Hypothyroidism and Other (Colitis, Back pain, MVP, Tricuspid Valve disease, Gi bleeding. Diverticulitis, right groin Hernia)
ED Past Surgical History: Orthopedic (Cervical fusion, right foot melanoma removal) and Other (Cataracts, )
Social History
Tobacco: Non-smoker
Alcohol: None
Personal:
Living: alone
Employment: Retired
Family History
Family History: Other (reviewed and Noncontributory)
Phy Exam
General Physical Exam
General Presentation: well appearing and no apparent distress
General Skin: warm and dry
General Habitus: normal and elderly
General Mental: alert
ENT Exam
ENT Exam: normocephalic
Eye Exam
Eye Exam: PERRL, visual mueller normal and other (R subconjunctival hemorrhage noted with chemosis medially. PERRL. EOMs intact. Visual mueller normal. Visual acuity 20/25 in both right and left eye without corrective glasses. No hyphema noted. No
uptake with fluorescein stain. Negative Skyla sign.)
Neurological Exam
Neurological Exam: alert
Challis Coma Scale
Eye Opening: Spontaneous
Verbal Response: Oriented
Motor Response: Obeys Commands
GCS Total Score: 15
Skin Exam
Skin Exam: normal color and warm/dry
Psychiatric Exam
Psychiatric Exam: normal mood/affect
Course
Orders/Labs/Results
Orders:
Orders
02/18/25 09:38
Visual Acuity- Treatment ONCE
02/18/25 10:04
Fluorescein Sodium [Ful-Vicky] 1 mg .ROUTE .STK-MED ONE
Tetracaine HCl [Tetracaine 0.5% Ophthalmic Solution] 1 drop .ROUTE .STK-MED ONE
Vital Signs
Initial and Last Documented VS:
Initial Vital Signs
Temp Pulse Resp BP Pulse Ox
98.2 F 88 16 174/91 99
02/18/25 09:09 02/18/25 09:09 02/18/25 09:09 02/18/25 09:09 02/18/25 09:09
Last Documented Vital Signs
Temp Pulse Resp BP Pulse Ox
98.2 F 88 16 174/91 99
02/18/25 09:09 02/18/25 09:09 02/18/25 09:09 02/18/25 09:09 02/18/25 09:49
MDM/Problems Addressed
Differential Diagnosis Includes:
89yoF presenting with atraumatic R eye redness that began this morning. Denies eye pain/visual disturbance. R subconjunctival hemorrhage noted on exam with chemosis. No hyphema present. No evidence of corneal laceration/abrasion or globe rupture on
fluorescein stain. Visual acuity 20/25 bilaterally. Patient provided with reassurance. Discussed that this typically takes 2-3 weeks to resolve. Advised f/u with her eye doctor and return to the ER with any worsening symptoms. Patient and daughter
in agreement with plan.
*Pulse Oximetry
SaO2: 99
Oxygen Mode of Delivery: Room air
Patient hypoxic: no
*Critical Care Note
Total Time (30-74mins, 75-104mins- exclusive of procedures): Not Applicable
ED Attending Note
-
Portions of this chart may have been created with voice recognition software.� Occasional wrong word or��sound alike� substitutions may have occurred due to the inherent limitations of voice recognition software.
Discharge Plan
Departure
Patient Disposition: Home (Routine Discharge)
Date of Disposition: 02/18/25
Time of Disposition: 10:02
Patient with high blood pressure during this ER visit?: Yes
Discharge Problem:
Subconjunctival hemorrhage of right eye
Instructions: Subconjunctival Hemorrhage
Prescriptions:
No Action
levothyroxine 50 MCG tablet
50 mcg PO DAILY
Eliquis 2.5 MG tablet
2.5 mg PO BID
pentoxifylline 400 mg tablet extended release
400 mg PO BID
furosemide 20 mg tablet
20 mg PO DAILY
atorvastatin 20 mg Tablet
20 mg PO DAILY
doxycycline monohydrate 50 mg Capsule
50 mg PO DAILY
Patient Comments:
08/24/2023, per daughter, dose increased to one capsule BID but pt. has not started taking this new dose yet.
cholecalciferol (vitamin D3) 50 mcg (2,000 unit) Tablet
50 mcg PO DAILY
Kaopectate liquid
1 dose PO DAILYPRN PRN (Reason: diarrhea)
clotrimazole-betamethasone 1-0.05 % Cream
1 applic TOPICAL DAILYPRN PRN (Reason: apply to right groin)
Patient Comments:
08/24/2023, prescribed BID but pt. takes either once a day or not at all per daughter.
Visbiome 112.5 billion cell Capsule
1 cap PO QPM
gentamicin ointment
1 applic topical .Q4-5 DAYS
Patient Comments:
08/24/2023, per daughter, this med. was picked up at pharmacy today but not in pharmacy fill data or [facility] records.
miconazole nitrate [Miconazorb AF] 2 % Powder
1 applic topical BID Qty: 85 0RF
midodrine 5 mg Tablet
10 mg PO TID@0800,1300,1800 Qty: 60 0RF
Referrals:
Shane Garcia MD [Active, Ophthalmology]
Irena Hermosillo CRNP [Family Provider, Family Practice]
Activity Restrictions/Additional Instructions:
It takes about 2-3 weeks for the subconjunctival hemorrhage resolve.
Please call your eye doctor today to schedule a follow-up appointment this week. Return to the ER with any new or worsening symptoms.
Interventions
Interventions:
*Risk Screen - Suicide Last Done: 02/18/25 09:09
*Neglect/Abuse Screening Last Done: 02/18/25 09:09
*Nursing Disposition Last Done: 02/18/25 10:15
Discharge Date and Time
Discharge Date/Time: 02/18/25 10:16
Print Language: MAORI
== END 2025-02-18 10:16 | disposition home or self-care (01) ==
LOC: EMR 09:03
PROVIDERS: EMERGENCY PHYSICIAN Emergency Medicine; FAMILY PHYSICIAN Nurse Practitioner
DX: H11.31 Conjunctival hemorrhage, right eye (principal); I11.0 Hypertensive heart disease with heart failure; I50.9 Heart failure, unspecified; I48.0 Paroxysmal atrial fibrillation; E03.9 Hypothyroidism, unspecified; E11.9 Type 2 diabetes mellitus without complications; E78.00 Pure hypercholesterolemia, unspecified; Z79.01 Long term (current) use of anticoagulants; Z98.1 Arthrodesis status
CPT/HCPCS: 99283